=== PATIENT | female | born 1955 | race Caucasian/White ===

== ENCOUNTER 2024-06-28 09:44 | Outpatient (AMB) | payer MEDICARE, SELFPAY ==
--- NOTE | 2024-06-28 10:21 | A.OFFVIS_ITS ---
Vital Signs 06/28/24 10:23 Height 4 ft 11 in BP 152/94 H Blood Pressure Location Lt brachial Position Sitting Respiration 16 Pulse 64 Pulse Source Pulse Oximeter Pulse Oximetry (%) 98 Oxygen Delivery Method Room Air Intake Visit Reasons: Radiculopathy lumbar region Direct Marketing Coordinator Required: No Allergies No Known Allergies Allergy (Verified 06/28/24 10:25) Medication List - Last Reconciled 06/28/24 by Madison Sanchez LPN alprazolam 0.25 mg PO DAILY PRN cholecalciferol (vitamin D3) 25 mcg PO DAILY geriatric [id number]-[id number] 1 tab PO DAILY hydrocodone-acetaminophen 5-325 mg 1 tab PO BID PRN ibuprofen 200 mg PO Q6H PRN magnesium 250 mg PO DAILY vitamin B complex 1 tab PO DAILY HPI HPI Radiculopathy lumbar region: Details: History of Present Illness The patient is a 68-year-old female presenting with chronic low back pain. She has a history of lumbar spinal stenosis, scoliosis with a Cha angle of 65 degrees, and lumbar spondylolisthesis. The patient reports her low back pain primarily in the lower back, radiating towards the right buttock and right anterior thigh, described as an intensity of 8/10 in the morning and decreasing to around 3/10 with medication. This pain has been ongoing and exacerbates in the morning. She has undergone multiple treatments in the past, including two epidural steroid injections: the first in December 2023 providing relief for approximately one month, and the second in April 2024, which continues to be somewhat effective. An MRI previously showed severe spinal canal stenosis at the L4-5 level with significant scoliosis and lateral listhesis of multiple lumbar vertebrae. Her pain management strategy has included the use of Naproxen and Advil for pain relief and PRN Vicodin at night. Previous physical therapy and chiropractic manipulation have been ineffective. Pain Description - Onset: Longstanding - Quality: Radiating pain - Primary Location: Lower back - Radiation: Right buttock and right anterior thigh - Intensity: 8/10 in the morning, 3/10 with medication - Exacerbating Factors: Morning activities; standing and bending backwards - Relieving Factors: Naproxen, Advil, epidural steroids - Interference: Sleep disturbance; daily activities compromised Physical Exam - Musculoskeletal- Standing upright is uncomfortable; lumbar extension limited; right side twisting and bending backwards reproduces discomfort; forward flexion without pain Results - MRI (past result): Severe spinal canal stenosis with significant compression at the L4-5 level; moderate stenosis at L3-4 level; severe lumbar scoliosis with Cha angle of 65 degrees; lateral listhesis of L4 on L5, L3 on L4, as well as L1 on L2 Pain Management - Affect: Pain impacts sleep quality and daily activities - Analgesia: Current pain managed with Naproxen, Advil, and PRN Vicodin; pain level ranges from 3/10 to 8/10 - Adverse Effects: Concern regarding long-term steroid use and osteoporosis - Activities of Daily Living: Limited by pain, especially in the morning - Aberrant Drug Related Behaviors: None reported Physical Exam Vital Signs: Last Vital Signs Pulse 64 06/28/24 10:23 Resp 16 06/28/24 10:23 BP 152/94 H 06/28/24 10:23 Pulse Ox 98 06/28/24 10:23 Oxygen Delivery Method Room Air 06/28/24 10:23 Assessment & Plan Assessment & Plan (1) Postlaminectomy syndrome: Code(s): M96.1 - Postlaminectomy syndrome, not elsewhere classified Category: Medical (2) Scoliosis: Code(s): M41.9 - Scoliosis, unspecified Category: Medical (3) Spondylolisthesis, lumbar region: Code(s): M43.16 - Spondylolisthesis, lumbar region Category: Medical (4) Lumbar spondylosis: Code(s): M47.816 - Spondylosis without myelopathy or radiculopathy, lumbar region Category: Medical (5) Dysfunction of the multifidus muscle of lumbar region: Code(s): M62.85 - Dysfunction of the multifidus muscles, lumbar region Category: Medical Plan Plan - Discussed SCS and temporary PNS as potential strategies for refractory LBP. Patient wants to begin with trial of right L-medial branch nerve stimulator placement - Minimize use of further corticosteroid injections if nerve stimulator proves effective - Obtain insurance authorization for nerve stimulator trial - Consider continuation of epidural steroid injections if pain persists Patient was informed and verbally consented to the use of an ambient scribe for clinic note documentation during this visit. Discussion Notes I discussed with the patient the likelihood of success with a right L-medial branch nerve stimulator placement for chronic intractable back pain. I explained that, while the MRI findings are concerning, the symptoms are not as severe as the imaging suggests. Potential benefits include a 70% response rate and 3 to 6 months of pain relief. Risks of continued epidural steroid injections include osteoporosis and elevated blood sugar and blood pressure. Alternatives and the procedure were explained with the assistance of a brochure. I emphasized that nerve stimulation could reduce the need for further steroid injections. The patient was informed about insurance coverage considerations for the procedure and advised that driving is permissible with the nerve stimulator device turned off. I will follow up with her once authorization is obtained. Patient Instructions - Wait for our call regarding insurance authorization for the nerve stimulator trial - Review brochure provided about the nerve stimulator for additional information - Continue current pain medications as needed - Avoid soaking (e.g., baths, pools) with the nerve stimulator - Monitor for any new symptoms or side effects from pain management approaches Coding Level of Care Code New Pt Level 4 (73920) Diagnoses Postlaminectomy syndrome M96.1 Scoliosis M41.9 Spondylolisthesis, lumbar region M43.16 Lumbar spondylosis M47.816 Dysfunction of the multifidus muscle of lumbar region M62.85
--- OUTSIDE RECORDS SUMMARY | 2024-06-28 10:22 | XMS_ITS | Data Portability ---
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 Plan of Treatment Reminders Order Date Submit Date Provider Last Modified By Organization Details Last Modified Time Details Appointments None recorded. Lab fecal occult blood, immunoassa y, stool 2016 017 [facility] (Lab), [address] [place], [address], 8 10:50:10 CBC 2016 017 [facility] (Lab), [address] [place], [address], 7 16:57:33 CMP, serum or plasma 2016 017 [facility] (Lab), [address] [place], [address], 7 16:31:48 fecal occult blood, immunoassa y, stool 2017 018 [facility] (Lab), [address] [place], [address], 8 15:07:17 CMP, serum or plasma 2017 018 [facility] (Lab), [address] [place], [address], 8 17:18:55 CBC 2017 018 [facility] (Lab), [address], [place], [address], 8 16:33:54 lipid panel, serum 2017 018 [facility] (Lab), [address] [place], [address], 8 17:18:57 colon cancer screening, stool - Certificat Ashlee am a licensed medical profession al authorized to order Cologuard. This test is medically necessary and the patient is eligible to use Cologuard. I will maintain the privacy of test results and related informatio n as required by HIPAA. I authorize [facility] to obtain reimbursem ent for Cologuard and to directly contact and collect a second sample from the patient as appropriat e.ICD-10 Code: Z12.11 2018 019 [facility] (Cologuard Orders Only), [address], [address], [place], [address], 0 07:23:21 CBC 2018 019 [facility] (Lab), [address] [place], [address], 9 15:59:34 CMP, serum or plasma 2018 [facility] (Lab), [address], [place], [address], 9 16:15:08 cholestero l, total, serum 2018 019 [facility] (Lab), [address] [place], [address], 9 16:15:09 HDL cholestero l, serum 2018 019 [facility] (Lab), [address] [place], [address], 9 16:15:10 glycohemog lobin, total, blood 2018 019 [facility] (Lab), [address] [facility] [address], [place], [address], 9 17:36:34 TSH, serum or plasma 2018 019 [facility] (Lab), [address] [facility] [address], [place], [address], 9 16:15:[address] referral - aortic valve regurg noted on echo, abnormal ECG 2015 016 [facility] (Cardiology), [address] [place], [address], 6 13:42:57 orthopedic referral - continued right shoulder pain 2016 017 [email or web address] Not available 7 10:21:50 orthopedic referral - Left middle finger 2016 017 [facility] Not available 7 10:22:39 Procedures None recorded. Surgeries None recorded. Imaging MAMMO, screening, digital, bilateral 2018 019 [facility] (Central Scheduling), [address] [place] [address], [address], 0 11:45:15 bone density 2018 019 [facility] (Central Scheduling), [address] [place] [address], [address], 0 08:18:53 Medication Orders TobraDex 0.3 %-0.1 % eye ointment 2016 017 [facility], [address] [facility] [place], [address], 8 11:03:55 Augmentin 875 mg-125 mg tablet 2017 018 [facility], [address] [facility] [place], [address], 8 09:28:25 codeine 10 mg-guaifen esin 100 mg/5 mL oral liquid 2017 018 [facility], [address] [place], [address], 8 09:28:27 ProAir HFA 90 mcg/actuat ion aerosol inhaler 2017 018 [facility], [address] [place], [address], 8 09:28:29 ProAir HFA 90 mcg/actuat ion aerosol inhaler 2018 019 [facility], [address] [place], [address], 9 10:48:28 Patient TargetsNo targets recorded. Patient Instructions Encounter Date Encounter Id Patient Instructions Last Modified By Organization Details Last Modified Time 07/24/2015 [id number] Will send to cardiology.? ? ? Will f/u as needed. [email or web address] Not available 07/24/2015 14:17:50 11/05/2016 [id number] Declines colonoscopy referral at this time. Will do ifob. Declines any help with insomnia or shoulder pain. Will send back to ortho to have shoulder reassessed and for trigger finger. F/u as needed. [email or web address] Not available 11/05/2016 10:49:31 07/07/2017 [id number] Will return to office if symptoms do not improve with treatment. [email or web address] Not available 07/07/2017 11:45:19 02/14/2018 [id number] Breast US in Apr , will get ifob. she declines flu vacc. Will call patient when lab tests are resulted. [email or web address] Not available 02/21/2018 22:29:09 04/03/2019 [id number] controlling your asthma: care instructions [email or web address] Not available 04/03/2019 10:48:00 learning about asthma [facility] Not available 04/03/2019 10:48:00 aortic valve regurgitation: care instructions [email or web address] Not available 04/03/2019 10:36:46 Reason for Referral [employer] Referral for Ao rtic valve regurgitation aortic valve regurg noted on echo, abnormal ECG Referring Physician: Felicity Ad[facility], Encounter Date: 07/24/2015 Orthopedic Referral for Julio Cesar ps tendinitis continued right shoulder pain Referring Physician: Felicity Adame [facility], Encounter Date: 11/05/2016 Orthopedic Referral for Acqu ired trigger finger Left middle finger Referring Physician: Felicity Adame [facility], Encounter Date: 11/05/2016 Results Created Date Observation Date Name Description Value Unit Range Abnormal Flag Note LastModifiedBy Organization Detail LastModifiedTime 04/02/20 20 04/02/2020 nonin vasiv e color ectal cance r DNA + occul t blood scree lance, stool cologuard result Cancel led - Order d not applic able This order has expir ed becau se it has excee ded 365 days from the initi al order . Pleas e conta ct the labor atory to reord er this test if clini jcarlos indic ated. Test Type: Capac site algor ithmi c bety sis of stool DNA-b odell rosado with hemog lobin immun oassa y. Quant itati ve value s of indiv idual bioma rkers are not repor table and are not assoc iated with indiv idual bioma rker resul t refer ence range s. Preca ution s and Limit ation s: Colog uard is inten ded for color ectal cance r scree lance of adult s of eithe r sex, 45 years or older , who are at [facility] for CRC. Colog uard has been appro rosita for use by the U.[place]. FDA. Colog uard may produ ce a false negat page or false posit page resul t. A negat page Colog uard test resul t does not guara ntee the absen ce of color ectal cance r (CRC) or advan rehana adeno ma (pre- cance r). Patie nts with a negat page Colog uard test resul t shoul d be advis ed to nel nue parti cipat ing in a color ectal cance r scree lance progr am. The scree lance inter edi for Colog uard is curre ntly recom caesar d at an inter edi of every 3 years by the Ameri can Cance r Socie ty and U.S. Multi -Soci ety Task Force . A false posit page resul t occur s when Colog uard produ donal a posit page resul t, even thoug h a colon oscop y may not find color ectal cance r or preca ncero us polyp s. The perfo rmanc e of Colog uard has been estab lishe d in a cross secti onal study (i.e. , singl e point in time) of [facility] adult s aged 50-84 . Colog uard perfo rmanc e in patie nts ages 45 to 49 years was estim ated by elizabeth-jacinta raymond bety sis of near- age group s. Colog uard perfo rmanc e data in a 10,00 0 patie nt pivot al study using colon oscop y as the refer ence metho d can be acces sed at the follo wing locat ion: www.e xactl abs.c om/re yariel . Addit ional descr iptio n of the Colog uard test proce ss, warni ngs and preca ution s can be found at www.c psychiatric m. Rx only. Not Available [facility] (Cologuard Orders Only) [address], [place], [address], 04/02/2020 06:09:37 11/06/19 17 11/05/2016 CMP, serum or plasm a glucose 102 mg/dL 70-109 normal Not Available [address] [place] [address], [address], 11/05/2016 16:31:48 11/06/19 17 11/05/2016 CMP, serum or plasm a BUN 16 mg/dL 6-23 normal Not Available [address] [place] [address], [address], 11/05/2016 16:31:48 11/06/19 17 11/05/2016 CMP, serum or plasm a creatinine 0.87 mg/dL 0.0-1. 3 normal Not Available [address] [place] [address], [address], 11/05/2016 16:31:48 11/06/19 17 11/05/2016 CMP, serum or plasm a glomerular filtration rate > 60 normal Units : mL/mi n/1.7 3 m2 Estim ated GFR (eGFR ) shoul d not be used for patie nts with acute kidne y injur y or ESRD (crea tinin e shoul d be at stead y state and stabl e to use). eGFR is calcu lated using the 2009 CKD-E PI creat inine equat ion, which is now the recom caesar d equat ion to estim ate GFR based on creat inine per lates t KDIGO (Kidn ey Disea se Impro ving Globa l Outco mes) Guide lines . KDIGO recom mends CKD now be class ified based on cause , GFR categ ory, and album inuri a categ ory. GFR categ ories will not be repor jayy by the lab for G1 or G2 (eGFR >60). GFR categ ories shoul d be assig frida as: eGFR 45-59 = G3a (mild ly to moder ately decre ased) , eGFR 30-44 = G3b (mode ratel y to sever radha decre ased) , eGFR 15-29 G4 (cristy rely decre ased) , eGFR< 15 G5 (kidn ey failu re). Not Available [address] [place] [address], [address], 11/05/2016 16:31:48 11/06/19 17 11/05/2016 CMP, serum or plasm a calcium 9.1 mg/dL 8.3-9. 9 normal Effec tive 5: Pleas e note the refer ence range for this test has perla ed. Not Available [address] [place] [address], [address], 11/05/2016 16:31:48 11/06/19 17 11/05/2016 CMP, serum or plasm a total protein 6.8 g/dL 5.9-7. 9 normal Effec tive 5/5/1 5: Pleas e note the refer ence range for this test has perla ed. Exact pedia tric range s are not estab lishe d, but tend to be lower than adult range s. Not Available [address] [place] [address] [address] [place] [address], [address], 11/05/2016 16:31:48 11/06/19 17 11/05/2016 CMP, serum or plasm a albumin 4.1 g/dL 2.9-4. 7 normal Effec tive 015: The Album in metho d perla ed from a BCG to a BCP metho d. Resul ts will be appro ximat radha 0.4 g/dL lower than the old metho d. Laney nair note the perla e in the refer ence range . Not Available [address] [place] [address], [address], 11/05/2016 16:31:48 11/06/19 17 11/05/2016 CMP, serum or plasm a alkaline phosphatase 48 IU/L 18-210 normal Not Available [address] [place] [address], [address], 11/05/2016 16:31:48 11/06/19 17 11/05/2016 CMP, serum or plasm a SGOT (AST) 19 IU/L 15-37 normal Effec tive 5: Laney nair note the refer ence range for this test has perla ed. Not Available [address] [place] [address], [address], 11/05/2016 16:31:48 11/06/19 17 11/05/2016 CMP, serum or plasm a bilirubin total 0.3 mg/dL 0.2-1. 3 normal Not Available [address] [place] [address], [address], 11/05/2016 16:31:48 11/06/19 17 11/05/2016 CMP, serum or plasm a SGPT (ALT) 31 IU/L 13-56 normal Not Available [address] [place] [address] Drawing [address] [place] [address], [address], 11/05/2016 16:31:48 11/06/19 17 11/05/2016 CMP, serum or plasm a sodium 133 mEq/L 135-14 5 low Not Available [address] [place] [address], [address], 11/05/2016 16:31:48 11/06/19 17 11/05/2016 CMP, serum or plasm a potassium 4.3 mEq/L 3.5-5. 1 normal Not Available [address] [place] [address], [address], 11/05/2016 16:31:48 11/06/19 17 11/05/2016 CMP, serum or plasm a chloride 97 mEq/L 98-112 low Not Available [address] [place] [address], [address], 11/05/2016 16:31:48 11/06/19 17 11/05/2016 CMP, serum or plasm a CO2 31 mEq/L 20-32 normal Not Available [address] [place] [address], [address], 11/05/2016 16:31:48 11/06/19 17 11/05/2016 CMP, serum or plasm a anion gap 5 mEq/L 5-15 normal Not Available [address] [place] [address], [address], 11/05/2016 16:31:48 11/06/19 17 11/05/2016 CBC WBC count 4.9 K/mm3 4.0-11 .0 normal Not Available [address] [place] [address], [address], 11/05/2016 16:57:33 11/06/19 17 11/05/2016 CBC red blood cell count 4.17 M/uL 4.00-5 .20 normal Not Available [address] [place] [address], [address], 11/05/2016 16:57:33 11/06/19 17 11/05/2016 CBC hemoglobin 13.2 gm/dL 12.0-1 6.0 normal Not Available [address] [place] [address], [place], [address], 11/05/2016 16:57:33 11/06/19 17 11/05/2016 CBC hematocrit 40.0 % 36.0-4 6.0 normal Not Available [address] [place] [address], [address], 11/05/2016 16:57:33 11/06/19 17 11/05/2016 CBC MCV 95.8 fL 86-99 normal Not Available [address] [place] [address], [address], 11/05/2016 16:57:33 11/06/19 17 11/05/2016 CBC RDW 12.2 % 11.5-1 6.0 normal Not Available [address] [place] [address], [address], 11/05/2016 16:57:33 11/06/19 17 11/05/2016 CBC plt count 251 K/uL 140-44 0 normal Not Available [address] [place] [address], [address], 11/05/2016 16:57:33 11/06/19 17 11/05/2016 CBC ne# 3.2 K/uL 1.5-7. 5 normal Not Available [address] [place] [address], [address], 11/05/2016 16:57:33 11/06/19 17 11/05/2016 CBC ly# 1.2 K/uL 1.0-4. 5 normal Not Available [address] [place] [address], [address], 11/05/2016 16:57:33 11/06/19 17 11/05/2016 CBC MO# 0.2 K/uL 0.0-0. 8 normal Not Available [address] [place] [address], [address], 11/05/2016 16:57:33 11/06/19 17 11/05/2016 CBC eo# 0.3 K/uL 0.0-0. 4 normal Not Available [address] [place] [address], [address], 11/05/2016 16:57:33 11/06/19 17 11/05/2016 CBC ba# 0.0 K/uL 0.0-0. 2 normal Not Available [address] [place] [address], [address], 11/05/2016 16:57:33 11/06/19 17 11/05/2016 CBC ne% 64.5 % normal Not Available [address] [place] [address], [address], 11/05/2016 16:57:33 11/06/19 17 11/05/2016 CBC ly% 25.0 % normal Not Available [address] [place] [address], [address], 11/05/2016 16:57:33 11/06/19 17 11/05/2016 CBC MO% 4.9 % normal Not Available [address] [place] [address], [address], 11/05/2016 16:57:33 11/06/19 17 11/05/2016 CBC eo% 5.2 % normal Not Available [address] [place] [address], [address], 11/05/2016 16:57:33 11/06/19 17 11/05/2016 CBC ba% 0.5 % normal Not Available [address] [place] [address], [address], 11/05/2016 16:57:33 12/08/19 17 12/07/2016 sodiu m, urine sodium, random urine 21 mEq/L normal Not Available [address] [place] [address], [address], 12/07/2016 14:17:24 12/08/19 17 12/07/2016 BMP, serum or plasm a glucose 83 mg/dL 70-109 normal Not Available [address] [place] [address], [address], 12/07/2016 14:33:32 12/08/19 17 12/07/2016 BMP, serum or plasm a BUN 19 mg/dL 6-23 normal Not Available [address] [place] [address], [address], 12/07/2016 14:33:32 12/08/19 17 12/07/2016 BMP, serum or plasm a creatinine 1.17 mg/dL 0.0-1. 3 normal Not Available [address] [place] [address], [address], 12/07/2016 14:33:32 12/08/19 17 12/07/2016 BMP, serum or plasm a glomerular filtration rate 53 normal Units : mL/mi n/1.7 3 m2 Estim ated GFR (eGFR ) shoul d not be used for patie nts with acute kidne y injur y or ESRD (crea tinin e shoul d be at stead y state and stabl e to use). eGFR is calcu lated using the 2009 CKD-E PI creat inine equat ion, which is now the recom caesar d equat ion to estim ate GFR based on creat inine per lates t KDIGO (Kidn ey Disea se Impro ving Globa l Outco mes) Guide lines . KDIGO recom mends CKD now be class ified based on cause , GFR categ ory, and album inuri a categ ory. GFR categ ories will not be repor jayy by the lab for G1 or G2 (eGFR >60). GFR categ ories shoul d be assig frida as: eGFR 45-59 = G3a (mild ly to moder ately decre ased) , eGFR 30-44 = G3b (mode ratel y to sever radha decre ased) , eGFR 15-29 G4 (cristy rely decre ased) , eGFR< 15 G5 (kidn ey failu re). Not Available [address] [place] [address], [address], 12/07/2016 14:33:32 12/08/19 17 12/07/2016 BMP, serum or plasm a calcium 8.9 mg/dL 8.3-9. 9 normal Effec tive 5: Pleas e note the refer ence range for this test has perla ed. Not Available [address] [place] [address] [address] [place] [address], [address], 12/07/2016 14:33:32 12/08/19 17 12/07/2016 BMP, serum or plasm a sodium 135 mEq/L 135-14 5 normal Not Available [address] [place] [address], [address], 12/07/2016 14:33:32 12/08/19 17 12/07/2016 BMP, serum or plasm a potassium 4.4 mEq/L 3.5-5. 1 normal Not Available [address] [place] [address], [address], 12/07/2016 14:33:32 12/08/19 17 12/07/2016 BMP, serum or plasm a chloride 97 mEq/L 98-112 low Not Available [address] [place] [address], [address], 12/07/2016 14:33:32 12/08/1912/07/2016 BMP, serum or plasm a CO2 30 mEq/L 20-32 normal Not Available [address] [place] [address], [address], 12/07/2016 14:33:32 12/08/1912/07/2016 BMP, serum or plasm a anion gap 8 mEq/L 5-15 normal Not Available [address] [place] [address], [address], 12/07/2016 14:33:32 12/08/1912/07/2016 TSH, serum or plasm a thyroid stimulating hormone 2.02 uIU/m L 0.36-3 .74 normal Effec tive 5: Laney nair note the refer ence range for this test has perla ed. Not Available [address] [place] [address], [address], 12/07/2016 14:33:33 02/15/20 18 02/14/2018 CBC WBC count 5.0 K/mm3 4.0-11 .0 normal Not Available [address] [place] [address], [address], 02/14/2018 16:33:54 02/15/20 18 02/14/2018 CBC red blood cell count 4.24 M/uL 4.00-5 .50 normal Not Available [address] [place] [address], [address], 02/14/2018 16:33:54 02/15/20 18 02/14/2018 CBC hemoglobin 13.6 gm/dL 12.0-1 6.0 normal Not Available [address] [place] [address], [address], 02/14/2018 16:33:54 02/15/20 18 02/14/2018 CBC hematocrit 40.0 % 37.0-4 7.0 normal Not Available [address] [place] [address], [address], 02/14/2018 16:33:54 02/15/20 18 02/14/2018 CBC MCV 94.3 fL 80.0-1 00.0 normal Not Available [address] [place] [address], 84[address], 02/14/2018 16:33:54 02/15/20 18 02/14/2018 CBC RDW 12.1 % 11.5-1 6.0 normal Not Available [address] [place] [address], [address], 02/14/2018 16:33:54 02/15/20 18 02/14/2018 CBC plt count 249 K/uL 140-40 0 normal Not Available [address] [place] [address], 12[address], 02/14/2018 16:33:54 02/15/20 18 02/14/2018 CBC NRBC% 0.0 % 0.0-0. 7 normal Not Available [address] [place] [address], [address], 02/14/2018 16:33:54 02/15/20 18 02/14/2018 CBC ne# 2.74 K/uL 1.50-7 .50 normal Not Available [address] [place] [address] [address] [place] [address], [address], 02/14/2018 16:33:54 02/15/20 18 02/14/2018 CBC ly# 1.28 K/uL 1.00-4 .50 normal Not Available [address] [place] [address] [address] [place] [address], [address], 02/14/2018 16:33:54 02/15/20 18 02/14/2018 CBC MO# 0.41 K/uL 0.00-0 .80 normal Not Available [address] [place] [address] [address] [place] [address], [address], 02/14/2018 16:33:54 02/15/20 18 02/14/2018 CBC eo# 0.51 K/uL 0.00-0 .40 high Not Available [address] [place] [address] [address] [place] [address], [address], 02/14/2018 16:33:54 02/15/20 18 02/14/2018 CBC ba# 0.04 K/uL 0.00-0 .20 normal Not Available [address] [place] [address] [address] [place] [address], [address], 02/14/2018 16:33:54 02/15/20 18 02/14/2018 CBC Ig# 0.01 K/uL 0.00-0 .10 normal Not Available [address] [place] [address] [address] [place] [address], 78[address], 02/14/2018 16:33:54 02/15/20 18 02/14/2018 CBC ne% 54.9 % normal Not Available [address] [place] [address] [address] [place] [address], [address], 02/14/2018 16:33:54 02/15/20 18 02/14/2018 CBC ly% 25.7 % normal Not Available [address] [place] [address] [address] [place] [address], [address], 02/14/2018 16:33:54 02/15/20 18 02/14/2018 CBC MO% 8.2 % normal Not Available [address] [place] [address], [address], 02/14/2018 16:33:54 02/15/20 18 02/14/2018 CBC eo% 10.2 % normal Not Available [address] [place] [address], 336[address], 02/14/2018 16:33:54 02/15/20 18 02/14/2018 CBC ba% 0.8 % normal Not Available [address] [place] [address], 89[address], 02/14/2018 16:33:54 02/15/20 18 02/14/2018 CBC Ig% 0.2 % 0.0-1. 4 normal Not Available [address] [place] [address], 72921, 02/14/2018 16:33:54 02/15/20 18 02/14/2018 CMP, serum or plasm a glucose 91 mg/dL 70-100 normal Not Available [address] [place] [address], 74548, 02/14/2018 17:18:55 02/15/20 18 02/14/2018 CMP, serum or plasm a BUN 15 mg/dL 6-23 normal Not Available [address] [place] [address], 98347, 02/14/2018 17:18:55 02/15/20 18 02/14/2018 CMP, serum or plasm a creatinine 0.89 mg/dL 0.0-1. 3 normal Not Available [address] [place] [address], 82256, 02/14/2018 17:18:55 02/15/20 18 02/14/2018 CMP, serum or plasm a glomerular filtration rate > 60 normal Units : mL/mi n/1.7 3 m2 Estim ated GFR (eGFR ) cherise d not be used for patie nts with acute kidne y injur y or ESRD (geraldine kumar be at stead y state and stabl e to use). eGFR is calcu lated using the 2009 CKD-E PI creat inine equat ion, which is now the recom caesar d equat ion to estim ate GFR based on creat inine per lates t KDIGO (Kidn ey Disea se Impro ving Globa l Outco mes) Guide lines . KDIGO recom mends CKD now be class ified based on cause , GFR categ ory, and album inuri a categ ory. GFR categ ories will not be repor jayy by the lab for G1 or G2 (eGFR >60). GFR categ ories shoul d be assig frida as: eGFR 45-59 = G3a (mild ly to moder ately decre ased) , eGFR 30-44 = G3b (mode ratel y to sever radha decre ased) , eGFR 15-29 G4 (cristy rely decre ased) , eGFR< 15 G5 (kidn ey failu re). Not Available [address] [place] [address], [address], 02/14/2018 17:18:55 02/15/20 18 02/14/2018 CMP, serum or plasm a calcium 9.7 mg/dL 8.3-9. 9 normal Not Available [address] [place] [address], 13376, 02/14/2018 17:18:55 02/15/2002/14/2018 CMP, serum or plasm a total protein 7.0 g/dL 5.9-7. 9 normal Exact pedia tric range s are not estab lishe d, but tend to be lower than adult range s. Not Available [address] [place] [address], 758[address], 02/14/2018 17:18:55 02/15/20 18 02/14/2018 CMP, serum or plasm a albumin 4.5 g/dL 2.9-4. 7 normal Not Available [address] [place] [address], 16634, 02/14/2018 17:18:55 02/15/20 18 02/14/2018 CMP, serum or plasm a alkaline phosphatase 50 IU/L 18-210 normal Not Available [address] [place] [address], 87664, 02/14/2018 17:18:55 02/15/20 18 02/14/2018 CMP, serum or plasm a SGOT (AST) 30 IU/L 15-37 normal Not Available [address] [place] [address], [address], 02/14/2018 17:18:55 02/15/20 18 02/14/2018 CMP, serum or plasm a bilirubin total 0.4 mg/dL 0.2-1. 3 normal Not Available [address] [place] [address], 22223, 02/14/2018 17:18:55 02/15/20 18 02/14/2018 CMP, serum or plasm a SGPT (ALT) 33 IU/L 13-56 normal Not Available [address] [place] [address], 14592, 02/14/2018 17:18:55 02/15/20 18 02/14/2018 CMP, serum or plasm a sodium 138 mEq/L 135-14 5 normal Not Available [address] [place] [address], 13163, 02/14/2018 17:18:55 02/15/20 18 02/14/2018 CMP, serum or plasm a potassium 4.9 mEq/L 3.5-5. 1 normal Not Available [address] [place] [address], 98489, 02/14/2018 17:18:55 02/15/20 18 02/14/2018 CMP, serum or plasm a chloride 100 mEq/L 98-112 normal Not Available [address] [place] [address], 84204, 02/14/2018 17:18:55 02/15/20 18 02/14/2018 CMP, serum or plasm a CO2 30 mEq/L 20-32 normal Not Available [address] [place] [address], 77131, 02/14/2018 17:18:55 02/15/20 18 02/14/2018 CMP, serum or plasm a anion gap 8 mEq/L 5-15 normal Not Available [address] [place] [address] Draw[address] [place] [address], 23636, 02/14/2018 17:18:55 02/15/20 18 02/14/2018 lipid panel , serum cholesterol 228 mg/dL normal BORDE RLINE HIGH <200 Rodolfo able 200-2 39 Borde rline High >=240 High Not Available [address] [place] [address], [address], 02/14/2018 17:18:57 02/15/20 18 02/14/2018 lipid panel , serum triglyceride 76 mg/dL normal YOIL L <=150 Yoli l 150-1 99 Borde rline High 200-4 99 High >=500 Very High Not Available [address] [place] [address], 198[address], 02/14/2018 17:18:57 02/15/20 18 02/14/2018 lipid panel , serum HDL 88 mg/dL normal OPTIM AL <40 Low >=60 Optim al Not Available [address] [place] [address], 59181, 02/14/2018 17:18:57 02/15/20 18 02/14/2018 lipid panel , serum calculated LDL 125 mg/dL normal NEAR OPTIM AL <100 Optim al 100-1 29 Near optim al 130-1 59 Borde rline High 160-1 89 High >=190 Very High The above class ifica tions are based on the recom menda tions of the NCEP Exper t Panel , (ATP III, 2001) . Not Available [address] [place] [address], [address], 02/14/2018 17:18:57 02/22/20 18 02/21/2018 fecal occul t blood , immun oassa y, stool immuno fecal occult blood NEGATI VE negati ve normal Not Available [address] [place] [address], [address], 02/21/2018 15:07:17 04/03/2004/03/2019 CBC WBC count 6.1 K/mm3 4.0-11 .0 normal Not Available [address] [place] [address], [address], 04/03/2019 15:59:34 04/03/2004/03/2019 CBC red blood cell count 4.10 M/uL 4.00-5 .50 normal Not Available [address] [place] [address], 33471, 04/03/2019 15:59:34 04/03/2004/03/2019 CBC hemoglobin 13.0 gm/dL 12.0-1 6.0 normal Not Available [address] [place] [address], 64235, 04/03/2019 15:59:34 04/03/2004/03/2019 CBC hematocrit 39.7 % 37.0-4 7.0 normal Not Available [address] [place] [address], 85245, 04/03/2019 15:59:34 04/03/2004/03/2019 CBC MCV 96.8 fL 80.0-1 00.0 normal Not Available [address] [place] [address], 21403, 04/03/2019 15:59:34 04/03/2004/03/2019 CBC RDW 11.9 % 11.5-1 6.0 normal Not Available [address] [place] [address], 865[address], 04/03/2019 15:59:34 04/03/2004/03/2019 CBC plt count 244 K/uL 140-40 0 normal Not Available [address] [place] [address], 34487, 04/03/2019 15:59:34 04/03/2004/03/2019 CBC mean platelet volume 10.5 fL 8.6-12 .5 normal Not Available [address] [place] [address], 56987, 04/03/2019 15:59:34 04/03/20 19 04/03/2019 CBC NRBC% 0.0 % 0.0-0. 7 normal Not Available [address] [place] [address] [address] [place] [address], [address], 04/03/2019 15:59:34 04/03/20 19 04/03/2019 CBC ne# 3.89 K/uL 1.50-7 .50 normal Not Available [address] [place] [address], [address], 04/03/2019 15:59:34 04/03/20 19 04/03/2019 CBC ly# 1.41 K/uL 1.00-4 .50 normal Not Available [address] [place] [address], [address], 04/03/2019 15:59:34 04/03/20 19 04/03/2019 CBC MO# 0.41 K/uL 0.00-0 .80 normal Not Available [address] [place] [address], [address], 04/03/2019 15:59:34 04/03/20 19 04/03/2019 CBC eo# 0.32 K/uL 0.00-0 .40 normal Not Available [address] [place] [address], 88388, 04/03/2019 15:59:34 04/03/20 19 04/03/2019 CBC ba# 0.05 K/uL 0.00-0 .20 normal Not Available [address] [place] [address], [address], 04/03/2019 15:59:34 04/03/20 19 04/03/2019 CBC Ig# 0.01 K/uL 0.00-0 .10 normal Not Available [address] [place] [address], 59[address], 04/03/2019 15:59:34 04/03/20 19 04/03/2019 CBC ne% 63.8 % normal Not Available [address] [place] [address], [address], 04/03/2019 15:59:34 04/03/20 19 04/03/2019 CBC ly% 23.2 % normal Not Available [address] [place] [address], 6[address], 04/03/2019 15:59:34 04/03/20 19 04/03/2019 CBC MO% 6.7 % normal Not Available [address] [place] [address], 864[address], 04/03/2019 15:59:34 04/03/2004/03/2019 CBC eo% 5.3 % normal Not Available [address] [place] [address], 58[address], 04/03/2019 15:59:34 04/03/2004/03/2019 CBC ba% 0.8 % normal Not Available [address] [place] [address], 6[address], 04/03/2019 15:59:34 04/03/2004/03/2019 CBC Ig% 0.2 % 0.0-1. 4 normal Not Available [address] [place] [address], 13362, 04/03/2019 15:59:34 04/03/2004/03/2019 CMP, serum or plasm a glucose 91 mg/dL 70-100 normal Not Available [address] [place] [address], 29764, 04/03/2019 16:15:08 04/03/2004/03/2019 CMP, serum or plasm a BUN 24 mg/dL 6-23 high Not Available [address] [place] [address], 25063, 04/03/2019 16:15:08 04/03/2004/03/2019 CMP, serum or plasm a creatinine 0.82 mg/dL 0.0-1. 3 normal Not Available [address] [place] [address], 13621, 04/03/2019 16:15:08 04/03/20 19 04/03/2019 CMP, serum or plasm a glomerular filtration rate > 60 normal Units : mL/mi n/1.7 3 m2 Estim ated GFR (eGFR ) shoul d not be used for patie nts with acute kidne y injur y or ESRD (crea tinin e shoul d be at stead y state and stabl e to use). eGFR is calcu lated using the 2009 CKD-E PI creat inine equat ion, which is now the recom caesar d equat ion to estim ate GFR based on creat inine per lates t KDIGO (Kidn ey Disea se Impro ving Globa l Outco mes) Guide lines . KDIGO recom mends CKD now be class ified based on cause , GFR categ ory, and album inuri a categ ory. GFR categ ories will not be repor jayy by the lab for G1 or G2 (eGFR >60). GFR categ ories shoul d be assig frida as: eGFR 45-59 = G3a (mild ly to moder ately decre ased) , eGFR 30-44 = G3b (mode ratel y to sever radha decre ased) , eGFR 15-29 G4 (cristy rely decre ased) , eGFR< 15 G5 (kidn ey failu re). Not Available [address] [place] [address], 7[address], 04/03/2019 16:15:08 04/03/20 19 04/03/2019 CMP, serum or plasm a calcium 9.7 mg/dL 8.1-10 .4 normal Not Available [address] [place] [address], 80453, 04/03/2019 16:15:08 04/03/20 19 04/03/2019 CMP, serum or plasm a total protein 6.9 g/dL 5.9-7. 9 normal Not Available [address] [place] [address], 54617, 04/03/2019 16:15:08 04/03/20 19 04/03/2019 CMP, serum or plasm a albumin 4.2 g/dL 2.9-4. 7 normal Not Available [address] [place] [address] [place], [address], 04/03/2019 16:15:08 04/03/20 19 04/03/2019 CMP, serum or plasm a alkaline phosphatase 44 IU/L 18-210 normal Not Available [address] [place] [address], 82268, 04/03/2019 16:15:08 04/03/20 19 04/03/2019 CMP, serum or plasm a SGOT (AST) 25 IU/L 15-37 normal Not Available [address] [place] [address], [address], 04/03/2019 16:15:08 04/03/20 19 04/03/2019 CMP, serum or plasm a bilirubin total 0.5 mg/dL 0.2-1. 3 normal Not Available [address] [place] [address], 40128, 04/03/2019 16:15:08 04/03/20 19 04/03/2019 CMP, serum or plasm a SGPT (ALT) 31 IU/L 13-56 normal Not Available [address] [place] [address], [address], 04/03/2019 16:15:08 04/03/20 19 04/03/2019 CMP, serum or plasm a sodium 133 mEq/L 135-14 5 low Not Available [address] [place] [address], 90257, 04/03/2019 16:15:08 04/03/20 19 04/03/2019 CMP, serum or plasm a potassium 4.5 mEq/L 3.5-5. 1 normal Not Available [address] [place] [address], 30068, 04/03/2019 16:15:08 04/03/20 19 04/03/2019 CMP, serum or plasm a chloride 97 mEq/L 98-112 low Not Available [address] [place] [address], 20906, 04/03/2019 16:15:08 04/03/20 19 04/03/2019 CMP, serum or plasm a CO2 28 mEq/L 20-32 normal Not Available [address] [place] [address] [address] [place] [address], [address], 04/03/2019 16:15:08 04/03/20 19 04/03/2019 CMP, serum or plasm a anion gap 8 mEq/L 5-15 normal Not Available [address] [place] [address] Draw[address] [place] [address], 099[address], 04/03/2019 16:15:08 04/03/20 19 04/03/2019 rafa stero l, total , serum cholesterol 234 mg/dL normal BORDE RLINE HIGH <200 Rodolfo able 200-2 39 Borde rline High >=240 High The above class ifica tions are based on the recom menda tions of the NCEP Exper t Panel , (ATP III, 2001) . Not Available [address] [place] [address], 90114, 04/03/2019 16:15:09 04/03/20 19 04/03/2019 HDL rafa stero l, serum HDL 80 mg/dL normal OPTIM AL <40 Low >=60 Optim al The above class ifica tions are based on the recom menda tions of the NCEP Exper t Panel , (ATP III, 2001) . Not Available [address] [place] [address], 90069, 04/03/2019 16:15:10 04/03/20 19 04/03/2019 TSH, serum or plasm a thyroid stimulating hormone 2.88 uIU/m L 0.36-3 .74 normal Not Available [address] [place] [address] [place] [address], 08274, 04/03/2019 16:15:11 04/03/20 19 04/03/2019 glyco hemog lobin , total , blood glycohemoglo bin (A1C) 5.5 % 4.2-6. 3 normal Recen t trans fusio n will affec t hemog lobin A1c resul ts. Not Available [address] [place] [address], 0[address], 04/03/2019 17:36:33 09/30/19 16 09/27/2015 MAMMO , scree lance, digit al, bilat tommyl [facility] DEPART [address] kaitlin kumar [place].0 1201-4 [phone] Patien t: MP VELEZ Phone: Exam Date:0 6 Exam: Dig Mammo Screen ing [place] Attend [facility] M.D.:ANDREAS MARIE MD :10/02 Age/Se x: 59/F Robert beltran M.D.: CHUY LARSEN MD EEsperanza Attend [facility] M.D.: Francis Lam: BRANDI LARSEN MD X-Ray #: [id number] Locati on: RAD.WC Other Locati on: Clinic al Histor y: ROUTIN E #[id number] 64.001 - DIG MAMMO SCREEN ING [place] BILATE RAL DIGITA L SCREEN ING MAMMOG TYRA WITH CAD: 09/30/19 16 Compar basil is made to exams dated: 015 mammog tyra, 014 mammog tyra, and 06/29/19 13 mammog tyra - [facility] . The tissue of both breast s is hetero geneou sly dense, your patien t has been inform ed of her densit y. Curren t study was also evalua jayy with a Comput er Aided Detect ion (CAD) system . There is a benign densit y in the left breast . No suspic ious masses , calcif icatio ns, or other findin gs are seen in either breast . There has been no signif icant interv al change . IMPRES VLADISLAV: BENIGN There is no mammog raphic eviden ce of malign dora. A 1 year screen ing mammog tyra is recomm ended. The patien t will be notifi ed of the result s by mail. This exam was interp reted at [facility] . Lisa. Seymour haley l/penr ad:09/29 15:17: 56 [facility] Techno logist : Hope cárdenas RT R M, [facility] letter sent: A1 Mammog bindu Normal Mammog tyra BI-RAD S: 2 Benign Access ion Number : [id number] Transc ribed by: MONTEZ Haddadp reting Physic rg: CARINA SANDOVAL MD Rec'd in [place] on : 1531 Electr onical ly Signed by: CARINA SANDOVAL MD on 1517 Techno logist : SK Exam CPT #: G0202, Order #: [id number] Report #: [id number] Med Rec#:[id number] Report Status : Signed [facility] (Radiology) [address] [place] [address], [address], 09/30/2015 17:23:16 10/06/19 17 09/30/2016 MAMMO , scree lance, digit al, bilat eral [facility] DIAGNO STIC IMAGIN G DEPART [facility] IM[facility] G DEPART [address]0 1201-4 [phone] Patien t: MP VELEZ Phone: Exam Date:0 7 Exam: Dig Mammo Screen ing [place] Attend francis M.DShruthi:ANDREAS MARIE MD :10/02 Age/Se x: 61/F Robert beltran M.D.: CHUY LARSEN MD, E.D. Attend francis M.DShruthi: Primes y Tyler MEsperanza: BRANDI LARSEN MD X-Ray #: [id number] Locati on: RAD.WC Other Locati on: Clinic al Histor y: ROUTIN E #01962 08.001 - DIG MAMMO SCREEN ING [place] BILATE RAL DIGITA L SCREEN ING MAMMOG TYRA WITH CAD: 017 Compar basil is made to exams dated: 09/30/19 16 mammog tyra, 015 mammog tyra, 014 mammog tyra, 06/29/2012 mammog tyra, and 012 mammog tyra - [facility] . The tissue of both breast s is hetero geneou sly dense, your patien t has been inform ed of her densit y. Currchad t study was also evalua jayy with a Comput er Aided Detect ion (CAD) system . There is a benign densit y in both breast s. There also are benign calcif icatio ns in the right breast . No suspic ious masses , calcif icatio ns, or other findin gs are seen in either breast . There has been no signif icant interv al change . IMPRES VLADISLAV: BENIGN There is no mammog raphic eviden ce of malign dora. A 1 year screen ing mammog tyra is recomm ended. The patien t will be notifi ed of the result s by mail. This exam was interp reted at [facility] . Gerhard lopez MD ek/pen rad: 7 12:05: 37 [facility] Techno logist : Rogerio De La O , [facility] letter sent: A1 Mammog bindu Normal Mammog tyra BI-RAD S: 2 Benign Access ion Number : [id number] Transc ribed by: [facility] Interp reting Physic rg: GERHARD WYATT MD Rec'd in [place] on : 1407 Electr onical ly Signed by: ROMI WYATT MD on 1205 Techno logist : KL Exam CPT #: G0202, Order #: [id number] Report #: [id number] Med Rec#:[id number] Report Status : Signed [facility] (Radiology) [address] [place], [address], 10/05/2016 14:21:16 10/06/19 17 10/05/2016 MAMMO , grabiele lance, digit al, bilat eral No observ ation record ed. [facility] ([facility]) [address], [place], [address], 10/05/2016 18:08:22 10/30/19 18 10/27/2017 MAMMO , scree lance, digit al, bilat eral [facility] DIAGNO STIC IMAGIN G DEPART [facility]ULT WOMEN' S IMAGIN G [address],[facility] kaitlin kumar [place].0 [phone] Patien t: MP VELEZ Phone: Exam Date:0 8 Exam: Dig Mammo Screen ing [place] Attend [facility] M.D.:ANDREAS MARIE MD :10/02 Age/Se x: 62/F Ordernarendra beltran M.D.: CHUY LARSEN MD EEsperanza Attend [facility] M.D.: Primar y Care M.D.: BRANDI LARSEN MD X-Ray #: [id number] Locati on: RAD.WC Other Locati on: Clinic al Histor y: ROUTIN E #[id number] 98.001 - DIG MAMMO SCREEN ING [place] BILATE RAL DIGITA L SCREEN ING MAMMOG TYRA WITH CAD: 10/28/19 18 Compar basil is made to exams dated: 017 mammog tyra, 09/30/19 16 mammog tyra, 015 mammog tyra, 14 mammog tyra, 06/29/19 13 mammog tyra, and 012 mammog tyra - [facility] . The tissue of both breast s is hetero geneou sly dense, your patien t has been inform ed of her densit y. Curren t study was also evalua jayy with a Comput er Aided Detect ion (CAD) system . No suspic ious masses , calcif icatio ns, or other findin gs are seen in either breast . IMPRES VLADISLAV: BENIGN There is no mammog raphic eviden ce of malign dora. A 1 year screen ing mammog tyra is recomm ended. Increa sed lifeti me risk for develo ping breast cancer based on: -Famil y histor y, 1st degree relati ve; post menopa usal Given the calcul ated risk, recomm end annual screen ing breast MRI in additi on to annual screen ing mammog bindu, altern ating each every 6 months . Breast MRI is recomm ended in 6 months . RISK ASSESS MENT: Based on the NCI/NS ABP BCRA tool, this patien edgardo's calcul ated lifeti me risk for develo ping breast cancer is 21.4%. The patien t will be notifi ed of the result s by mail. This exam was interp reted at [facility] . Gladys Trejo M.D. cl/:10/28/2017 16:42: [facility] : Surekha John do RT , [facility] letter sent: A1 Mammog bindu Normal Mammog tyra BI-RAD S: 2 Benign Access ion Number : [id number] Transc ribed by: [facility] Interp reting Physic rg: GLADYS TREJO MD Rec'd in [place] on : 1642 Electr onical ly Signed by: GLADYS TREJO MD on 164 Techno logist : YAYA Exam CPT #: 47881, Order #: [id number] Report #: [id number] [facility] Rec#:M [id number] Report Status : Signed [facility] (Radiology) [address] [place], [address], 10/30/2017 06:48:19 04/04/20 19 08/01/2018 US, echo ardio gram No observ ation record ed. BARCODE Not Available 2018 12:54:21 11/20/19 20 MAMMkelli Xiong digit al, bilat eral No observ ation record ed. [facility] (Central Scheduling) [address] [facility], [place], [address], 11/20/2019 16:08:59 10/03/19 21 2020 kelli [place] bilat eral [facility]ic [facility] [address] [place] [address] Mammog bindu Report Signed Patien t: Mp Velez 2793 : [address]: Aquilino stewart EMR ID: [id number] Age/Se x: 65/F E.D. Attend ing: Acct: [id number] Loc: RAD.WC PCP: Aquilino stewart MD Admit/ Svc Date: Orderi ng Physic rg: Aquilino stewart MD Date of Servic e: Proced ure(s) : MM screen ing mammo BI Reason for Exam: Routin e Access ion Number (s): [id number] Fax to: cc: Aquilino stewart MD #[id number] - MM SCREEN ING MAMMO BI EXAM: BILATE RAL DIGITA L SCREEN ING MAMMOG TYRA 3D/2D WITH CAD: 021 COMPAR ISONS: Compar basil is made to exams dated: 020 mammog tyra, 10/28/19 18 mammog tyra, and 017 [facility] . TECHNI QUE: Digita l mammog bindu was perfor med with Tomaidan gaytan Curren t study was also evalua jayy with a Comput er Aided Detect ion (CAD) system . BREAST COMPOS ITION: The breast s are hetero geneou sly dense, which may obscur e small masses . Your patien t has been inform ed of her densit y. FINDIN GS: No suspic ious masses , calcif icatio ns, or other findin gs are seen in either breast . There has been no signif icant interv al change . IMPRES VLADISLAV: NEGATI VE There is no mammog raphic eviden ce of malign dora. A 1 year screen ing mammog tyra is recomm ended. RISK ASSESS MENT: Amy Romero calcul ations report this patien t's lifeti me risk for develo ping breast cancer at 12.8%. The patien t will be notifi ed of the result s by mail. This exam [facility] at [facility] . Carina Sandoval MD ll/pen rad: 15:08: 52 [facility] Techno logist (s): Tyrell katz RT(R)( M), [facility] letter sent: A1 Mammog bindu Normal Mammog tyra BI-RAD S: 1 Negati ve Electr onical ly signed on at 1508 by Carina Sandoval MD. PKRUTI AK [facility] (Radiology) [address] [place] [address], [address], 2020 20:59:56 12/07/1906/19/2019 MAMMO , grabiele lance, bilat eral No observ ation record ed. [email or web address] Not Available 2020 16:44:45 Result Notes None recorded. 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 [address], [address], [facility] 6 13:37:41 Asthma 468588505 Active [address], [address], [facility] 6 13:37:41 Mass of body structur e 424960936 Completed 06/17/[address], [address], [facility] 6 13:37:41 Shoulder joint painful on movement 071499226 Completed 04/03/2019 Teresa Holland MD [address] [place] [address], [address], [facility] [employer] 9 10:34:03 Menopaus al symptom 69560035 Completed 06/17/2015 Felicity Dialloaag Anp [address] [place] [address], [address], [facility] [employer] 6 13:37:41 Acute sinusiti s 27189815 Completed 06/17/2015 Felicity Dialloaag Anp [address] [place] [address], [address], [facility] [employer] 6 13:37:41 Primary fibromya lgia syndrome 07152483 Completed 04/03/2019 Teresa Holland MD [address] [place] [address], [address], [facility] [employer] 9 10:33:42 Disorder of rotator cuff 975047292 Completed 04/03/2019 Teresa Holland MD [address] [place] [address], [address], [facility] [employer] 9 10:34:16 Electroc ardiogra m abnormal 250724085 Active Felicityterry Adame [address], [address], [facility] [employer] 6 14:32:49 Aortic valve regurgit ation 53570907 Active Felicityterry Dial[address], [address], [facility] [employer] 6 14:17:50 Atopic dermatit is 22268254 Completed 201604/03/2019 Teresa Holland MD [address] [place] [address], [address], [facility] [employer] 9 10:34:37 Biceps tendinit is 988506339 Active 2016 s/p right shoulder surgery 2015 Teresa Holland MD [address] [place] [address], [address], [facility] [employer] 9 10:36:26 Acquired trigger finger 9794980 Active 2016 Felicity Guzman [address] [place] [address], [address], [facility] [employer] 7 10:57:59 Insomnia 333199275 Completed 201604/03/2019 Teresa Holland MD [address] [place] [address], [address], [facility] [employer] 9 10:34:27 Difficul ty swallowi ng 816220665 Active 2016 Felicity Guzman [address] [place] [address], [address], [facility] [employer] 7 10:58:03 Problem Notes None recorded. Procedures Surgical History Date Name Laterality Status Provider Name and Address Organization Details Recorded Time 06/24/19 16 Orthopedic Surgery completed Missy Zacarias [facility] 07/24/2015 13:51:16 05/24/19 07 Colonoscopy completed Missy Zacarias [facility] 07/24/2015 13:51:32 05/24/19 02 Hysterectomy completed DHIRAJ Rivas [address] [place] [address], [address], [facility] [employer] 02/07/2014 11:37:39 08/22/18 60 Tonsillectomy completed DHIRAJ Rivas [address] [place] [address], [address], [facility] [employer] 12/07/2012 11:33:04 Imaging Results Imaging Date Name Status LastModified by Organization Details LastModified Time 09/27/2015 MAMMO, screening, digital, bilateral completed [facility] (Radiology) [address] [place] [address], [address], 09/30/2015 17:23:16 09/30/2016 MAMMO, screening, digital, bilateral completed [facility] (Radiology) [address] [place] [address], [address], 10/05/2016 14:21:16 10/05/2016 MAMMO, screening, digital, bilateral completed [facility] ([facility]) [address] [place] [address], [place], [address], 10/05/2016 18:08:22 10/27/2017 MAMMO, screening, digital, bilateral completed [facility] (Radiology) [address] [place] [address], [address], 10/30/2017 06:48:19 08/01/2018 US, echocardiogram completed BARCODE Inform ation not available 04/04/2019 12:54:21 11/20/2019 MAMMO, screening, digital, bilateral completed [facility] (Central Scheduling) [address] [place] [address], [address], 11/20/2019 16:08:59 2020 MAMMO, screening, bilateral completed [facility] (Radiology) [address] [place] [address], [address], 2020 20:59:56 06/19/2019 MAMMO, screening, bilateral completed [email or web address] Information not available 12/11/2020 16:44:45 Procedure Notes None recorded. Medical Equipment None Reported. Allergies No known drug allergies Medications Name Sig Start Date Stop Date Status Note LastModified by Organization Details LastModified Time Prescript ion - Prior Authoriza tion Request active PA for shingles vac. Not Available Not Available Not Available Augmentin 875 mg-125 mg tablet Take 1 tablet twice a day by oral route for 10 days. 02/14 completed Not Available Not Available Not Available ampicilli n 500 mg capsule Take 1 capsule every 6 hours by oral route. 11/05 completed no longer taking Not Available Not Available Not Available prednison e 20 mg tablet Take 2 tablets every day by oral route for 5 days. 04/23 completed Not Available Not Available Not Available Flonase 50 mcg/actua tion nasal spray,shira pension Inhale 1 spray every day by intranas al route. 2012 active Not Available Not Available Not Avai lable acetamino phen 300 mg-codein e 30 mg tablet 02/07 completed Not Available Not Available Not Available TobraDex 0.3 %-0.1 % eye ointment APPLY A SMALL AMOUNT INTO THE CONJUNCT IVAL SAC(S) IN AFFECTED EYE(S) BY OPHTHALM IC ROUTE 2 TIMES PER DAY 07/07 completed Not Available Not Available Not Available amoxicill in 500 mg tablet Take 2 tablets every 12 hours by oral route for 10 days. 07/16 completed Not Available Not Available Not Available oxycodone -acetamin ophen 5 mg-325 mg tablet active Not Available Not Available Not Available diazepam 2 mg tablet 11/05 completed no longer taking Not Available Not Available Not Available codeine 10 mg-guaife nesin 100 mg/5 mL oral liquid Take 10 mL every 4 hours by oral route as needed. 02/14 completed Not Available Not Available Not Available estradiol 0.5 mg tablet Take 1 tablet every day by oral route. 02/07 completed Not Available Not Available Not Available albuterol sulfate HFA 90 mcg/actua tion aerosol inhaler Inhale 2 puffs every 4 hours by inhalati on route as needed. active Not Available Not Available No t Available diazepam 5 mg tablet 02/07 completed Not Available Not Available Not Available nitrofura ntoin monohydra te/macroc rystals 100 mg capsule Take 1 capsule twice a day by oral route as directed for 5 days. 04/03 completed Not Available Not Available Not Available Zostavax (PF) 19,400 unit/0.65 mL subcutane ous suspensio n active Not Available Not Available Not Available Vitals Date Recorded Body height Heart rate Systolic blood pressure Diastolic blood pressure Provider Name and Address Organization Details Last Updated DateTime 07/24/2015 147.32 cm 68 /min 114 mm[Hg] 72 mm[Hg] Missy Hernandez in [facility] 07/24/2015 13:50:06 Date Recorded Body height Body mass index (BMI) Body weight Heart rate Respiratory rate Systolic blood pressure Diastolic blood pressure Provider Name and Address Organization Details Last Updated DateTime 7 146.05 cm 24.7 kg/m2 75196.7 1 g 68 /min 16 /min 120 mm[Hg] 80 mm[Hg] Kate Gusman LPN [facility] 7 10:16:41 Date Recorded Body height Body temperature Oxygen saturation Oxygen saturation in Arterial blood by Pulse oximetry Heart rate Systolic blood pressure Diastolic blood pressure Provider Name and Address Organization Details Last Updated DateTime 8 146.05 cm 99.2 [degF] 97 % 97 % 74 /min 118 mm[Hg] 84 mm[Hg] Batsheva Harrell [facility] 8 11:03:35 Date Recorded Body height Body mass index (BMI) Body weight Heart rate Systolic blood pressure Diastolic blood pressure Provider Name and Address Organization Details Last Updated DateTime 8 146.05 cm 24.7 kg/m2 04559.7 1 g 72 /min 116 mm[Hg] 80 mm[Hg] Lety Baron [facility] 8 09:29:36 Date Recorded Body weight Body mass index (BMI) Body height Heart rate Systolic blood pressure Diastolic blood pressure Provider Name and Address Organization Details Last Updated DateTime 9 12771.9 g 25.1 kg/m2 146.05 cm 64 /min 110 mm[Hg] 68 mm[Hg] Lety Baron [facility] 9 10:12:12 Social History Question Answer Notes LastModified by Organizat ion Details LastModified Time Tobacco Smoking Status Former Smoker 1 pdd x 5-8 years Quit 1978 Missy Tiwari, [address], [address], [facility] 02/07/2014 11:38:26 Do You Have An Advance Directive? Yes Form Given 03/06/15-F orm Brought In. Information not available 07/06/2012 What Is Your Level Of Alcohol Consumption? Occasional Rare Information not available 11/07/2014 How Many Years Have You Consumed Alcohol? 30 Information not available 11/07/2014 Animal Exposure? Yes Information not available 12/07/2012 What Is Your Level Of Caffeine Consumption? Moderate Information not available 07/06/2012 How Much Tobacco Do You Chew? None Information not available 07/06/2012 What Type Of Can Maker Do You Use? Relative Information not available 12/07/2012 Which Illicit Or Recreational Drugs Have You Used? 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 No Information not available 07/06/2012 Hard Of Hearing Or Deaf In One Or Both Ears? No Information not available 11/07/2014 What Is Your Home Situation? Mother Information not available 12/07/2012 Do You Use Insect Repellent Routinely? No Information not available 12/07/2012 Legally Blind In One Or Both Eyes? No Information not available 11/07/2014 Foreign Travel No Informatio n not available 12/07/2012 Do You Have A Family History Of Mental Health Or Substance Abuse? No [email or web address] Information not available 01/16/2015 Have You Ever Experienced Any Trauma Such As A Sexual Assault, Domestic Violence, Combat Experience, A Sudden Of A Loved One, Or Anything That Made You Excessively Afraid? No Information not available 12/07/2012 Language Sammarinese Information not available 12/07/2012 Country Of Origin [facility] Information not available 12/07/2012 Dietary Specific Information not available 12/07/2012 Marital Status Informatio n not available 07/06/2012 What Was The Date Of Your Most Recent Tobacco Screening? 02/14/2018 Information not available 12/14/2018 How Many Children Do You Have? 2 Information not available 07/06/2012 Obese No Information not available 11/07/2014 Overweight No Information not available 11/07/2014 What Is Your Parents' Marital Status? Information not available 12/07/2012 Performs Monthly Self-breast Exam? Yes Information not available 12/07/2012 Do You Use Your Seat Belt Or Car Seat Routinely? Yes Information not available 12/07/2012 Seat Belts Used Routinely Yes Information not available 07/06/2012 Number Of Sexual Partners 0 Information not available 12/07/2012 Smoke Alarm In Home Yes Information not available 07/06/2012 Do You Have Smoke And Carbon Monoxide Detectors In Your Home? Yes Information not available 12/07/2012 At What Age Did You Start Smoking Tobacco? 13 Information not available 03/06/2015 Are You Passively Exposed To Smoke? No Information not available 11/07/2014 How Much Tobacco Do You Smoke? No Information not available 11/05/2014 General Stress Level Medium Information not available 12/07/2012 Do You Use Sunscreen Routinely? Yes Information not available 07/06/2012 How Many Years Have You Smoked Tobacco? 10 Information not available 11/07/2014 Sex: Unknown Functional Status Question Answer Note LastModified by Organization D etails LastModified Time What is your exercise level? Moderate Information not available 12/07/2012 Mental Status None recorded. Family History Relationship Description Onset Age of this Age Resolved Age Notes LastModified by Organization Details LastModified Time Sister Problem 59 breast cancer at 47 [email or web address] Not available 07/24/2015 13:51:16 Brother Problem 52 well [email or web address] Not availabl e 07/24/2015 13:51:16 Brother Problem 60 pancre atic cancer [email or web address] Not available 07/24/2015 13:51:16 Sister Problem 64 well [email or web address] Not available 07/24/2015 13:51:16 Father Problem 84 CVA Not available 07/24/2015 13:51:16 Mother Problem 89 well [email or web address] Not available 07/24/2015 13:51:16 Medical History Condition Response Gout N Gynecologic problems N Muscle, Joint, or Bone Problems Y Arthritis N Infertility N Cancer (of any kind) N Defects or Inherited Diseases N Stroke N Headache N Asthma, COPD, Breathing or Lung Disorder Y Cardiac History, Heart Murmur, [place] N Skin Problems N Food or Environmental Allergies N Bleeding Disorder N Neuropathy N Anxiety/Depression N Hernia N Developmental or Behavioral Disorders N Blood Pressure High or Low N Breast Problem N Dizziness or Fainting N Anemia, Blood Clot, or Bleeding Disorder N Seizures or Convulsions N Eye or Vision Problems N Thyroid Problems N GI Problems N Diabetes N Bladder,Kidney Problems or Recurrent UTI 's N Prostate issues, ED or Sexual Problem N Insomnia N Cholesterol High or Low N Chronic Pain N Ear Nose & Throat (ENT) Problems N Osteoporosis N Liver Disease or Hepatitis N Gynecological History Statement/Question Response If Post Menopausal, Age at Menopause [age] Obstetrics History GPAL:G 2 P 0 0 0 2 Type Value Living 2 Total 2 Immunizations Vaccine Type Date Status Note Provider Nam e and Address Organization Details Recorded Time Td (adult), 2 Lf tetanus toxoid, preservative free, adsorbed 7 completed Not Available [facility] 06/24/2019 02:16:57 Td (adult), 2 Lf tetanus toxoid, preservative free, adsorbed 3 completed Not Available [facility] 06/24/2019 02:16:57 Tdap 2 completed Not Available [facility] 06/24/2019 02:16:57 Past Encounters Encounter ID Performer Location Encounter Start Date Encounter Closed Date Diagnosis/Indication Diagnosis SNOMED-CT Code Diagnosis ICD10 Code Diagnosis Note [id number] Carina Benitez CMA [address] [address] 07/06/2012 09:47:42 07/06/2012 10:34:14 [id number] DHIRAJ Rivas [address] [address] 12/07/2012 10:39:33 12/07/2012 12:13:16 [id number] Kate Gusman LPN [address] [address] 02/07/2014 10:39:26 02/07/2014 10:53:[id number] [address] 02/07/2014 11:05:26 02/07/2014 11:58:00 Adult health examination [id number] [address] [address] 04/13/2014 11:17:25 04/13/2014 12:18:25 Multiple joint pain 80846795 [id number] Kate Gusman LPN [address] [address] 04/18/2014 08:51:25 04/18/2014 09:42:28 Cervical radiculopathy 05040388 [id number] [address] [address] 11/07/2014 08:57:07 11/07/2014 10:20:16 Cervical radiculopathy 29746401 Scoliosis deformity of spine 290751185 Asthma 590400137 Adult heal th examination 792665763 [id number] Missy Zacarias CMA [address] [address] 01/16/2015 09:24:09 01/16/2015 10:11:54 Mass of body structure 987771116 Right lateral superior knee [id number] [address] [address] 03/06/2015 12:19:16 03/06/2015 12:56:20 Shoulder joint painful on movement 442410793 M25.519 [id number] Felicity Adame Anp [address] [address] 06/17/2015 12:50:30 06/17/2015 13:58:38 Disorder of rotator cuff 806939829 M75.81 Electrocar diogram abnormal 876379638 R94.31 [id number] Juju Dang [address] [address] 07/24/2015 13:40:32 07/24/2015 14:22:46 Aortic valve regurgitation 30159684 I35.1 [id number] Felicity Adame Anp [address] [address] 11/05/2016 09:50:55 11/05/2016 11:06:32 Adult health examination 354122833 Z00.00 Atopic dermatitis 166260 01 L20.9 of eyelids Neck pain 38738793 M54.2 right. S/P rotator cuff surgery Biceps tendinitis 231414 007 M75.21 Right. S/p surgery with Dr Ilana neal finger 3568231 M65.30 Insomnia 003133994 G47.0 0 Difficulty swallowing 28 2825053 R13.10 Screening for malignant neoplasm of colon 215089956 Z12.11 Scoliosis deformity of spine 243943437 M41.9 Has been worked up Aortic edi ve regurgitation 59686389 I35.[address] Yuval lemon [id number] Felicity Guzman [address] [address] 07/07/2017 10:48:38 07/07/2017 11:46:44 Pneumonia 030156959 J18.9 [id number] Felicity Guzman [address] [address] 02/14/2018 09:20:09 02/14/2018 10:21:42 Adult health examination 031421738 Z00.00 Aortic edi ve regurgitation 55755908 I35.[address] Yuval lemon 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 M65.30 Difficulty swallowing 28 0747193 R13.10 declines referral Screening for malignant neoplasm of colon 377130528 Z12.11 [id number] Teresa Holland MD [address] [address] 04/03/2019 09:50:51 04/03/2019 10:55:10 Adult health examination 404796468 Z00.00 does yoga and weights , will get cologuard / mammo utd, repeat bone density Screening for malignant neoplasm of colon 499201009 Z12.11 Z12.12 Menopause present 712432 006 N95.1 Aortic edi ve regurgitation 92453639 I35.1 gets echo every few years Asthma 922892514 J45.90 9 very rarely use inhaler Health Concerns Section Related Observation LastModified by Organization Detai ls LastModified Time None Recorded Concern Status LastModified by Organization Details LastModified Time None Recorded Advance Directives Directive Y: form given 03/06/15-Form brought in. Payers Encounter Date Sequence Insurance Name Policy Number Policy Parmar Covered Member ID Parmar Member ID Guarantor Name 07/24/2015 2 [employer] Ese Oviedo [id number] Ese [place]o 07/24/2015 1 [facility] (MEDICAID HMO) Ese Oviedo [id number] Ese [place]o 11/05/2016 1 [facility] (MEDICAID HMO) Ese [place]o [id number] Ese [place]o 07/07/2017 1 [facility] TYPE I (HMO) Ese Leo Preet [id number] Ese Felipa Preet 04/03/2019 1 [facility] [id number] Ese [place]o [id number] Ese [place] Notes Date Note Type Note Provider Name and Address Organization Details Recorded Time 07/24/2015 text/html HPI Patient is here today for a follow up. She had an irregular ECG for her preop exam and she was sent for an echo. The echocardiogram showed mild to moderate aortic regurgitation. She has had rotator cuff surgery on her right shoulder and is working in PT. She says her ROM has been good and she has no pain.? Felicity Guzman [address] [place] [address], [phone], [employer] 07/24/2015 14:18:22 11/05/2016 text/html Patient is here for her physical.She has had a ALINA.She had a colonoscopy in 2006 and is due.She had a Td in 2011.Negative mammo last month.She sees Dr Thomas Green and saw her in August. She says she had labs done at that time, but we do not yet have them.She had rotator cuff surgery on the right with Dr Preciado in 2015. She says she is still having pain in her neck. She uses Arnica on this.Also c/o left middle finger contraction. Felicity Guzman [address] [place] [address], [phone], [employer] 11/05/2016 10:59:49 07/07/2017 text/html Patient is here for a 8 day history of sinus pressure, chest pressure, cough and low-grade fever and SOB. She denies myalgias.She has been drinking soup and tea. Felicity Guzman [address] [place] [address], [phone], [facility] [employer] 07/07/2017 11:45:45 02/14/2018 text/html Patient is here for her physical. She has been seeing Dr Hoyt for left middle finger contracture and has been getting injections.Colonosc opy in 2006, but she declines a new one. I ordered an Ifob last year, but she did not return it.She sees Dr Green for aortic valve reguritation.Neg mammo in October. She is due for an US in Apr.She has had a total hysterectomy.Tdap in 2011.Declines flu vaccine. Felicity Guzman [address] [place], [phone], [employer] 02/21/2018 22:29:33 04/03/2019 text/html here for pe, wor ks at [employer] , has back problems and needs to wear sneakers, lost to pancreatic cancer, has grandchildren and helps with elderly mom in care home, asthma under control Teresa Holland MD [address] [place], [address], [employer] 04/03/2019 10:53:03 OBGyn Episode No OBEpisode recorded.
[2024-06-28 10:23] VITALS: BP 152/94; PULSE 64; RESP 16; O2SAT 98
== END 2024-06-28 11:04 | disposition home or self-care (01) ==
PROVIDERS: Visit Provider Internal Medicine
DX: M96.1 Postlaminectomy syndrome, not elsewhere classified (principal); M41.9 Scoliosis, unspecified; M43.16 Spondylolisthesis, lumbar region; M47.816 Spondylosis without myelopathy or radiculopathy, lumbar region; M62.85 Dysfunction of the multifidus muscles, lumbar region
CPT/HCPCS: 99204

== ENCOUNTER → 2024-06-28 09:44 | Outpatient (BNVA) | payer MEDICARE, SELFPAY | PROVIDERS: Visit Provider Internal Medicine | DX: M96.1 Postlaminectomy syndrome, not elsewhere classified (principal); M47.816 Spondylosis without myelopathy or radiculopathy, lumbar region; M41.9 Scoliosis, unspecified; M62.85 Dysfunction of the multifidus muscles, lumbar region | CPT/HCPCS: 99202 ==

== ENCOUNTER 2024-07-27 06:08 | Outpatient (REF) | payer MEDICARE, SELFPAY ==
--- NOTE | ~2024-07-27 | FL_ITS ---
EXAMINATION: FL GUIDANCE ONLY HISTORY: M47.816 - Spondylosis without myelopathy or radiculopathy, lumbar region COMPARISON: None available. TECHNIQUE: Fluoroscopy time: 0.3 minutes. Cumulative Dose: 7.30 mGy. DAP: 0.0549 mGym2 Images: 3. FINDINGS: Images demonstrate multiple leads in the lumbar region. FL/FL guidance in treatment room IMPRESSION: Fluoroscopy during procedure. Please see procedure report for additional information. Electronically signed by: Linwood Caal MD 07/28/2024 03:35 PM RUTHANN
--- OUTSIDE RECORDS SUMMARY | 2024-07-27 06:13 | XMS_ITS | Data Portability ---
Author Organization [place] - [facility], [facility] Securities Underwriter Address [address] [place] [address] Care Team Providers Care Airworthiness Safety Inspector Name Role Phone TERESA HOLLAND Primary Care Provider Unavailab le Assessment No assessment recorded. Plan of Treatment Reminders Order Date Submit Date Provider Last Modified By Organization Details Last Modified Time Details Appointments None recorded. Lab colon cancer screening, stool - Certificat Ashlee am a licensed medical profession al authorized to order Cologuard. This test is medically necessary and the patient is eligible to use Cologuard. I will maintain the privacy of test results and related informatio n as required by HIPAA. I authorize [facility] to obtain reimbursem ent for Cologuard and to directly contact and collect a second sample from the patient as appropriat e.ICD-10 Code: Z12.11 2018 [facility] (Cologuard Orders Only), [address], [address], [place], [address], 0 07:23:21 CBC 2018 [facility] (Lab), [address], [place], [address], 9 15:59:34 CMP, serum or plasma 2018 [facility] (Lab), [address], [place], [address], 9 16:15:08 cholestero l, total, serum 2018 [facility] (Lab), [address], [place], [address], 9 16:15:09 HDL cholestero l, serum 2018 019 [facility] (Lab), [address], [place], [address], 9 16:15:10 glycohemog lobin, total, blood 2018 019 [facility] (Lab), [address] [facility] [address], [place], [address], 9 17:36:34 TSH, serum or plasma 2018 019 [facility] (Lab), [address], [place], [address], 9 16:15:11 fecal occult blood, immunoassa y, stool 2017 018 [facility] (Lab), [address] [facility] [address], [place], [address], 8 15:07:17 CMP, serum or plasma 2017 018 [facility] (Lab), [address], [place], [address], 8 17:18:55 CBC 2017 018 [facility] (Lab), [address], [place], [address], 8 16:33:54 lipid panel, serum 2017 018 [facility] (Lab), [address], [place], [address], 8 17:18:57 fecal occult blood, immunoassa y, stool 2016 017 [facility] (Lab), [address], [place], [address], 8 10:50:10 CBC 2016 017 [facility] (Lab), [address], [place], [address], 7 16:57:33 CMP, serum or plasma 2016 017 [facility] (Lab), 11 [facility] [address], [place], [address], 7 16:31:48 Referral orthopedic referral - continued right shoulder pain 2016 017 [email or web address] Not available 7 10:21:50 orthopedic referral - Left middle finger 2016 017 [email or web address] Not available 7 10:22:[address] referral - aortic valve regurg noted on echo, abnormal ECG 2015 016 [facility] (Cardiology), [address] [place], [address], 6 13:42:57 Procedures None recorded. Surgeries None recorded. Imaging MAMMO, screening, digital, bilateral 2018 019 [facility] (Central Scheduling), [address] [place] [address], [address], 0 11:45:15 bone density 2018 019 [facility] (Central Scheduling), [address] [place] [address], [address], 0 08:18:53 Medication Orders ProAir HFA 90 mcg/actuat ion aerosol inhaler 2018 019 [facility], [address] [facility] [place], [address], 9 10:48:28 Augmentin 875 mg-125 mg tablet 2017 018 [facility], [address] [facility], [place], [address], 8 09:28:25 codeine 10 mg-guaifen esin 100 mg/5 mL oral liquid 2017 018 [facility], [address] [place], [address], 8 09:28:27 ProAir HFA 90 mcg/actuat ion aerosol inhaler 2017 018 [facility], [address] [place], [address], 8 09:28:29 TobraDex 0.3 %-0.1 % eye ointment 2016 017 [facility], [address] [place], [address], 8 11:03:55 Patient TargetsNo targets recorded. Patient Instructions Encounter Date Encounter Id Patient Instructions Last Modified By Organization Details Last Modified Time 07/24/2015 [id number] Will send to cardiology.? ? ? Will f/u as needed. [email or web address] Not available 07/24/2015 14:17:50 11/05/2016 [id number] Declines colonoscopy referral at this time. Will do ifob. Declines any help with insomnia or shoulder pain. Will send back to ortho to have shoulder reassessed and for trigger finger. F/u as needed. [email or web address] Not available 11/05/2016 10:49:31 07/07/2017 [id number] Will return to office if symptoms do not improve with treatment. [email or web address] Not available 07/07/2017 11:45:19 02/14/2018 [id number] Breast US in Apr , will get ifob. she declines flu vacc. Will call patient when lab tests are resulted. [email or web address] Not available 02/21/2018 22:29:09 04/03/2019 [id number] controlling your asthma: care instructions [email or web address] Not available 04/03/2019 10:48:00 learning about asthma [email or web address] Not available 04/03/2019 10:48:00 aortic valve regurgitation: care instructions [email or web address] Not available 04/03/2019 10:36:46 Reason for Referral Order Taker Referral for Ao rtic valve regurgitation aortic valve regurg noted on echo, abnormal ECG Referring Physician: Felicity Adame [facility], Encounter Date: 07/24/2015 Orthopedic Referral for Julio Cesar ps tendinitis continued right shoulder pain Referring Physician: Felicity Adame [facility], Encounter Date: 11/05/2016 Orthopedic Referral for Acqu ired trigger finger Left middle finger Referring Physician: Felicity Adame [facility], Encounter Date: 11/05/2016 Results Created Date [...] if clini jcarlos indic ated. Test Type: Cutler site algor ithmi c bety sis of [...] years or older , who are at [facility] for CRC. Colog uard has been [...] t shoul d be advis ed to nle nue parti cipat ing in a color [...] , singl e point in time) of [facility] sk adult s aged 50-84 . [...] ution s can be found at [email or web address] m. Rx only. Not Available [facility] (Cologuard Orders Only) [address], [place], [address], 04/02/2020 06:09:37 11/06/19 17 11/05/2016 CMP, serum or plasm a glucose 102 mg/dL 70-109 normal Not Available [address] [place] [address], [address], 11/05/2016 16:31:48 11/06/19 17 11/05/2016 CMP, serum or plasm a BUN 16 mg/dL 6-23 normal Not Available [address] [place] [address], [address], 11/05/2016 16:31:48 11/06/19 17 11/05/2016 CMP, serum or plasm a creatinine 0.87 mg/dL 0.0-1. 3 normal Not Available [address] [place] [address], [address], 11/05/2016 16:31:48 11/06/19 17 11/05/2016 CMP, serum [...] G5 (kidn ey failu re). Not Available [address] [place] [address], [address], 11/05/2016 16:31:48 11/06/19 17 11/05/2016 CMP, serum or plasm a calcium 9.1 mg/dL 8.3-9. 9 normal Effec tive 5: Pleas e note the refer ence range for this test has perla ed. Not Available [address] [place] [address], [address], 11/05/2016 16:31:48 11/06/19 17 11/05/2016 CMP, serum or plasm a total protein 6.8 g/dL 5.9-7. 9 normal Effec tive 5/5/1 5: Pleas e note the refer ence range for this test has perla ed. Exact pedia tric range s are not estab lishe d, but tend to be lower than adult range s. Not Available [address] [place] [address] Draw[address] [place] [address], [address], 11/05/2016 16:31:48 11/06/19 17 11/05/2016 CMP, serum or plasm a albumin 4.1 g/dL 2.9-4. 7 normal Effec tive 015: The Album in metho d perla ed from a BCG to a BCP metho d. Resul ts will be appro ximat radha 0.4 g/dL lower than the old metho d. Laney nair note the perla e in the refer ence range . Not Available [address] [place] [address], [address], 11/05/2016 16:31:48 11/06/19 17 11/05/2016 CMP, serum or plasm a alkaline phosphatase 48 IU/L 18-210 normal Not Available [address] [place] [address], [address], 11/05/2016 16:31:48 11/06/19 17 11/05/2016 CMP, serum or plasm a SGOT (AST) 19 IU/L 15-37 normal Effec tive 5: Laney nair note the refer ence range for this test has perla ed. Not Available [address] [place] [address], [address], 11/05/2016 16:31:48 11/06/19 17 11/05/2016 CMP, serum or plasm a bilirubin total 0.3 mg/dL 0.2-1. 3 normal Not Available [address] [place] [address], [address], 11/05/2016 16:31:48 11/06/19 17 11/05/2016 CMP, serum or plasm a SGPT (ALT) 31 IU/L 13-56 normal Not Available [address] [place] [address] Draw[address] [place] [address], [address], 11/05/2016 16:31:48 11/06/19 17 11/05/2016 CMP, serum or plasm a sodium 133 mEq/L 135-14 5 low Not Available [address] [place] [address], [address], 11/05/2016 16:31:48 11/06/19 17 11/05/2016 CMP, serum or plasm a potassium 4.3 mEq/L 3.5-5. 1 normal Not Available [address] [place] [address], [address], 11/05/2016 16:31:48 11/06/19 17 11/05/2016 CMP, serum or plasm a chloride 97 mEq/L 98-112 low Not Available [address] [place] [address], [address], 11/05/2016 16:31:48 11/06/19 17 11/05/2016 CMP, serum or plasm a CO2 31 mEq/L 20-32 normal Not Available [address] [place] [address], [address], 11/05/2016 16:31:48 11/06/19 17 11/05/2016 CMP, serum or plasm a anion gap 5 mEq/L 5-15 normal Not Available [address] [place] [address], [address], 11/05/2016 16:31:48 11/06/19 17 11/05/2016 CBC WBC count 4.9 K/mm3 4.0-11 .0 normal Not Available [address] [place] [address], [address], 11/05/2016 16:57:33 11/06/19 17 11/05/2016 CBC red blood cell count 4.17 M/uL 4.00-5 .20 normal Not Available [address] [place] [address], [address], 11/05/2016 16:57:33 11/06/19 17 11/05/2016 CBC hemoglobin 13.2 gm/dL 12.0-1 6.0 normal Not Available [address] [place] [address], [place], [address], 11/05/2016 16:57:33 11/06/19 17 11/05/2016 CBC hematocrit 40.0 % 36.0-4 6.0 normal Not Available [address] [place] [address], [address], 11/05/2016 16:57:33 11/06/19 17 11/05/2016 CBC MCV 95.8 fL 86-99 normal Not Available [address] [place] [address], [address], 11/05/2016 16:57:33 11/06/19 17 11/05/2016 CBC RDW 12.2 % 11.5-1 6.0 normal Not Available [address] [place] [address], [address], 11/05/2016 16:57:33 11/06/19 17 11/05/2016 CBC plt count 251 K/uL 140-44 0 normal Not Available [address] [place] [address], [address], 11/05/2016 16:57:33 11/06/19 17 11/05/2016 CBC ne# 3.2 K/uL 1.5-7. 5 normal Not Available [address] [place] [address], [address], 11/05/2016 16:57:33 11/06/19 17 11/05/2016 CBC ly# 1.2 K/uL 1.0-4. 5 normal Not Available [address] [place] [address], [address], 11/05/2016 16:57:33 11/06/19 17 11/05/2016 CBC MO# 0.2 K/uL 0.0-0. 8 normal Not Available [address] [place] [address], [address], 11/05/2016 16:57:33 11/06/19 17 11/05/2016 CBC eo# 0.3 K/uL 0.0-0. 4 normal Not Available [address] [place] [address], [address], 11/05/2016 16:57:33 11/06/19 17 11/05/2016 CBC ba# 0.0 K/uL 0.0-0. 2 normal Not Available [address] [place] [address], [address], 11/05/2016 16:57:33 11/06/19 17 11/05/2016 CBC ne% 64.5 % normal Not Available [address] [place] [address], [address], 11/05/2016 16:57:33 11/06/19 17 11/05/2016 CBC ly% 25.0 % normal Not Available [address] [place] [address], [address], 11/05/2016 16:57:33 11/06/19 17 11/05/2016 CBC MO% 4.9 % normal Not Available [address] [place] [address], [address], 11/05/2016 16:57:33 11/06/19 17 11/05/2016 CBC eo% 5.2 % normal Not Available [address] [place] [address], [address], 11/05/2016 16:57:33 11/06/19 17 11/05/2016 CBC ba% 0.5 % normal Not Available [address] [place] [address], [address], 11/05/2016 16:57:33 12/08/19 17 12/07/2016 sodiu m, urine sodium, random urine 21 mEq/L normal Not Available [address] [place] [address], [address], 12/07/2016 14:17:24 12/08/19 17 12/07/2016 BMP, serum or plasm a glucose 83 mg/dL 70-109 normal Not Available [address] [place] [address], [address], 12/07/2016 14:33:32 12/08/19 17 12/07/2016 BMP, serum or plasm a BUN 19 mg/dL 6-23 normal Not Available [address] [place] [address], [address], 12/07/2016 14:33:32 12/08/19 17 12/07/2016 BMP, serum or plasm a creatinine 1.17 mg/dL 0.0-1. 3 normal Not Available [address] [place] [address], [address], 12/07/2016 14:33:32 12/08/19 17 12/07/2016 BMP, serum [...] G5 (kidn ey failu re). Not Available [address] [place] [address], [address], 12/07/2016 14:33:32 12/08/19 17 12/07/2016 BMP, serum or plasm a calcium 8.9 mg/dL 8.3-9. 9 normal Effec tive 5: Pleas e note the refer ence range for this test has perla ed. Not Available [address] [place] [address] [address] [place] [address], [address], 12/07/2016 14:33:32 12/08/19 17 12/07/2016 BMP, serum or plasm a sodium 135 mEq/L 135-14 5 normal Not Available [address] [place] [address], [address], 12/07/2016 14:33:32 12/08/19 17 12/07/2016 BMP, serum or plasm a potassium 4.4 mEq/L 3.5-5. 1 normal Not Available [address] [place] [address], [address]23, 12/07/2016 14:33:32 12/08/19 17 12/07/2016 BMP, serum or plasm a chloride 97 mEq/L 98-112 low Not Available [address] [place] [address], [address], 12/07/2016 14:33:32 12/08/1912/07/2016 BMP, serum or plasm a CO2 30 mEq/L 20-32 normal Not Available [address] [place] [address], 24[address], 12/07/2016 14:33:32 12/08/1912/07/2016 BMP, serum or plasm a anion gap 8 mEq/L 5-15 normal Not Available [address] [place] [address], [address], 12/07/2016 14:33:32 12/08/1912/07/2016 TSH, serum or plasm a thyroid stimulating hormone 2.02 uIU/m L 0.36-3 .74 normal Effec tive 5: Laney nair note the refer ence range for this test has perla ed. Not Available [address] [place] [address], [address], 12/07/2016 14:33:33 02/15/20 18 02/14/2018 CBC WBC count 5.0 K/mm3 4.0-11 .0 normal Not Available [address] [place] [address], [address], 02/14/2018 16:33:54 02/15/20 18 02/14/2018 CBC red blood cell count 4.24 M/uL 4.00-5 .50 normal Not Available [address] [place] [address], [address], 02/14/2018 16:33:54 02/15/20 18 02/14/2018 CBC hemoglobin 13.6 gm/dL 12.0-1 6.0 normal Not Available [address] [place] [address], [address], 02/14/2018 16:33:54 02/15/20 18 02/14/2018 CBC hematocrit 40.0 % 37.0-4 7.0 normal Not Available [address] [place] [address], [address], 02/14/2018 16:33:54 02/15/20 18 02/14/2018 CBC MCV 94.3 fL 80.0-1 00.0 normal Not Available [address] [place] [address], [address]99, 02/14/2018 16:33:54 02/15/20 18 02/14/2018 CBC RDW 12.1 % 11.5-1 6.0 normal Not Available [address] [place] [address], 85[address], 02/14/2018 16:33:54 02/15/20 18 02/14/2018 CBC plt count 249 K/uL 140-40 0 normal Not Available [address] [place] [address], [address], 02/14/2018 16:33:54 02/15/20 18 02/14/2018 CBC NRBC% 0.0 % 0.0-0. 7 normal Not Available [address] [place] [address], [address], 02/14/2018 16:33:54 02/15/20 18 02/14/2018 CBC ne# 2.74 K/uL 1.50-7 .50 normal Not Available [address] [place] [address] [address] [place] [address], [address], 02/14/2018 16:33:54 02/15/20 18 02/14/2018 CBC ly# 1.28 K/uL 1.00-4 .50 normal Not Available [address] [place] [address] [address] [place] [address], [address], 02/14/2018 16:33:54 02/15/20 18 02/14/2018 CBC MO# 0.41 K/uL 0.00-0 .80 normal Not Available [address] [place] [address] [address] [place] [address], [address], 02/14/2018 16:33:54 02/15/20 18 02/14/2018 CBC eo# 0.51 K/uL 0.00-0 .40 high Not Available [address] [place] [address] [address] [place] [address], 284[address], 02/14/2018 16:33:54 02/15/20 18 02/14/2018 CBC ba# 0.04 K/uL 0.00-0 .20 normal Not Available [address] [place] [address] [address] [place] [address], 140[address], 02/14/2018 16:33:54 02/15/20 18 02/14/2018 CBC Ig# 0.01 K/uL 0.00-0 .10 normal Not Available [address] [place] [address] [address] [place] [address], 84607, 02/14/2018 16:33:54 02/15/20 18 02/14/2018 CBC ne% 54.9 % normal Not Available [address] [place] [address] [address] [place] [address], 06676, 02/14/2018 16:33:54 02/15/20 18 02/14/2018 CBC ly% 25.7 % normal Not Available [address] [place] [address] Draw[address] [place] [address], 7[address], 02/14/2018 16:33:54 02/15/20 18 02/14/2018 CBC MO% 8.2 % normal Not Available [address] [place] [address], [address], 02/14/2018 16:33:54 02/15/20 18 02/14/2018 CBC eo% 10.2 % normal Not Available [address] [place] [address], 58[address], 02/14/2018 16:33:54 02/15/20 18 02/14/2018 CBC ba% 0.8 % normal Not Available [address] [place] [address], 34870, 02/14/2018 16:33:54 02/15/20 18 02/14/2018 CBC Ig% 0.2 % 0.0-1. 4 normal Not Available [address] [place] [address], 22757, 02/14/2018 16:33:54 02/15/20 18 02/14/2018 CMP, serum or plasm a glucose 91 mg/dL 70-100 normal Not Available [address] [place] [address], 77760, 02/14/2018 17:18:55 02/15/20 18 02/14/2018 CMP, serum or plasm a BUN 15 mg/dL 6-23 normal Not Available [address] [place] [address], 746[address], 02/14/2018 17:18:55 02/15/20 18 02/14/2018 CMP, serum or plasm a creatinine 0.89 mg/dL 0.0-1. 3 normal Not Available [address] [place] [address], 33599, 02/14/2018 17:18:55 02/15/20 18 02/14/2018 CMP, serum [...] G5 (kidn ey failu re). Not Available [address] [place] [address], [address], 02/14/2018 17:18:55 02/15/20 18 02/14/2018 CMP, serum or plasm a calcium 9.7 mg/dL 8.3-9. 9 normal Not Available [address] [place] [address], [address], 02/14/2018 17:18:55 02/15/2002/14/2018 CMP, serum or plasm a total protein 7.0 g/dL 5.9-7. 9 normal Exact pedia tric range s are not estab lishe d, but tend to be lower than adult range s. Not Available [address] [place] [address], 29226, 02/14/2018 17:18:55 02/15/20 18 02/14/2018 CMP, serum or plasm a albumin 4.5 g/dL 2.9-4. 7 normal Not Available [address] [place] [address], 74685, 02/14/2018 17:18:55 02/15/20 18 02/14/2018 CMP, serum or plasm a alkaline phosphatase 50 IU/L 18-210 normal Not Available [address] [place] [address], 26525, 02/14/2018 17:18:55 02/15/20 18 02/14/2018 CMP, serum or plasm a SGOT (AST) 30 IU/L 15-37 normal Not Available [address] [place] [address], [address]148, 02/14/2018 17:18:55 02/15/20 18 02/14/2018 CMP, serum or plasm a bilirubin total 0.4 mg/dL 0.2-1. 3 normal Not Available [address] [place] [address], 41961, 02/14/2018 17:18:55 02/15/20 18 02/14/2018 CMP, serum or plasm a SGPT (ALT) 33 IU/L 13-56 normal Not Available [address] [place] [address], 33876, 02/14/2018 17:18:55 02/15/20 18 02/14/2018 CMP, serum or plasm a sodium 138 mEq/L 135-14 5 normal Not Available [address] [place] [address], 97070, 02/14/2018 17:18:55 02/15/20 18 02/14/2018 CMP, serum or plasm a potassium 4.9 mEq/L 3.5-5. 1 normal Not Available [address] [place] [address], 83454, 02/14/2018 17:18:55 02/15/20 18 02/14/2018 CMP, serum or plasm a chloride 100 mEq/L 98-112 normal Not Available [address] [place] [address], 24668, 02/14/2018 17:18:55 02/15/20 18 02/14/2018 CMP, serum or plasm a CO2 30 mEq/L 20-32 normal Not Available [address] [place] [address], 21512, 02/14/2018 17:18:55 02/15/20 18 02/14/2018 CMP, serum or plasm a anion gap 8 mEq/L 5-15 normal Not Available [address] [place] [address] Draw[address] [place] [address], 90648, 02/14/2018 17:18:55 02/15/20 18 02/14/2018 lipid panel , serum cholesterol 228 mg/dL normal BORDE RLINE HIGH <200 Rodolfo able 200-2 39 Borde rline High >=240 High Not Available [address] [place] [address], 12046, 02/14/2018 17:18:57 02/15/20 18 02/14/2018 lipid panel , serum triglyceride 76 mg/dL normal YOLI L <=150 Yoli l 150-1 99 Borde rline High 200-4 99 High >=500 Very High Not Available [address] [place] [address], 28877, 02/14/2018 17:18:57 02/15/20 18 02/14/2018 lipid panel , serum HDL 88 mg/dL normal OPTIM AL <40 Low >=60 Optim al Not Available [address] [place] [address], 21386, 02/14/2018 17:18:57 02/15/20 18 02/14/2018 lipid panel , serum calculated LDL 125 mg/dL normal NEAR OPTIM AL <100 Optim al 100-1 29 Near optim al 130-1 59 Borde rline High 160-1 89 High >=190 Very High The above class ifica tions are based on the recom menda tions of the NCEP Exper t Panel , (ATP III, 2001) . Not Available [address] [place] [address], [address], 02/14/2018 17:18:57 02/22/20 18 02/21/2018 fecal occul t blood , immun oassa y, stool immuno fecal occult blood NEGATI VE negati ve normal Not Available [address] [place] [address], 35360, 02/21/2018 15:07:17 04/03/2004/03/2019 CBC WBC count 6.1 K/mm3 4.0-11 .0 normal Not Available [address] [place] [address], 123[address], 04/03/2019 15:59:34 04/03/2004/03/2019 CBC red blood cell count 4.10 M/uL 4.00-5 .50 normal Not Available [address] [place] [address], 87432, 04/03/2019 15:59:34 04/03/2004/03/2019 CBC hemoglobin 13.0 gm/dL 12.0-1 6.0 normal Not Available [address] [place] [address], 39005, 04/03/2019 15:59:34 04/03/2004/03/2019 CBC hematocrit 39.7 % 37.0-4 7.0 normal Not Available [address] [place] [address], 10514, 04/03/2019 15:59:34 04/03/2004/03/2019 CBC MCV 96.8 fL 80.0-1 00.0 normal Not Available [address] [place] [address], 81499, 04/03/2019 15:59:34 04/03/2004/03/2019 CBC RDW 11.9 % 11.5-1 6.0 normal Not Available [address] [place] [address], 74740, 04/03/2019 15:59:34 04/03/2004/03/2019 CBC plt count 244 K/uL 140-40 0 normal Not Available [address] [place] [address], 69132, 04/03/2019 15:59:34 04/03/2004/03/2019 CBC mean platelet volume 10.5 fL 8.6-12 .5 normal Not Available [address] [place] [address], 40418, 04/03/2019 15:59:34 04/03/20 19 04/03/2019 CBC NRBC% 0.0 % 0.0-0. 7 normal Not Available [address] [place] [address] Draw[address] [place] [address], 05719, 04/03/2019 15:59:34 04/03/20 19 04/03/2019 CBC ne# 3.89 K/uL 1.50-7 .50 normal Not Available [address] [place] [address], 55014, 04/03/2019 15:59:34 04/03/20 19 04/03/2019 CBC ly# 1.41 K/uL 1.00-4 .50 normal Not Available [address] [place] [address], 65428, 04/03/2019 15:59:34 04/03/20 19 04/03/2019 CBC MO# 0.41 K/uL 0.00-0 .80 normal Not Available [address] [place] [address], 58154, 04/03/2019 15:59:34 04/03/20 19 04/03/2019 CBC eo# 0.32 K/uL 0.00-0 .40 normal Not Available [address] [place] [address], 48893, 04/03/2019 15:59:34 04/03/20 19 04/03/2019 CBC ba# 0.05 K/uL 0.00-0 .20 normal Not Available [address] [place] [address], 48766, 04/03/2019 15:59:34 04/03/20 19 04/03/2019 CBC Ig# 0.01 K/uL 0.00-0 .10 normal Not Available [address] [place] [address], 60318, 04/03/2019 15:59:34 04/03/20 19 04/03/2019 CBC ne% 63.8 % normal Not Available [address] [place] [address], 80788, 04/03/2019 15:59:34 04/03/20 19 04/03/2019 CBC ly% 23.2 % normal Not Available [address] [place] [address], 47129, 04/03/2019 15:59:34 04/03/20 19 04/03/2019 CBC MO% 6.7 % normal Not Available [address] [place] [address], 66023, 04/03/2019 15:59:34 04/03/2004/03/2019 CBC eo% 5.3 % normal Not Available [address] [place] [address], 60108, 04/03/2019 15:59:34 04/03/2004/03/2019 CBC ba% 0.8 % normal Not Available [address] [place] [address], 09239, 04/03/2019 15:59:34 04/03/2004/03/2019 CBC Ig% 0.2 % 0.0-1. 4 normal Not Available [address] [place] [address], 53644, 04/03/2019 15:59:34 04/03/2004/03/2019 CMP, serum or plasm a glucose 91 mg/dL 70-100 normal Not Available [address] [place] [address], 29767, 04/03/2019 16:15:08 04/03/2004/03/2019 CMP, serum or plasm a BUN 24 mg/dL 6-23 high Not Available [address] [place] [address], 52831, 04/03/2019 16:15:08 04/03/2004/03/2019 CMP, serum or plasm a creatinine 0.82 mg/dL 0.0-1. 3 normal Not Available [address] [place] [address], [address], 04/03/2019 16:15:08 04/03/20 19 04/03/2019 CMP, serum [...] G5 (kidn ey failu re). Not Available [address] [place] [address], [address], 04/03/2019 16:15:08 04/03/20 19 04/03/2019 CMP, serum or plasm a calcium 9.7 mg/dL 8.1-10 .4 normal Not Available [address] [place] [address], [address], 04/03/2019 16:15:08 04/03/20 19 04/03/2019 CMP, serum or plasm a total protein 6.9 g/dL 5.9-7. 9 normal Not Available [address] [place] [address], [address], 04/03/2019 16:15:08 04/03/20 19 04/03/2019 CMP, serum or plasm a albumin 4.2 g/dL 2.9-4. 7 normal Not Available [address] [place] [address] [place], [address], 04/03/2019 16:15:08 04/03/20 19 04/03/2019 CMP, serum or plasm a alkaline phosphatase 44 IU/L 18-210 normal Not Available [address] [place] [address], [address], 04/03/2019 16:15:08 04/03/20 19 04/03/2019 CMP, serum or plasm a SGOT (AST) 25 IU/L 15-37 normal Not Available [address] [place] [address], [address], 04/03/2019 16:15:08 04/03/20 19 04/03/2019 CMP, serum or plasm a bilirubin total 0.5 mg/dL 0.2-1. 3 normal Not Available [address] [place] [address], [address], 04/03/2019 16:15:08 04/03/20 19 04/03/2019 CMP, serum or plasm a SGPT (ALT) 31 IU/L 13-56 normal Not Available [address] [place] [address], [address], 04/03/2019 16:15:08 04/03/20 19 04/03/2019 CMP, serum or plasm a sodium 133 mEq/L 135-14 5 low Not Available [address] [place] [address], [address], 04/03/2019 16:15:08 04/03/20 19 04/03/2019 CMP, serum or plasm a potassium 4.5 mEq/L 3.5-5. 1 normal Not Available [address] [place] [address], [address], 04/03/2019 16:15:08 04/03/20 19 04/03/2019 CMP, serum or plasm a chloride 97 mEq/L 98-112 low Not Available [address] [place] [address], [address], 04/03/2019 16:15:08 04/03/20 19 04/03/2019 CMP, serum or plasm a CO2 28 mEq/L 20-32 normal Not Available [address] [place] [address] Drawing [address] [place] [address], [address], 04/03/2019 16:15:08 04/03/20 19 04/03/2019 CMP, serum or plasm a anion gap 8 mEq/L 5-15 normal Not Available [address] [place] [address] [facility] [address] [place] [address], [address], 04/03/2019 16:15:08 04/03/20 19 04/03/2019 rafa stero l, total , serum cholesterol 234 mg/dL normal BORDE RLINE HIGH <200 Rodolfo able 200-2 39 Borde rline High >=240 High The above class ifica tions are based on the recom menda tions of the NCEP Exper t Panel , (ATP III, 2001) . Not Available [address] [place] [address], [address], 04/03/2019 16:15:09 04/03/20 19 04/03/2019 HDL rafa stero l, serum HDL 80 mg/dL normal OPTIM AL <40 Low >=60 Optim al The above class ifica tions are based on the recom menda tions of the NCEP Exper t Panel , (ATP III, 2001) . Not Available [address] [place] [address], [address], 04/03/2019 16:15:10 04/03/20 19 04/03/2019 TSH, serum or plasm a thyroid stimulating hormone 2.88 uIU/m L 0.36-3 .74 normal Not Available [address] [place] [address] [place] [address], [address], 04/03/2019 16:15:11 04/03/20 19 04/03/2019 glyco hemog lobin , total , blood glycohemoglo bin (A1C) 5.5 % 4.2-6. 3 normal Recen t trans fusio n will affec t hemog lobin A1c resul ts. Not Available [address] [place] [address], [address], 04/03/2019 17:36:33 09/30/19 16 09/27/2015 MAMMO , scree lance, digit al, bilat tommyl [facility] DEPART [address] kaitlin kumar [place].0 1201-4 [phone] Patien t: MP VELEZ Phone: Exam Date:0 6 Exam: Dig Mammo Screen ing [place] Attend [facility] M.D.:ANDREAS MARIE MD :10/02 Age/Se x: 59/F Robert beltran M.D.: CHUY LARSEN MD EEsperanza Attend [facility] M.D.: Francis Lam: BRANDI LARSEN MD X-Ray #: [id number] Locati on: RAD.WC Other Locati on: Clinic al Histor y: ROUTIN E #30912 64.001 - DIG MAMMO SCREEN ING [place] BILATE RAL DIGITA L SCREEN ING MAMMOG TYRA WITH CAD: 09/30/19 16 Compar basil is made to exams dated: 015 mammog tyra, 014 mammog tyra, and 06/29/19 13 mammog tyra - [facility] . The tissue of both breast [...] mail. This exam was interp reted at [facility] . Lisa. Seymour haley l/penr ad:09/29 15:17: 56 Imagin g Techno logist : Hope cárdenas RT R M, [facility] letter sent: A1 Mammog bindu Normal Mammog tyra BI-RAD S: 2 Benign Access ion Number : [id number] Transc ribed by: MONTEZ Haddadp reting Physic rg: CARINA SANDOVAL MD Rec'd in [facility] on : 1531 Electr onical ly Signed by: CARINA SANDOVAL MD on 1517 Techno logist : SK Exam CPT #: G0202, Order #: [id number] Report #: [id number] Med Rec#:[id number] Report Status : Signed [facility] (Radiology) [address] [place] [address], [address], 09/30/2015 17:23:16 10/06/19 17 09/30/2016 MAMMO , scree lance, digit al, bilat eral [facility]ica [facility] Center DIAGNO STIC IMAGIN G DEPART [facility]OMEN[facility] G DEPART [address]0 1201-4 [phone] Patien t: MP VELEZ Phone: Exam Date:0 7 Exam: Dig Mammo Screen ing [place] Attend francis M.DShruthi:ANDREAS MARIE MD :10/02 Age/Se x: 61/F Robert beltran M.D.: CHUY LARSEN MD, E.D. Attend francis M.DShruthi: Primes y Tyler MEsperanza: BRANDI LARSEN MD X-Ray #: [id number] Locati on: RAD.WC Other Locati on: Clinic al Histor y: ROUTIN E #50728 08.001 - DIG MAMMO SCREEN ING [place] BILATE RAL DIGITA L SCREEN ING MAMMOG TYRA WITH CAD: 017 Compar basil is made to exams dated: 09/30/19 16 mammog tyra, 015 mammog tyra, 014 mammog tyra, 06/29/2012 mammog tyra, and 012 mammog tyra - [facility] . The tissue of both breast [...] mail. This exam was interp reted at [facility] . Gerhard lopez MD ek/pen rad: 7 12:05: 37 [facility] Techno logist : Rogerio De La O , [facility] letter sent: A1 Mammog bindu Normal Mammog tyra BI-RAD S: 2 Benign Access ion Number : [id number] Transc ribed by: MD Interp reting Physic rg: GERHARD WYATT MD Rec'd in [facility] on : 1407 Electr onical ly Signed by: ROMI WYATT MD on 1205 Techno logist : KL Exam CPT #: G0202, Order #: [id number] Report #: [id number] Med Rec#:[id number] Report Status : Signed [facility] (Radiology) [address] [place], [address], 10/05/2016 14:21:16 10/06/19 17 10/05/2016 MAMMO , grabiele lance, digit al, bilat eral No observ ation record ed. [facility] ([facility]) [address], [place], [address], 10/05/2016 18:08:22 10/30/19 18 10/27/2017 MAMMO , scree lance, digit al, bilat eral [facility] DIAGNO STIC IMAGIN G DEPART [facility] WOMEN' S IMAGIN G [address],[facility] kaitlin kumar [place].0 1201-4 [phone] Patien t: MP VELEZ Phone: Exam Date:0 8 Exam: Dig Mammo Screen ing [place] Attend [facility] M.D.:ANDREAS MARIE MD :10/02 Age/Se x: 62/F Ordernarendra beltran M.D.: CHUY LARSEN MD EEsperanza Attend [facility] M.D.: Primar y Care M.D.: BRANDI LARSEN MD X-Ray #: [id number] Locati on: RAD.WC Other Locati on: Clinic al Histor y: ROUTIN E #58575 98.001 - DIG MAMMO SCREEN ING KAVON [...] mail. This exam was interp reted at [facility] . Gladys Trejo M.D. cl/:10/28/2017 16:42: 19 [facility] Techno logist : Surekha John do RT , [facility] letter sent: A1 Mammog bindu Normal Mammog tyra BI-RAD S: 2 Benign Access ion Number : [id number] [id number] Transc ribed by: MD Interp reting Physic rg: GLADYS TREJO MD Rec'd in [facility] on : 1642 Electr onical ly Signed by: GLADYS TREJO MD on 164 Techno logist : YAYA Exam CPT #: 69903, Order #: [id number] Report #: [id number] [facility] Rec#:M [id number] Report Status : Signed [facility] (Radiology) [address] [place], [address], 10/30/2017 06:48:19 04/04/20 19 08/01/2018 US, echo ardio gram No observ ation record ed. BARCODE Not Available 2018 12:54:21 11/20/19 20 MAMMkelli Xiong digit al, bilat eral No observ ation record ed. [facility] (Central Scheduling) [address] [facility], [place], [address], 11/20/2019 16:08:59 10/03/19 21 2020 kelli [place] bilat eral [facility] Diagno stic Imagin g [facility] [address] [place] [address] Mammog bindu Report Signed Patien t: Mp Velez 2793 : [phone]: Aquilino stewart EMR ID: [id number] Age/Se x: 65/F E.D. Attend ing: Acct: [id number] Loc: RAD.WC PCP: Aquilino stewart MD Admit/ Svc Date: Orderi ng Physic rg: Aquilino stewart MD Date of Servic e: Proced ure(s) : MM screen ing mammo BI Reason for Exam: Routin e Access ion Number (s): [id number] Fax to: cc: Aquilino stewart MD #[id number] - MM SCREEN ING MAMMO BI EXAM: BILATE RAL DIGITA L SCREEN ING MAMMOG TYRA 3D/2D WITH CAD: 021 COMPAR ISONS: Compar basil is made to exams dated: 020 mammog tyra, 10/28/19 18 mammog tyra, and 017 mammog tyra - [facility]agin [facility] . TECHNI QUE: Digita l mammog bindu [...] signif icant interv al change . IMPRES VLADILSAV: NEGATI VE There is no mammog raphic [...] Carina Sandoval MD ll/pen rad: 15:08: 52 [facility] Techno logist (s): Tyrell katz RT(R)( M), [facility] letter sent: A1 Mammog bindu Normal Mammog tyra BI-RAD S: 1 Negati ve Electr onical ly signed on at 1508 by Carina Sandoval MD. PKRUTI AK [facility] (Radiology) [address] [place] [address], [address], 2020 20:59:56 12/07/1906/19/2019 MAMMO , grabiele lance, bilat eral No observ ation record ed. [email or web address] Not Available 2020 16:44:45 Result Notes None recorded. Problems Name Problem SNOMED Code Status Onset Date Resolution Date Notes Provider Name and Address Organization Details Recorded Time Multiple joint pain 90903542 Completed 06/17/[address], [address], [facility] 20/20 [employer] [facility] 6 13:37:41 Cervical radiculo kelly 49144208 Active [address], [address], [facility] 20/20 [employer] [facility] 6 13:37:41 Scoliosi s deformit y of spine 831417376 Active [address], [address], [facility] 20/20 [employer] [facility] 6 13:37:41 Asthma 996205208 Active [address], [address], [facility] 20/20 [employer] [facility] 6 13:37:41 Mass of body structur e 576107889 Completed 06/17/[address], [address], [facility] 20/20 [employer] [facility] 6 13:37:41 Shoulder joint painful on movement 520003187 Completed 04/03/2019 Teresa Holland MD [address] [place] [address], [address], [facility] [employer] 9 10:34:03 Menopaus al symptom 08814007 Completed 06/17/2015 Felicity Dialloaag Anp [address] [place] [address], [address], [facility] [employer] 6 13:37:41 Acute sinusiti s 21065089 Completed 06/17/2015 Felicity Dialloaag Anp [address] [place] [address], [address], [facility] [employer] 6 13:37:41 Primary fibromya lgia syndrome 35872314 Completed 04/03/2019 Teresa Holland MD [address] [place] [address], [address], [facility] [employer] 9 10:33:42 Disorder of rotator cuff 976283744 Completed 04/03/2019 Teresa Holland MD [address] [place] [address], [address], [facility] [employer] 9 10:34:16 Electroc ardiogra m abnormal 300235505 Active Felicityterry Adame [address], [address], [facility] [employer] 6 14:32:49 Aortic valve regurgit ation 98432588 Active Felicityterry Dial[address], [address], [facility] [employer] 6 14:17:50 Atopic dermatit is 62690548 Completed 201604/03/2019 Teresa Holland MD [address] [place] [address], [address], [facility] [employer] 9 10:34:37 Biceps tendinit is 310701756 Active 2016 s/p right shoulder surgery 2015 Teresa Holland MD [address] [place] [address], [address], [facility] [employer] 9 10:36:26 Acquired trigger finger 4402257 Active 2016 Felicity Guzman [address] [place] [address], [address], [facility] [employer] 7 10:57:59 Insomnia 268235734 Completed 201604/03/2019 Teresa Holland MD [address] [place] [address], [address], [facility] [employer] 9 10:34:27 Difficul ty swallowi ng 700456167 Active 2016 Felicity Guzman [address] [place] [address], [address], [facility] [employer] 7 10:58:03 Problem Notes None recorded. Procedures Surgical History Date Name Laterality Status Provider Name and Address Organization Details Recorded Time 06/24/19 16 Orthopedic Surgery completed Missy Zacarias [facility] [employer] [facility] 07/24/2015 13:51:16 05/24/19 07 Colonoscopy completed Missy Zacarias [facility] [employer] [facility] 07/24/2015 13:51:32 05/24/19 02 Hysterectomy completed DHIRAJ Rivas [address] [place] [address], [address], [facility] [employer] 02/07/2014 11:37:39 08/22/18 60 Tonsillectomy completed DHIRAJ Rivas [address] [place] [address], [address], [facility] [employer] 12/07/2012 11:33:04 Imaging Results Imaging Date Name Status LastModified by Organization Details LastModified Time 09/27/2015 MAMMO, screening, digital, bilateral completed [facility] (Radiology) [address] [place] [address], [address], 09/30/2015 17:23:16 09/30/2016 MAMMO, screening, digital, bilateral completed [facility] (Radiology) [address] [place] [address], [address], 10/05/2016 14:21:16 10/05/2016 MAMMO, screening, digital, bilateral completed [email or web address] [facility] ([facility]) [address] [place] [address], [place], [address], 10/05/2016 18:08:22 10/27/2017 MAMMO, screening, digital, bilateral completed [facility] (Radiology) [address] [place] [address], [address], 10/30/2017 06:48:19 08/01/2018 US, echocardiogram completed [facility] Inform ation not available 04/04/2019 12:54:21 11/20/2019 MAMMO, screening, digital, bilateral completed [facility] (Central Scheduling) [address] [place] [address], [address], 11/20/2019 16:08:59 2020 MAMMO, screening, bilateral completed [facility] (Radiology) [address] [place] [address], [address], 2020 20:59:56 06/19/2019 MAMMO, screening, bilateral completed [...] 114 mm[Hg] 72 mm[Hg] Missy Hernandez in [facility] 07/24/2015 13:50:06 Date Recorded Body height Body mass index (BMI) Body weight Heart rate Respiratory rate Systolic blood pressure Diastolic blood pressure Provider Name and Address Organization Details Last Updated DateTime 7 146.05 cm 24.7 kg/m2 38320.7 1 g 68 /min 16 /min 120 mm[Hg] 80 mm[Hg] Kate Gusman LPN [facility] [employer] [facility] 7 10:16:41 Date Recorded Body height Body temperature Oxygen saturation Oxygen saturation in Arterial blood by Pulse oximetry Heart rate Systolic blood pressure Diastolic blood pressure Provider Name and Address Organization Details Last Updated DateTime 8 146.05 cm 99.2 [degF] 97 % 97 % 74 /min 118 mm[Hg] 84 mm[Hg] Batsheva Harrell [facility] 8 11:03:35 Date Recorded Body height Body mass index (BMI) Body weight Heart rate Systolic blood pressure Diastolic blood pressure Provider Name and Address Organization Details Last Updated DateTime 8 146.05 cm 24.7 kg/m2 44738.7 1 g 72 /min 116 mm[Hg] 80 mm[Hg] Lety Baron [facility] 8 09:29:36 Date Recorded Body weight Body mass index (BMI) Body height Heart rate Systolic blood pressure Diastolic blood pressure Provider Name and Address Organization Details Last Updated DateTime 9 40002.9 g 25.1 kg/m2 146.05 cm 64 /min 110 mm[Hg] 68 mm[Hg] Lety Baron [facility] 9 10:12:12 Social History Question Answer Notes LastModified by Organizat ion Details LastModified Time Tobacco Smoking Status Former Smoker 1 pdd x 5-8 years Quit 1978 Missy Tiwari, [address], [address], [facility] [employer] [facility] 02/07/2014 11:38:26 Do You Have An [...] Information not available 07/06/2012 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 No [email or web address] Information not available 01/16/2015 Have You Ever Experienced Any Trauma Such As A Sexual Assault, Domestic Violence, Combat Experience, A Sudden Of A Loved One, Or Anything That Made You Excessively Afraid? No Information not available 12/07/2012 Language Bulgarian Information not available 12/07/2012 Country Of Origin [facility] Information not available 12/07/2012 Dietary Specific Information [...] Sister Problem 59 breast cancer at 47 [email or web address] Not available 07/24/2015 13:51:16 Brother Problem 52 well [email or web address] Not availabl e 07/24/2015 13:51:16 Brother Problem 60 pancre atic cancer [email or web address] Not available 07/24/2015 13:51:16 Sister Problem 64 well [email or web address] Not available 07/24/2015 13:51:16 Father Problem 84 CVA [email or web address] Not available 07/24/2015 13:51:16 Mother Problem 89 well [email or web address] Not available 07/24/2015 13:51:16 Medical History Condition Response Asthma, COPD, Breathing or Lung Disorder Y Anxiety/Depression N Gout N Cardiac History, Heart Murmur, [place] N Eye or Vision Problems N Gynecologic problems N Hernia N Thyroid Problems N GI Problems N Blood Pressure High or Low N Developmental or Behavioral Disorders N Skin Problems N Breast Problem N Food or Environmental Allergies N Diabetes N Muscle, Joint, or Bone Problems Y Bladder,Kidney Problems or Recurrent UTI 's N Bleeding Disorder N Arthritis N Infertility N Cancer (of any kind) N Prostate issues, ED or Sexual Problem N Insomnia N Defects or Inherited Diseases N Cholesterol High or Low N Chronic Pain N Stroke N Headache N Dizziness or Fainting N Anemia, Blood Clot, or Bleeding Disorder N Seizures or Convulsions N Ear Nose & Throat (ENT) Problems N Neuropathy N Osteoporosis N Liver Disease or Hepatitis N Gynecological History Statement/Question Response If Post Menopausal, Age at Menopause [age] Obstetrics History GPAL:G 2 P 0 0 0 2 Type Value Living 2 Total 2 Immunizations Vaccine Type Date Status Note Provider Nam e and Address Organization Details Recorded Time Td (adult), 2 Lf tetanus toxoid, preservative free, adsorbed 7 completed Not Available [facility] 06/24/2019 02:16:57 Td (adult), 2 Lf tetanus toxoid, preservative free, adsorbed 3 completed Not Available [facility] 06/24/2019 02:16:57 Tdap 2 completed Not Available [facility] 06/24/2019 02:16:57 Past Encounters Encounter ID Performer Location Encounter Start Date Encounter Closed Date Diagnosis/Indication Diagnosis SNOMED-CT Code Diagnosis ICD10 Code Diagnosis Note [id number] Carina Benitez CMA [address] [address] 07/06/2012 09:47:42 07/06/2012 10:34:14 [id number] DHIRAJ Rivas [address] [address] 12/07/2012 10:39:33 12/07/2012 12:13:16 [id number] Kate Gusman LPN [address] [address] 02/07/2014 10:39:26 02/07/2014 10:53:[id number] [address] 02/07/2014 11:05:26 02/07/2014 11:58:00 Adult health examination 403615680 [id number] [address] [address] 04/13/2014 11:17:25 04/13/2014 12:18:25 Multiple joint pain 02630429 [id number] Kate Gusman LPN [address] [address] 04/18/2014 08:51:25 04/18/2014 09:42:28 Cervical radiculopathy 78684236 [id number] [address] [address] 11/07/2014 08:57:07 11/07/2014 10:20:16 Cervical radiculopathy 09922123 Scoliosis deformity of spine 461901686 Asthma 861728984 Adult heal th examination 875170032 [id number] Missy Zacarias CMA [address] [address] 01/16/2015 09:24:09 01/16/2015 10:11:54 Mass of body structure 331791023 Right lateral superior knee [id number] [address] [address] 03/06/2015 12:19:16 03/06/2015 12:56:20 Shoulder joint painful on movement 819869872 M25.519 [id number] Felicity Adame Anp [address] [address] 06/17/2015 12:50:30 06/17/2015 13:58:38 Disorder of rotator cuff 601400081 M75.81 Electrocar diogram abnormal 157428105 R94.31 [id number] Juju Dang [address] [address] 07/24/2015 13:40:32 07/24/2015 14:22:46 Aortic valve regurgitation 74777702 I35.1 [id number] Felicity Adame Anp [address] [address] 11/05/2016 09:50:55 11/05/2016 11:06:32 Adult health examination 447220682 Z00.00 Atopic dermatitis 413861 01 L20.9 of eyelids Neck pain 26791195 M54.2 right. S/P rotator cuff surgery Biceps tendinitis 679512 007 M75.21 Right. S/p surgery with Dr Ilana neal finger 5713009 M65.30 Insomnia 047760256 G47.0 0 Difficulty swallowing 28 5733594 R13.10 Screening for malignant neoplasm of colon 161561961 Z12.11 Scoliosis deformity of spine 001020594 M41.9 Has been worked up Aortic edi ve regurgitation 69651870 I35.[address] Yuval lemon [id number] Felicity Guzman [address] [address] 07/07/2017 10:48:38 07/07/2017 11:46:44 Pneumonia 415311279 J18.9 [id number] Felicity Guzman [address] [address] 02/14/2018 09:20:09 02/14/2018 10:21:42 Adult health examination 518548617 Z00.00 Aortic edi ve regurgitation 45837565 I35.[address] Yuval lemon Acquired t transportation security officer finger 9096337 M65.30 Difficulty swallowing 28 7612021 R13.10 declines referral Screening for malignant neoplasm of colon 927331469 Z12.11 [id number] Teresa Holland MD [address] [address] 04/03/2019 09:50:51 04/03/2019 10:55:10 Adult health examination 316296372 Z00.00 does yoga and weights , will get cologuard / mammo utd, repeat bone density Screening for malignant neoplasm of colon 526363898 Z12.11 Z12.12 Menopause present 081706 006 N95.1 Aortic edi ve regurgitation 01970704 I35.1 gets echo every few years Asthma 262084388 J45.90 9 very rarely use inhaler Health [...] 07/24/2015 2 [employer] [place] [id number] [place] 07/24/2015 1 [facility] [place] [id number] [place] 11/05/2016 1 [facility] [place] [id number] [place] 07/07/2017 1 [facility] TYPE I (HMO) [place] [id number] Ese [place] Preet 04/03/2019 1 [facility] [id number] [place] [id number] [place] Notes Date Note Type Note [...] and she has no pain.? Felicity Guzman [address] [place] [address], [address], [employer] 07/24/2015 14:18:22 11/05/2016 text/html Patient is here [...] c/o left middle finger contraction. Felicity Guzman [address] [place] [address], [place], [address], [employer] 11/05/2016 10:59:49 07/07/2017 text/html Patient is here for a 8 day history of sinus pressure, chest pressure, cough and low-grade fever and SOB. She denies myalgias.She has been drinking soup and tea. Felicity Guzman [address] [place] [address], [address], [facility] [employer] 07/07/2017 11:45:45 02/14/2018 text/html Patient is here [...] in 2011.Declines flu vaccine. Felicity Guzman [address] [place], [address], [employer] 02/21/2018 22:29:33 04/03/2019 text/html here for pe, wor ks at [employer] , has back problems and needs to wear sneakers, lost to pancreatic cancer, has grandchildren and helps with elderly mom in retirement, asthma under control Teresa Holland MD [address] [place] [address], [id number], [employer] 04/03/2019 10:53:03 OBGyn Episode No OBEpisode recorded.
== END 2024-07-27 06:09 | disposition home or self-care (01) ==
LOC: CF 06:08
PROVIDERS: Visit Provider Internal Medicine
DX: M47.816 Spondylosis without myelopathy or radiculopathy, lumbar region (principal); M96.1 Postlaminectomy syndrome, not elsewhere classified; M43.16 Spondylolisthesis, lumbar region; M54.16 Radiculopathy, lumbar region
CPT/HCPCS: 64555; C1778; J2003

== ENCOUNTER 2024-07-27 09:35 | Outpatient (AMB) | payer MEDICARE, SELFPAY ==
[2024-07-27 09:41] VITALS: BP 156/92; PULSE 76; O2SAT 99
--- NOTE | 2024-07-27 09:41 | A.OFFVIS_ITS ---
Vital Signs 07/27/24 09:41 07/27/24 11:12 BP 156/92 H 176/89 H Blood Pressure Location Lt brachial Rt brachial Position Sitting Sitting Pulse 76 72 Pulse Source Pulse Oximeter Pulse Oximeter Pulse Oximetry (%) 99 98 Oxygen Delivery Method Room Air Room Air Comment Pre-Op Post-Op Intake Visit Reasons: Right L3 Sprint Allergies No Known Allergies Allergy (Verified 06/28/24 10:25) HPI HPI Right L3 Sprint: Details: Patient presents for scheduled procedure. Denies any recent cough, cold, infection, fever or other significant changes in medical history since last office visit. Physical Exam Vital Signs: Last Vital Signs Pulse 72 07/27/24 11:12 BP 176/89 H 07/27/24 11:12 Pulse Ox 98 07/27/24 11:12 Oxygen Delivery Method Room Air 07/27/24 11:12 Office Procedures Details: Lumbar Nerve Root Stimulation Lead Placement, SPR (Sprint) System, Right L5 ? After the risks, benefits and alternatives were discussed with the patient and informed consent was obtained, patient was placed in the prone position and padded to foster comfort. The skin overlying the lumbosacral spine was prepped and draped in sterile fashion. Fluoroscopy was used to identify the spinous process and lamina in the center of the patient?s region of pain. After identifying and marking the intended target along the course of the medial branch nerve, the skin around the planned entry point and the subcutaneous tissues were injected with lidocaine 1%. An introducer needle and stimulating probe were assembled, inserted and advanced along the intended course of the medial branch nerve as it traverses the lamina medial and inferior to the zygapophyseal joint, taking care to maintain the proper depth of insertion as the introducer is advanced under fluoroscopic guidance. The introducer needle was delivered to a location in proximity to the nerve. Paresthesia testing was 1st conducted at the right L3 medial branch and then at the right L4 medial branch. However the patient did not report adequate paresthesia mapping for her usual pain. The incision was then made to target the right L5 nerve root and this was stimulated at 100 hertz frequency and appropriate paresthesia mapping was obtained for patient's typical pain in her right buttock region. Multiple stimulation parameters were used to deliver stimulation to the target nerve root in concert with stimulating at multiple positions around the nerve. The stimulating probe was removed from the introducer and a percutaneous lead was guided through the needle and delivered to a location in similar proximity to the nerve. Final location was verified with electrical stimulation and documented with fluoroscopy. The introducer needle was removed, and the exposed end of the percutaneous lead was attached to an external stimulator unit. Various electrical parameter combinations were again tested until the patient indicated paresthesia or muscle tension overlapping the distribution of the patient?s typical region of pain. After confirming that lead impedance was in the normal range, the external unit was detached, the needle was removed, and the lead was anchored at the skin. The lead was threaded into the connector block and electrical continuity and desired patient response was confirmed. The connector block was attached to the external stimulator unit. The site was covered with a sterile occlusive dressing. The patient was observed for stability of vital signs and comfort. Sprint PNS Device: Sprint PNS Device [id number] Percutaneous Peripheral Neuroelectrode Procedure: 53045 - Percutaneous Peripheral Neuroelectrode Procedure code (CPT) selection complete Office Meds lidocaine HCl 10 mg/mL (1 %) injection solution Performing Provider: DHIRAJ Hernandez [place] [facility] [place] [facility] Administered by: Madison Sanchez LPN on 07/27/24 10:19 Dose Route Admin Location Dispensed Lot Number Expiration Date ND Master Technician 5 mL subcut 5 mL Assessment & Plan Assessment & Plan (1) Postlaminectomy syndrome: Code(s): M96.1 - Postlaminectomy syndrome, not elsewhere classified Category: Medical (2) Spondylolisthesis, lumbar region: Code(s): M43.16 - Spondylolisthesis, lumbar region Category: Medical (3) Right lumbar radiculitis: Code(s): M54.16 - Radiculopathy, lumbar region Category: Medical Plan Patient is status post temporary right L5 nerve root stimulator lead placement. Patient tolerated procedure well and was discharged home in stable condition with discharge instructions. All questions were answered. We will follow-up via telephone or in clinic to assess response to therapy. A follow-up appointment was made during today's visit. Orders: Orders AMB Sprint PNS Today M47.816 - Spondylosis without myelopathy or radiculopathy, lumbar region FL guidance in treatment room Today M47.816 - Spondylosis without myelopathy or radiculopathy, lumbar region Coding Level of Care Code Procedure Only Diagnoses Postlaminectomy syndrome M96.1 Spondylolisthesis, lumbar region M43.16 Right lumbar radiculitis M54.16 CPT Codes Sprint PNS - Sprint PNS Device: Sprint PNS Device ([id number]) Sprint PNS - SPRINT: 04077 - Percutaneous Peripheral Neuroelectrode ([id number]) Implantable Device Implantable Device Implantable Devices Qty Master Technician Implant Date Expiration Date Analgesic PENS system [employer] 07/27/24 01/05/26
[2024-07-27 11:12] VITALS: BP 176/89; PULSE 72; O2SAT 98
== END 2024-07-27 11:39 | disposition home or self-care (01) ==
LOC: HO.PMCPRC 09:35
PROVIDERS: Visit Provider Internal Medicine
DX: M96.1 Postlaminectomy syndrome, not elsewhere classified (principal); M43.16 Spondylolisthesis, lumbar region; M54.16 Radiculopathy, lumbar region; M47.816 Spondylosis without myelopathy or radiculopathy, lumbar region
CPT/HCPCS: 64555

== ENCOUNTER 2024-07-31 09:35 | Outpatient (AMB) | payer MEDICARE, SELFPAY ==
--- NOTE | 2024-07-31 09:40 | A.OFFVIS_ITS ---
Vital Signs 07/31/24 09:41 Height 4 ft 11 in Weight 121 lb BMI 24.4 BP 166/89 H Blood Pressure Location Lt brachial Position Sitting Respiration 16 Pulse 71 Pulse Source Pulse Oximeter Pulse Oximetry (%) 99 Oxygen Delivery Method Room Air Intake Visit Reasons: s/p right L3 Sprint Research Associate Molecular Biology Required: No Allergies No Known Allergies Allergy (Verified 07/31/24 09:42) Medication List - Last Reconciled 07/31/24 by Madison Sanchez LPN alprazolam 0.25 mg PO DAILY PRN cholecalciferol (vitamin D3) 25 mcg PO DAILY geriatric fedveqhe-bomu-eocy 1 tab PO DAILY hydrocodone-acetaminophen 5-325 mg 1 tab PO BID PRN ibuprofen 200 mg PO Q6H PRN magnesium 250 mg PO DAILY vitamin B complex 1 tab PO DAILY HPI HPI s/p right L3 Sprint: Details: History of Present Illness The patient is a 68-year-old female presenting with a follow-up visit after the right L5 nerve stimulator placement for addressing low back and buttock pain. Her pain is associated with scoliosis and nerve root irritation. As noted, the patient has been adjusting the stimulator settings to manage pain without causing significant tingling. She was informed of potential signs of stimulation excess, such as tingling, and has been implementing changes based on her experience. Her stimulator was programmed specifically to target her leg and buttock pain. Additionally, she engaged in daily activities like getting in and out of a car which may influence her comfort. There was no difficulty managing the device at home with aid from a family member. Clarification around potential device dislodgment, travel guidance, and activity modifications were provided during the visit. Plans for the stimulator's trial duration and subsequent follow-up have been settled. Pain Description - Pain onset: No specific date provided, associated with chronic scoliosis. - Pain quality: Tingling sensation noted in the leg, initially targeting the buttocks and back. - Location: Predominantly in right low back and buttocks, extending to the leg. - Radiation: No specific radiation described beyond leg tingling. - Exacerbating factors: Mechanical activities such as sliding in and out of vehicles. - Alleviating factors: Adjustments in the neurostimulator's intensity. - Activities: Limited back movement suggested; no twisting or bending of the back advised. Physical Exam - Appears afebrile. - Alert and oriented. - Mood and affect appropriate. - Follows and participates in conversation appropriately. - Respiratory effort is unlabored. - Able to transition from sit to stand unassisted. - Ambulates with bilaterally normal heel strike and toe off. - Able to stand and walk on toes and heels. - Lead insertion c/d/i Pain Management - Affect: Discussion on the adaptation of the stimulator influenced patient's comfort and psychological response. - Analgesia: No specific medications discussed; guidelines on stimulator adjustment to manage pain relief were provided. - Adverse Effects: Tingling sensation as a possible sign of overstimulation. - Activities of Daily Living: Limited back movement advised to avoid exacerbating pain. Leg movements remain unrestricted. - Aberrant Drug Related Behaviors: NONE reported or discussed. Physical Exam Vital Signs: Last Vital Signs Pulse 71 07/31/24 09:41 Resp 16 07/31/24 09:41 BP 166/89 H 07/31/24 09:41 Pulse Ox 99 07/31/24 09:41 Oxygen Delivery Method Room Air 07/31/24 09:41 BMI result Body Mass Index 24.4 Assessment & Plan Assessment & Plan (1) Right lumbar radiculitis: Code(s): M54.16 - Radiculopathy, lumbar region Category: Medical (2) Dysfunction of the multifidus muscle of lumbar region: Code(s): M62.85 - Dysfunction of the multifidus muscles, lumbar region Category: Medical (3) Lumbar spondylosis: Code(s): M47.816 - Spondylosis without myelopathy or radiculopathy, lumbar region Category: Medical (4) Scoliosis: Code(s): M41.9 - Scoliosis, unspecified Category: Medical Plan Plan The management plan involves careful regulation of the right L5 nerve stimulator to address chronic low back and buttock pain owing to nerve root issues and scoliosis. Instructions were provided to adjust the stimulator gradually to reduce excessive leg tingling and focus on minimizing back movements, recommending leg exercises to maintain function. The stimulator will be assessed for its efficacy after the current two-month trial, with further options to extend its use based on its effectiveness. Travel advice noted that the stimulator does not pose issues with metal detectors. Her condition will be reviewed post removal, evaluating the stimulator's impact on symptom relief and future management possibilities. Patient was informed and verbally consented to the use of an ambient scribe for clinic note documentation during this visit. Discussion Notes We reviewed likely outcomes concerning stimulator placement for pain relief, emphasizing incremental adjustments to manage tingling side effects. Precau tionary advice covered signs of potential displacement or inefficacy, with reinforcement on safety during travel. The patient was informed about restricted back movements while maintaining leg exercises. Follow-up was scheduled after the stimulator's two-month period to assess continuation for potential further interventions. Long-term management strategies included possible replacement based on demonstrated benefit. Patient Instructions - Adjust the nerve stimulator setting to comfort, preventing excessive tingling. - Avoid twisting or bending your back; engage in leg exercises. - Conduct dressing changes as taught, monitoring for signs of dislodgment. - Carry a note for airport security if needed, though the device should typically cause no travel issues. - Follow up after stimulator's scheduled removal to assess efficacy and plan further management. - Contact the clinic if the stimulator causes significant discomfort or other concerns arise. Coding Level of Care Code Est Pt Level 3 (51564) Diagnoses Right lumbar radiculitis M54.16 Dysfunction of the multifidus muscle of lumbar region M62.85 Lumbar spondylosis M47.816 Scoliosis M41.9
[2024-07-31 09:41] VITALS: BP 166/89; PULSE 71; RESP 16; O2SAT 99; BMI 24.4
--- OUTSIDE RECORDS SUMMARY | 2024-07-31 10:25 | XMS_ITS | Data Portability ---
Author Organization [place] - [facility], [facility] [employer] Address [address] [place] [address] Care Team Providers Care Edger Machine Setter Name Role Phone TERESA HOLLAND Primary Care [...] n as required by HIPAA. I authorize [employer] [employer] to obtain reimbursem ent for Cologuard and to directly contact and collect a second sample from the patient as appropriat e.ICD-10 Code: Z12.11 2018 [facility] (Cologuard Orders Only), [address], [address], [place], [address], 0 07:23:21 CBC 2018 [facility] (Lab), [address], [place], [address], 9 15:59:34 CMP, serum or plasma 2018 [facility] (Lab), [address], [place], [address], 9 16:15:08 cholestero l, total, serum 2018 [facility] (Lab), [address], [place], [address], 9 16:15:09 HDL cholestero l, serum 2018 019 [facility] (Lab), [address], [place], [address], 9 16:15:10 glycohemog lobin, total, blood 2018 019 [facility] (Lab), [address] [facility] [address], [place], [address], 9 17:36:34 TSH, serum or plasma 2018 019 [facility] (Lab), [address], [place], [address], 9 16:15:11 fecal occult blood, immunoassa y, stool 2017 018 [facility] (Lab), [address] [facility] [address], [place], [address], 8 15:07:17 CMP, serum or plasma 2017 018 [facility] (Lab), [address], [place], [address], 8 17:18:55 CBC 2017 018 [facility] (Lab), [address], [place], [address], 8 16:33:54 lipid panel, serum 2017 018 [facility] (Lab), [address], [place], [address], 8 17:18:57 fecal occult blood, immunoassa y, stool 2016 017 [facility] (Lab), [address], [place], [address], 8 10:50:10 CBC 2016 017 [facility] (Lab), [address], [place], [address], 7 16:57:33 CMP, serum or plasma 2016 017 [facility] (Lab), [address] [facility] [address], [place], [address], 7 16:31:48 Referral orthopedic referral - continued right shoulder pain 2016 017 [email or web address] Not available 7 10:21:50 orthopedic referral - Left middle finger 2016 017 [email or web address] Not available 7 10:22:[address] referral - aortic valve regurg noted on echo, abnormal ECG 2015 016 [facility] (Cardiology), [address] [place], [address], 6 13:42:57 Procedures None recorded. Surgeries None recorded. Imaging MAMMO, screening, digital, bilateral 2018 019 [facility] (Central Scheduling), [address] [place] [address], [address], 0 11:45:15 bone density 2018 019 [facility] (Central Scheduling), [address] [place] [address], [address], 0 08:18:53 Medication Orders ProAir HFA 90 mcg/actuat ion aerosol inhaler 2018 019 [facility], [address] [facility] [place], [address], 9 10:48:28 Augmentin 875 mg-125 mg tablet 2017 018 [facility], [address] [facility], [place], [address], 8 09:28:25 codeine 10 mg-guaifen esin 100 mg/5 mL oral liquid 2017 018 [facility], [address] [place], [address], 8 09:28:27 ProAir HFA 90 mcg/actuat ion aerosol inhaler 2017 018 [facility], [address] [place], [address], 8 09:28:29 TobraDex 0.3 %-0.1 % eye ointment 2016 017 [facility], [address] [place], [address], 8 11:03:55 Patient TargetsNo targets recorded. Patient Instructions Encounter Date Encounter Id Patient Instructions Last Modified By Organization Details Last Modified Time 07/24/2015 [id number] Will send to cardiology.? ? ? Will f/u as needed. [email or web address] Not available 07/24/2015 14:17:50 11/05/2016 [id number] Declines colonoscopy referral at this time. Will do ifob. Declines any help with insomnia or shoulder pain. Will send back to ortho to have shoulder reassessed and for trigger finger. F/u as needed. [email or web address] Not available 11/05/2016 10:49:31 07/07/2017 [id number] Will return to office if symptoms do not improve with treatment. [email or web address] Not available 07/07/2017 11:45:19 02/14/2018 [id number] Breast US in Apr , will get ifob. she declines flu vacc. Will call patient when lab tests are resulted. [email or web address] Not available 02/21/2018 22:29:09 04/03/2019 [id number] controlling your asthma: care instructions [email or web address] Not available 04/03/2019 10:48:00 learning about asthma [email or web address] Not available 04/03/2019 10:48:00 aortic valve regurgitation: care instructions [email or web address] Not available 04/03/2019 10:36:46 Reason for Referral Manager Document Control Referral for Ao rtic valve regurgitation aortic valve regurg noted on echo, abnormal ECG Referring Physician: [facility], Encounter Date: 07/24/2015 Orthopedic Referral for Julio Cesar ps tendinitis continued right shoulder pain Referring Physician: [facility], Encounter Date: 11/05/2016 Orthopedic Referral for Acqu ired trigger finger Left middle finger Referring Physician: [facility], Encounter Date: 11/05/2016 Results Created [...] if clini jcarlos indic ated. Test Type: [place] site algor ithmi c bety sis of [...] years or older , who are at [facility] for [facility]. Colog uard has been [...] , singl e point in time) of [facility] adult s aged 50-84 . Colog [...] ution s can be found at [email or web address]. Rx only. Not Available [facility] (Cologuard Orders Only) [address], [place], [address], 04/02/2020 06:09:37 11/06/19 17 11/05/2016 CMP, serum or plasm a glucose 102 mg/dL 70-109 normal Not Available [address] [place] [address], [address], 11/05/2016 16:31:48 11/06/19 17 11/05/2016 CMP, serum or plasm a BUN 16 mg/dL 6-23 normal Not Available [address] [place] [address], [address], 11/05/2016 16:31:48 11/06/19 17 11/05/2016 CMP, serum or plasm a creatinine 0.87 mg/dL 0.0-1. 3 normal Not Available [address] [place] [address], [address], 11/05/2016 16:31:48 11/06/19 17 11/05/2016 CMP, serum [...] G5 (kidn ey failu re). Not Available [address] [place] [address], [address], 11/05/2016 16:31:48 11/06/19 17 11/05/2016 CMP, serum or plasm a calcium 9.1 mg/dL 8.3-9. 9 normal Effec tive 5: Pleas e note the refer ence range for this test has perla ed. Not Available [address] [place] [address], [address], 11/05/2016 16:31:48 11/06/19 17 11/05/2016 CMP, serum or plasm a total protein 6.8 g/dL 5.9-7. 9 normal Effec tive 5/5/1 5: Pleas e note the refer ence range for this test has perla ed. Exact pedia tric range s are not estab lishe d, but tend to be lower than adult range s. Not Available [address] [place] [address] [address] [place] [address], [address], 11/05/2016 16:31:48 11/06/19 17 11/05/2016 CMP, serum or plasm a albumin 4.1 g/dL 2.9-4. 7 normal Effec tive 015: The Album in metho d perla ed from a BCG to a BCP metho d. Resul ts will be appro ximat radha 0.4 g/dL lower than the old metho d. Laney nair note the perla e in the refer ence range . Not Available [address] [place] [address], [address], 11/05/2016 16:31:48 11/06/19 17 11/05/2016 CMP, serum or plasm a alkaline phosphatase 48 IU/L 18-210 normal Not Available [address] [place] [address], [address], 11/05/2016 16:31:48 11/06/19 17 11/05/2016 CMP, serum or plasm a SGOT (AST) 19 IU/L 15-37 normal Effec tive 5: Laney nair note the refer ence range for this test has perla ed. Not Available [address] [place] [address], [address], 11/05/2016 16:31:48 11/06/19 17 11/05/2016 CMP, serum or plasm a bilirubin total 0.3 mg/dL 0.2-1. 3 normal Not Available [address] [place] [address], [address], 11/05/2016 16:31:48 11/06/19 17 11/05/2016 CMP, serum or plasm a SGPT (ALT) 31 IU/L 13-56 normal Not Available [address] [place] [address] Drawing Station [address] [place] [address], [address], 11/05/2016 16:31:48 11/06/19 17 11/05/2016 CMP, serum or plasm a sodium 133 mEq/L 135-14 5 low Not Available [address] [place] [address], [address], 11/05/2016 16:31:48 11/06/19 17 11/05/2016 CMP, serum or plasm a potassium 4.3 mEq/L 3.5-5. 1 normal Not Available [address] [place] [address], 15[address], 11/05/2016 16:31:48 11/06/19 17 11/05/2016 CMP, serum or plasm a chloride 97 mEq/L 98-112 low Not Available [address] [place] [address], [address], 11/05/2016 16:31:48 11/06/19 17 11/05/2016 CMP, serum or plasm a CO2 31 mEq/L 20-32 normal Not Available [address] [place] [address], [address], 11/05/2016 16:31:48 11/06/19 17 11/05/2016 CMP, serum or plasm a anion gap 5 mEq/L 5-15 normal Not Available [address] [place] [address], [address], 11/05/2016 16:31:48 11/06/19 17 11/05/2016 CBC WBC count 4.9 K/mm3 4.0-11 .0 normal Not Available [address] [place] [address], [address], 11/05/2016 16:57:33 11/06/19 17 11/05/2016 CBC red blood cell count 4.17 M/uL 4.00-5 .20 normal Not Available [address] [place] [address], [address], 11/05/2016 16:57:33 11/06/19 17 11/05/2016 CBC hemoglobin 13.2 gm/dL 12.0-1 6.0 normal Not Available [address] [place] [address], [place], [address], 11/05/2016 16:57:33 11/06/19 17 11/05/2016 CBC hematocrit 40.0 % 36.0-4 6.0 normal Not Available [address] [place] [address], [address], 11/05/2016 16:57:33 11/06/19 17 11/05/2016 CBC MCV 95.8 fL 86-99 normal Not Available [address] [place] [address], [address], 11/05/2016 16:57:33 11/06/19 17 11/05/2016 CBC RDW 12.2 % 11.5-1 6.0 normal Not Available [address] [place] [address], [address], 11/05/2016 16:57:33 11/06/19 17 11/05/2016 CBC plt count 251 K/uL 140-44 0 normal Not Available [address] [place] [address], [address], 11/05/2016 16:57:33 11/06/19 17 11/05/2016 CBC ne# 3.2 K/uL 1.5-7. 5 normal Not Available [address] [place] [address], [address], 11/05/2016 16:57:33 11/06/19 17 11/05/2016 CBC ly# 1.2 K/uL 1.0-4. 5 normal Not Available [address] [place] [address], [address], 11/05/2016 16:57:33 11/06/19 17 11/05/2016 CBC MO# 0.2 K/uL 0.0-0. 8 normal Not Available [address] [place] [address], [address], 11/05/2016 16:57:33 11/06/19 17 11/05/2016 CBC eo# 0.3 K/uL 0.0-0. 4 normal Not Available [address] [place] [address], [address], 11/05/2016 16:57:33 11/06/19 17 11/05/2016 CBC ba# 0.0 K/uL 0.0-0. 2 normal Not Available [address] [place] [address], [address], 11/05/2016 16:57:33 11/06/19 17 11/05/2016 CBC ne% 64.5 % normal Not Available [address] [place] [address], [address], 11/05/2016 16:57:33 11/06/19 17 11/05/2016 CBC ly% 25.0 % normal Not Available [address] [place] [address], [address], 11/05/2016 16:57:33 11/06/19 17 11/05/2016 CBC MO% 4.9 % normal Not Available [address] [place] [address], [address], 11/05/2016 16:57:33 11/06/19 17 11/05/2016 CBC eo% 5.2 % normal Not Available [address] [place] [address], 06[address], 11/05/2016 16:57:33 11/06/19 17 11/05/2016 CBC ba% 0.5 % normal Not Available [address] [place] [address], [address], 11/05/2016 16:57:33 12/08/19 17 12/07/2016 sodiu m, urine sodium, random urine 21 mEq/L normal Not Available [address] [place] [address], [address], 12/07/2016 14:17:24 12/08/19 17 12/07/2016 BMP, serum or plasm a glucose 83 mg/dL 70-109 normal Not Available [address] [place] [address], [address], 12/07/2016 14:33:32 12/08/19 17 12/07/2016 BMP, serum or plasm a BUN 19 mg/dL 6-23 normal Not Available [address] [place] [address], [address], 12/07/2016 14:33:32 12/08/19 17 12/07/2016 BMP, serum or plasm a creatinine 1.17 mg/dL 0.0-1. 3 normal Not Available [address] [place] [address], [address], 12/07/2016 14:33:32 12/08/19 17 12/07/2016 BMP, serum [...] G5 (kidn ey failu re). Not Available [address] [place] [address], [address], 12/07/2016 14:33:32 12/08/19 17 12/07/2016 BMP, serum or plasm a calcium 8.9 mg/dL 8.3-9. 9 normal Effec tive 5: Pleas e note the refer ence range for this test has perla ed. Not Available [address] [place] [address] [address] [place] [address], [address], 12/07/2016 14:33:32 12/08/19 17 12/07/2016 BMP, serum or plasm a sodium 135 mEq/L 135-14 5 normal Not Available [address] [place] [address], 33[address], 12/07/2016 14:33:32 12/08/19 17 12/07/2016 BMP, serum or plasm a potassium 4.4 mEq/L 3.5-5. 1 normal Not Available [address] [place] [address], 6[address], 12/07/2016 14:33:32 12/08/19 17 12/07/2016 BMP, serum or plasm a chloride 97 mEq/L 98-112 low Not Available [address] [place] [address], [address], 12/07/2016 14:33:32 12/08/1912/07/2016 BMP, serum or plasm a CO2 30 mEq/L 20-32 normal Not Available [address] [place] [address], 7[address], 12/07/2016 14:33:32 12/08/1912/07/2016 BMP, serum or plasm a anion gap 8 mEq/L 5-15 normal Not Available [address] [place] [address], [address], 12/07/2016 14:33:32 12/08/1912/07/2016 TSH, serum or plasm a thyroid stimulating hormone 2.02 uIU/m L 0.36-3 .74 normal Effec tive 5: Laney nair note the refer ence range for this test has perla ed. Not Available [address] [place] [address], [address], 12/07/2016 14:33:33 02/15/20 18 02/14/2018 CBC WBC count 5.0 K/mm3 4.0-11 .0 normal Not Available [address] [place] [address], [address], 02/14/2018 16:33:54 02/15/20 18 02/14/2018 CBC red blood cell count 4.24 M/uL 4.00-5 .50 normal Not Available [address] [place] [address], [address], 02/14/2018 16:33:54 02/15/20 18 02/14/2018 CBC hemoglobin 13.6 gm/dL 12.0-1 6.0 normal Not Available [address] [place] [address], [address], 02/14/2018 16:33:54 02/15/20 18 02/14/2018 CBC hematocrit 40.0 % 37.0-4 7.0 normal Not Available [address] [place] [address], [address], 02/14/2018 16:33:54 02/15/20 18 02/14/2018 CBC MCV 94.3 fL 80.0-1 00.0 normal Not Available [address] [place] [address], 932[address], 02/14/2018 16:33:54 02/15/20 18 02/14/2018 CBC RDW 12.1 % 11.5-1 6.0 normal Not Available [address] [place] [address], 16878, 02/14/2018 16:33:54 02/15/20 18 02/14/2018 CBC plt count 249 K/uL 140-40 0 normal Not Available [address] [place] [address], 61090, 02/14/2018 16:33:54 02/15/20 18 02/14/2018 CBC NRBC% 0.0 % 0.0-0. 7 normal Not Available [address] [place] [address], [address], 02/14/2018 16:33:54 02/15/20 18 02/14/2018 CBC ne# 2.74 K/uL 1.50-7 .50 normal Not Available [address] [place] [address] [address] [place] [address], [address], 02/14/2018 16:33:54 02/15/20 18 02/14/2018 CBC ly# 1.28 K/uL 1.00-4 .50 normal Not Available [address] [place] [address] [address] [place] [address], [address], 02/14/2018 16:33:54 02/15/20 18 02/14/2018 CBC MO# 0.41 K/uL 0.00-0 .80 normal Not Available [address] [place] [address] [address] [place] [address], 306[address], 02/14/2018 16:33:54 02/15/20 18 02/14/2018 CBC eo# 0.51 K/uL 0.00-0 .40 high Not Available [address] [place] [address] [address] [place] [address], [address], 02/14/2018 16:33:54 02/15/20 18 02/14/2018 CBC ba# 0.04 K/uL 0.00-0 .20 normal Not Available [address] [place] [address] [address] [place] [address], 718[address], 02/14/2018 16:33:54 02/15/20 18 02/14/2018 CBC Ig# 0.01 K/uL 0.00-0 .10 normal Not Available [address] [place] [address] [address] [place] [address], 928[address], 02/14/2018 16:33:54 02/15/20 18 02/14/2018 CBC ne% 54.9 % normal Not Available [address] [place] [address] [address] [place] [address], 88747, 02/14/2018 16:33:54 02/15/20 18 02/14/2018 CBC ly% 25.7 % normal Not Available [address] [place] [address] [address] [place] [address], 357[address], 02/14/2018 16:33:54 02/15/20 18 02/14/2018 CBC MO% 8.2 % normal Not Available [address] [place] [address], 28[address], 02/14/2018 16:33:54 02/15/20 18 02/14/2018 CBC eo% 10.2 % normal Not Available [address] [place] [address], 84266, 02/14/2018 16:33:54 02/15/20 18 02/14/2018 CBC ba% 0.8 % normal Not Available [address] [place] [address], 01174, 02/14/2018 16:33:54 02/15/20 18 02/14/2018 CBC Ig% 0.2 % 0.0-1. 4 normal Not Available [address] [place] [address], 10938, 02/14/2018 16:33:54 02/15/20 18 02/14/2018 CMP, serum or plasm a glucose 91 mg/dL 70-100 normal Not Available [address] [place] [address], 03814, 02/14/2018 17:18:55 02/15/20 18 02/14/2018 CMP, serum or plasm a BUN 15 mg/dL 6-23 normal Not Available [address] [place] [address], 78551, 02/14/2018 17:18:55 02/15/20 18 02/14/2018 CMP, serum or plasm a creatinine 0.89 mg/dL 0.0-1. 3 normal Not Available [address] [place] [address], 52443, 02/14/2018 17:18:55 02/15/20 18 02/14/2018 CMP, serum [...] G5 (kidn ey failu re). Not Available [address] [place] [address], [address], 02/14/2018 17:18:55 02/15/20 18 02/14/2018 CMP, serum or plasm a calcium 9.7 mg/dL 8.3-9. 9 normal Not Available [address] [place] [address], 21562, 02/14/2018 17:18:55 02/15/2002/14/2018 CMP, serum or plasm a total protein 7.0 g/dL 5.9-7. 9 normal Exact pedia tric range s are not estab lishe d, but tend to be lower than adult range s. Not Available [address] [place] [address], 92144, 02/14/2018 17:18:55 02/15/20 18 02/14/2018 CMP, serum or plasm a albumin 4.5 g/dL 2.9-4. 7 normal Not Available [address] [place] [address], 66990, 02/14/2018 17:18:55 02/15/20 18 02/14/2018 CMP, serum or plasm a alkaline phosphatase 50 IU/L 18-210 normal Not Available [address] [place] [address], 67365, 02/14/2018 17:18:55 02/15/20 18 02/14/2018 CMP, serum or plasm a SGOT (AST) 30 IU/L 15-37 normal Not Available [address] [place] [address], 33[address], 02/14/2018 17:18:55 02/15/20 18 02/14/2018 CMP, serum or plasm a bilirubin total 0.4 mg/dL 0.2-1. 3 normal Not Available [address] [place] [address], 95187, 02/14/2018 17:18:55 02/15/20 18 02/14/2018 CMP, serum or plasm a SGPT (ALT) 33 IU/L 13-56 normal Not Available [address] [place] [address], 86461, 02/14/2018 17:18:55 02/15/20 18 02/14/2018 CMP, serum or plasm a sodium 138 mEq/L 135-14 5 normal Not Available [address] [place] [address], 35101, 02/14/2018 17:18:55 02/15/20 18 02/14/2018 CMP, serum or plasm a potassium 4.9 mEq/L 3.5-5. 1 normal Not Available [address] [place] [address], 95416, 02/14/2018 17:18:55 02/15/20 18 02/14/2018 CMP, serum or plasm a chloride 100 mEq/L 98-112 normal Not Available [address] [place] [address], 69207, 02/14/2018 17:18:55 02/15/20 18 02/14/2018 CMP, serum or plasm a CO2 30 mEq/L 20-32 normal Not Available [address] [place] [address], 01886, 02/14/2018 17:18:55 02/15/20 18 02/14/2018 CMP, serum or plasm a anion gap 8 mEq/L 5-15 normal Not Available [address] [place] [address] Draw[address] [place] [address], 40145, 02/14/2018 17:18:55 02/15/20 18 02/14/2018 lipid panel , serum cholesterol 228 mg/dL normal BORDE RLINE HIGH <200 Rodolfo able 200-2 39 Borde rline High >=240 High Not Available [address] [place] [address], 28383, 02/14/2018 17:18:57 02/15/20 18 02/14/2018 lipid panel , serum triglyceride 76 mg/dL normal YOLI L <=150 Yoli l 150-1 99 Borde rline High 200-4 99 High >=500 Very High Not Available [address] [place] [address], 66546, 02/14/2018 17:18:57 02/15/20 18 02/14/2018 lipid panel , serum HDL 88 mg/dL normal OPTIM AL <40 Low >=60 Optim al Not Available [address] [place] [address], 95383, 02/14/2018 17:18:57 02/15/20 18 02/14/2018 lipid panel , serum calculated LDL 125 mg/dL normal NEAR OPTIM AL <100 Optim al 100-1 29 Near optim al 130-1 59 Borde rline High 160-1 89 High >=190 Very High The above class ifica tions are based on the recom menda tions of the NCEP Exper t Panel , (ATP III, 2001) . Not Available [address] [place] [address], 51926, 02/14/2018 17:18:57 02/22/20 18 02/21/2018 fecal occul t blood , immun oassa y, stool immuno fecal occult blood NEGATI VE negati ve normal Not Available [address] [place] [address], 40215, 02/21/2018 15:07:17 04/03/2004/03/2019 CBC WBC count 6.1 K/mm3 4.0-11 .0 normal Not Available [address] [place] [address], 41610, 04/03/2019 15:59:34 04/03/2004/03/2019 CBC red blood cell count 4.10 M/uL 4.00-5 .50 normal Not Available [address] [place] [address], 42248, 04/03/2019 15:59:34 04/03/2004/03/2019 CBC hemoglobin 13.0 gm/dL 12.0-1 6.0 normal Not Available [address] [place] [address], 30989, 04/03/2019 15:59:34 04/03/2004/03/2019 CBC hematocrit 39.7 % 37.0-4 7.0 normal Not Available [address] [place] [address], 90861, 04/03/2019 15:59:34 04/03/2004/03/2019 CBC MCV 96.8 fL 80.0-1 00.0 normal Not Available [address] [place] [address], 88235, 04/03/2019 15:59:34 04/03/2004/03/2019 CBC RDW 11.9 % 11.5-1 6.0 normal Not Available [address] [place] [address], 98957, 04/03/2019 15:59:34 04/03/2004/03/2019 CBC plt count 244 K/uL 140-40 0 normal Not Available [address] [place] [address], 22784, 04/03/2019 15:59:34 04/03/2004/03/2019 CBC mean platelet volume 10.5 fL 8.6-12 .5 normal Not Available [address] [place] [address], 44181, 04/03/2019 15:59:34 04/03/20 19 04/03/2019 CBC NRBC% 0.0 % 0.0-0. 7 normal Not Available [address] [place] [address] [address] [place] [address], 52942, 04/03/2019 15:59:34 04/03/20 19 04/03/2019 CBC ne# 3.89 K/uL 1.50-7 .50 normal Not Available [address] [place] [address], 72977, 04/03/2019 15:59:34 04/03/20 19 04/03/2019 CBC ly# 1.41 K/uL 1.00-4 .50 normal Not Available [address] [place] [address], 82297, 04/03/2019 15:59:34 04/03/20 19 04/03/2019 CBC MO# 0.41 K/uL 0.00-0 .80 normal Not Available [address] [place] [address], 74869, 04/03/2019 15:59:34 04/03/20 19 04/03/2019 CBC eo# 0.32 K/uL 0.00-0 .40 normal Not Available [address] [place] [address], 57486, 04/03/2019 15:59:34 04/03/20 19 04/03/2019 CBC ba# 0.05 K/uL 0.00-0 .20 normal Not Available [address] [place] [address], 98680, 04/03/2019 15:59:34 04/03/20 19 04/03/2019 CBC Ig# 0.01 K/uL 0.00-0 .10 normal Not Available [address] [place] [address], 32886, 04/03/2019 15:59:34 04/03/20 19 04/03/2019 CBC ne% 63.8 % normal Not Available [address] [place] [address], 46301, 04/03/2019 15:59:34 04/03/20 19 04/03/2019 CBC ly% 23.2 % normal Not Available [address] [place] [address], 43670, 04/03/2019 15:59:34 04/03/20 19 04/03/2019 CBC MO% 6.7 % normal Not Available [address] [place] [address], 48622, 04/03/2019 15:59:34 04/03/2004/03/2019 CBC eo% 5.3 % normal Not Available [address] [place] [address], 28502, 04/03/2019 15:59:34 04/03/2004/03/2019 CBC ba% 0.8 % normal Not Available [address] [place] [address], 61414, 04/03/2019 15:59:34 04/03/2004/03/2019 CBC Ig% 0.2 % 0.0-1. 4 normal Not Available [address] [place] [address], [id number], 04/03/2019 15:59:34 04/03/2004/03/2019 CMP, serum or plasm a glucose 91 mg/dL 70-100 normal Not Available [address] [place] [address], [id number], 04/03/2019 16:15:08 04/03/2004/03/2019 CMP, serum or plasm a BUN 24 mg/dL 6-23 high Not Available [address] [place] [address], [id number], 04/03/2019 16:15:08 04/03/2004/03/2019 CMP, serum or plasm a creatinine 0.82 mg/dL 0.0-1. 3 normal Not Available [address] [place] [address], [id number], 04/03/2019 16:15:08 04/03/20 19 04/03/2019 CMP, serum [...] G5 (kidn ey failu re). Not Available [address] [place] [address], [address], 04/03/2019 16:15:08 04/03/20 19 04/03/2019 CMP, serum or plasm a calcium 9.7 mg/dL 8.1-10 .4 normal Not Available [address] [place] [address], [address], 04/03/2019 16:15:08 04/03/20 19 04/03/2019 CMP, serum or plasm a total protein 6.9 g/dL 5.9-7. 9 normal Not Available [address] [place] [address], 10[address], 04/03/2019 16:15:08 04/03/20 19 04/03/2019 CMP, serum or plasm a albumin 4.2 g/dL 2.9-4. 7 normal Not Available [address] [place] [address] [place], [address], 04/03/2019 16:15:08 04/03/20 19 04/03/2019 CMP, serum or plasm a alkaline phosphatase 44 IU/L 18-210 normal Not Available [address] [place] [address], [address], 04/03/2019 16:15:08 04/03/20 19 04/03/2019 CMP, serum or plasm a SGOT (AST) 25 IU/L 15-37 normal Not Available [address] [place] [address], [address], 04/03/2019 16:15:08 04/03/20 19 04/03/2019 CMP, serum or plasm a bilirubin total 0.5 mg/dL 0.2-1. 3 normal Not Available [address] [place] [address], [address], 04/03/2019 16:15:08 04/03/20 19 04/03/2019 CMP, serum or plasm a SGPT (ALT) 31 IU/L 13-56 normal Not Available [address] [place] [address], [address], 04/03/2019 16:15:08 04/03/20 19 04/03/2019 CMP, serum or plasm a sodium 133 mEq/L 135-14 5 low Not Available [address] [place] [address], 90[address], 04/03/2019 16:15:08 04/03/20 19 04/03/2019 CMP, serum or plasm a potassium 4.5 mEq/L 3.5-5. 1 normal Not Available [address] [place] [address], [address], 04/03/2019 16:15:08 04/03/20 19 04/03/2019 CMP, serum or plasm a chloride 97 mEq/L 98-112 low Not Available [address] [place] [address], [address], 04/03/2019 16:15:08 04/03/20 19 04/03/2019 CMP, serum or plasm a CO2 28 mEq/L 20-32 normal Not Available [address] [place] [address] Drawing [address] [place] [address], [address], 04/03/2019 16:15:08 04/03/20 19 04/03/2019 CMP, serum or plasm a anion gap 8 mEq/L 5-15 normal Not Available [address] [place] [address] Draw[address] [place] [address], [address], 04/03/2019 16:15:08 04/03/20 19 04/03/2019 rafa stero l, total , serum cholesterol 234 mg/dL normal BORDE RLINE HIGH <200 Rodolfo able 200-2 39 Borde rline High >=240 High The above class ifica tions are based on the recom menda tions of the NCEP Exper t Panel , (ATP III, 2001) . Not Available [address] [place] [address], [address], 04/03/2019 16:15:09 04/03/20 19 04/03/2019 HDL rafa stero l, serum HDL 80 mg/dL normal OPTIM AL <40 Low >=60 Optim al The above class ifica tions are based on the recom menda tions of the NCEP Exper t Panel , (ATP III, 2001) . Not Available [address] [place] [address], [address], 04/03/2019 16:15:10 04/03/20 19 04/03/2019 TSH, serum or plasm a thyroid stimulating hormone 2.88 uIU/m L 0.36-3 .74 normal Not Available [address] [place] [address] [place] [address], [address], 04/03/2019 16:15:11 04/03/20 19 04/03/2019 glyco hemog lobin , total , blood glycohemoglo bin (A1C) 5.5 % 4.2-6. 3 normal Recen t trans fusio n will affec t hemog lobin A1c resul ts. Not Available [address] [place] [address], [address], 04/03/2019 17:36:33 09/30/19 16 09/27/2015 MAMMO , scree lance, digit al, bilat tommyl [facility] DEPART [address] kaitlin kumar [place].0 1201-4 [phone] Patien t: MP VELEZ Phone: Exam Date:0 6 Exam: Dig Mammo Screen ing [place] Attend [facility] M.D.:ANDREAS MARIE MD :10/02 Age/Se x: 59/F Robert beltran M.D.: CHUY LARSEN MD EEsperanza Attend [facility] M.D.: Francis Lam: BRANDI LARSEN MD X-Ray #: [id number] Locati on: RAD.WC Other Locati on: Clinic al Histor y: ROUTIN E #44530 64.001 - DIG MAMMO SCREEN ING [place] BILATE RAL DIGITA L SCREEN ING MAMMOG TYRA WITH CAD: 09/30/19 16 Compar basil is made to exams dated: 015 mammog tyra, 014 mammog tyra, and 06/29/19 13 mammog tyra - [facility] . The tissue of both breast [...] mail. This exam was interp reted at [facility] . Lisa. Seymour haley l/penr ad:09/29 15:17: 56 Imagin g Techno logist : Hope cárdenas RT R M, [facility] letter sent: A1 Mammog bindu Normal Mammog tyra BI-RAD S: 2 Benign Access ion Number : [id number] Transc ribed by: MONTEZ Haddadp reting Physic rg: CARINA SANDOVAL MD Rec'd in [employer] on : 1531 Electr onical ly Signed by: CARINA SANDOVAL MD on 1517 Techno logist : SK Exam CPT #: G0202, Order #: [id number] Report #: [id number] Med Rec#:[id number] Report Status : Signed [facility] (Radiology) [address] [place] [address], [address], 09/30/2015 17:23:16 10/06/19 17 09/30/2016 MAMMO , scree lance, digit al, bilat eral [facility] shen Medica [facility] Center DIAGNO STIC IMAGIN G DEPART [facility] DEPART [address]0 1201-4 [phone] Patien t: MP VELEZ Phone: Exam Date:0 7 Exam: Dig Mammo Screen ing [place] Attend francis M.DShruthi:ANDREAS MARIE MD :10/02 Age/Se x: 61/F Robert beltran M.D.: CHUY LARSEN MD, E.D. Attend francis M.DShruthi: Primes y Tyler MEsperanza: BRANDI LARSEN MD X-Ray #: [id number] Locati on: RAD.WC Other Locati on: Clinic al Histor y: ROUTIN E #24271 08.001 - DIG MAMMO SCREEN ING [place] BILATE RAL DIGITA L SCREEN ING MAMMOG TYRA WITH CAD: 017 Compar basil is made to exams dated: 09/30/19 16 mammog tyra, 015 mammog tyra, 014 mammog tyra, 06/29/2012 mammog tyra, and 012 mammog tyra - [facility] . The tissue of both breast [...] mail. This exam was interp reted at [facility] . Gerhard lopez MD ek/pen rad: 7 12:05: 37 [facility] Techno logist : Rogerio De La O , [facility] letter sent: A1 Mammog bindu Normal Mammog tyra BI-RAD S: 2 Benign Access ion Number : [id number] Transc ribed by: OR Interp reting Physic rg: GERHARD WYATT MD Rec'd in [employer] on : 1407 Electr onical ly Signed by: ROMI WYATT MD on 1205 Techno logist : KL Exam CPT #: G0202, Order #: [id number] Report #: [id number] Med Rec#:M [id number] Report Status : Signed [facility] (Radiology) [address] [place], [address], 10/05/2016 14:21:16 10/06/19 17 10/05/2016 MAMMO , grabiele lance, digit al, bilat eral No observ ation record ed. [facility] ([facility]) [address], [place], [address], 10/05/2016 18:08:22 10/30/19 18 10/27/2017 MAMMO , scree lance, digit al, bilat eral [facility] DIAGNO STIC IMAGIN G DEPART [facility] G [address],[facility] kaitlin kumar [place].0 1201-4 [phone] Patien t: MP VELEZ Phone: Exam Date:0 8 Exam: Dig Mammo Screen ing [place] Attend [facility] M.D.:ANDREAS MARIE MD :10/02 Age/Se x: 62/F Ordernarendra beltran M.D.: CHUY LARSEN MD EEsperanza Attend [facility] M.D.: Primar y Care M.D.: BRANDI LARSEN MD X-Ray #: [id number] Locati on: RAD.WC Other Locati on: Clinic al Histor y: ROUTIN E #[id number] 98.001 - DIG MAMMO SCREEN ING KAVON [...] no mammog raphic eviden ce of malign odra. A 1 year screen ing mammog tyra [...] mail. This exam was interp reted at [facility] . Gladys Trejo M.D. cl/:10/28/2017 16:42: 19 [facility] Techno logist : Surekha John do RT , [facility] letter sent: A1 Mammog bindu Normal Mammog tyra BI-RAD S: 2 Benign Access ion Number : [id number] Transc ribed by: OR Interp reting Physic rg: GLADYS TREJO MD Rec'd in [employer] on : 1642 Electr onical ly Signed by: GLADYS TREJO MD on 164 Techno logist : YAYA Exam CPT #: 91400, Order #: [id number] Report #: [id number] [facility] Rec#:M [id number] Report Status : Signed [facility] (Radiology) [address] [place], [address], 10/30/2017 06:48:19 04/04/20 19 08/01/2018 US, echo ardio gram No observ ation record ed. BARCODE Not Available 2018 12:54:21 11/20/19 20 MAMMkelli Xiong digit al, bilat eral No observ ation record ed. [facility] (Central Scheduling) [address] [facility], [place], [address], 11/20/2019 16:08:59 10/03/19 21 2020 kelli [place] bilat eral [facility] Diagno stic Imagin g [facility] [address] [place] [address] Mammog bindu Report Signed Patien t: Mp Velez 2793 : [address]: Aquilino stewart EMR ID: [id number] Age/Se x: 65/F E.D. Attend ing: Acct: [id number] Loc: RAD.WC PCP: Aquilino stewart MD Admit/ Svc Date: Orderi ng Physic rg: Aquilino stewart MD Date of Servic e: Proced ure(s) : MM screen ing mammo BI Reason for Exam: Routin e Access ion Number (s): [id number] Fax to: cc: Aquilino stewart MD #[id number] - MM SCREEN ING MAMMO BI EXAM: BILATE RAL DIGITA L SCREEN ING MAMMOG TYRA 3D/2D WITH CAD: 021 COMPAR ISONS: Compar basil is made to exams dated: 020 mammog tyra, 10/28/19 18 mammog tyra, and 017 mammog tyra - [facility]' [facility] Imagin [facility] . TECHNI QUE: Digita l mammog bindu [...] Carina Sandoval MD ll/pen rad: 15:08: 52 [facility] Techno logist (s): Tyrell katz RT(R)( M), [facility] letter sent: A1 Mammog bindu Normal Mammog tyra BI-RAD S: 1 Negati ve Electr onical ly signed on at 1508 by Carina Sandoval MD. PKRUTI AK [facility] (Radiology) [address] [place] [address], [address], 2020 20:59:56 12/07/1906/19/2019 MAMMO , grabiele lance, bilat eral No observ ation record ed. [email or web address] Not Available 2020 16:44:45 Result Notes None recorded. Problems Name Problem SNOMED Code Status Onset Date Resolution Date Notes Provider Name and Address Organization Details Recorded Time Multiple joint pain 47615476 Completed 06/17/[address], [address], [facility] [employer] [facility] 6 13:37:41 Cervical radiculo kelly 90550872 Active [address], [address], [facility] [employer] [facility] 6 13:37:41 Scoliosi s deformit y of spine 068080808 Active [address], [address], [facility] [employer] [facility] 6 13:37:41 Asthma 616005465 Active [address], [address], [facility] [employer] [facility] 6 13:37:41 Mass of body structur e 828655547 Completed 06/17/[address], [address], [facility] [employer] [facility] 6 13:37:41 Shoulder joint painful on movement 838849001 Completed 04/03/2019 Teresa Holland MD [address] [place] [address], [address], [facility] [employer] 9 10:34:03 Menopaus al symptom 82240453 Completed 06/17/2015 Felicity Dialloaag Anp [address] [place] [address], [address], [facility] [employer] 6 13:37:41 Acute sinusiti s 52657817 Completed 06/17/2015 Felicity Dialloaag Anp [address] [place] [address], [address], [facility] [employer] 6 13:37:41 Primary fibromya lgia syndrome 73791894 Completed 04/03/2019 Teresa Holland MD [address] [place] [address], [address], [facility] [employer] 9 10:33:42 Disorder of rotator cuff 557153221 Completed 04/03/2019 Teresa Holland MD [address] [place] [address], [address], [facility] [employer] 9 10:34:16 Electroc ardiogra m abnormal 385797714 Active Felicityterry Adame [address], [address], [facility] [employer] 6 14:32:49 Aortic valve regurgit ation 73265447 Active Felicityterry Dial[address], [address], [facility] [employer] 6 14:17:50 Atopic dermatit is 84371147 Completed 201604/03/2019 Teresa Holland MD [address] [place] [address], [address], [facility] [employer] 9 10:34:37 Biceps tendinit is 326567740 Active 2016 s/p right shoulder surgery 2015 Teresa Holland MD [address] [place] [address], [address], [facility] [employer] 9 10:36:26 Acquired trigger finger 9024373 Active 2016 Felicity Guzman [address] [place] [address], [address], [facility] [employer] 7 10:57:59 Insomnia 441058899 Completed 201604/03/2019 Teresa Holland MD [address] [place] [address], [address], [facility] [employer] 9 10:34:27 Difficul ty swallowi ng 964803780 Active 2016 Felicity Guzman [address] [place] [address], [address], [facility] [employer] 7 10:58:03 Problem Notes None recorded. Procedures Surgical History Date Name Laterality Status Provider Name and Address Organization Details Recorded Time 06/24/19 16 Orthopedic Surgery completed Missy Zacarias [facility] [employer] [facility] 07/24/2015 13:51:16 05/24/19 07 Colonoscopy completed Missy Zacarias [facility] [employer] [facility] 07/24/2015 13:51:32 05/24/19 02 Hysterectomy completed DHIRAJ Rivas [address] [place] [address], [address], [facility] [employer] 02/07/2014 11:37:39 08/22/18 60 Tonsillectomy completed DHIRAJ Rivas [address] [place] [address], [address], [facility] [employer] 12/07/2012 11:33:04 Imaging Results Imaging Date Name Status LastModified by Organization Details LastModified Time 09/27/2015 MAMMO, screening, digital, bilateral completed [facility] (Radiology) [address] [place] [address], [address], 09/30/2015 17:23:16 09/30/2016 MAMMO, screening, digital, bilateral completed [facility] (Radiology) [address] [place] [address], [address], 10/05/2016 14:21:16 10/05/2016 MAMMO, screening, digital, bilateral completed [email or web address] [facility] ([facility]) [address] [place] [address], [place], [address], 10/05/2016 18:08:22 10/27/2017 MAMMO, screening, digital, bilateral completed [facility] (Radiology) [address] [place] [address], [address], 10/30/2017 06:48:19 08/01/2018 US, echocardiogram completed [facility] Inform ation not available 04/04/2019 12:54:21 11/20/2019 MAMMO, screening, digital, bilateral completed [facility] (Central Scheduling) [address] [place] [address], [address], 11/20/2019 16:08:59 2020 MAMMO, screening, bilateral completed [facility] (Radiology) [address] [place] [address], [address], 2020 20:59:56 06/19/2019 MAMMO, screening, bilateral completed [...] 114 mm[Hg] 72 mm[Hg] Missy Hernandez in [facility] 07/24/2015 13:50:06 Date Recorded Body height Body mass index (BMI) Body weight Heart rate Respiratory rate Systolic blood pressure Diastolic blood pressure Provider Name and Address Organization Details Last Updated DateTime 7 146.05 cm 24.7 kg/m2 36929.7 1 g 68 /min 16 /min 120 mm[Hg] 80 mm[Hg] Kate Gusman LPN [facility] [employer] [facility] 7 10:16:41 Date Recorded Body height Body temperature Oxygen saturation Oxygen saturation in Arterial blood by Pulse oximetry Heart rate Systolic blood pressure Diastolic blood pressure Provider Name and Address Organization Details Last Updated DateTime 8 146.05 cm 99.2 [degF] 97 % 97 % 74 /min 118 mm[Hg] 84 mm[Hg] Batsheva Harrell [facility] 8 11:03:35 Date Recorded Body height Body mass index (BMI) Body weight Heart rate Systolic blood pressure Diastolic blood pressure Provider Name and Address Organization Details Last Updated DateTime 8 146.05 cm 24.7 kg/m2 53274.7 1 g 72 /min 116 mm[Hg] 80 mm[Hg] Lety Baron [facility] 8 09:29:36 Date Recorded Body weight Body mass index (BMI) Body height Heart rate Systolic blood pressure Diastolic blood pressure Provider Name and Address Organization Details Last Updated DateTime 9 05479.9 g 25.1 kg/m2 146.05 cm 64 /min 110 mm[Hg] 68 mm[Hg] Lety Baron [facility] 9 10:12:12 Social History Question Answer Notes LastModified by Organizat ion Details LastModified Time Tobacco Smoking Status Former Smoker 1 pdd x 5-8 years Quit 1978 Missy Tiwari, [address], [address], [facility] [employer] [facility] 02/07/2014 11:38:26 Do You Have An Advance [...] Information not available 07/06/2012 What Type Of Fitness Teacher Do You Use? Relative Information not available [...] Of Mental Health Or Substance Abuse? No [email or web address] Information not available 01/16/2015 Have You Ever Experienced Any Trauma Such As A Sexual Assault, Domestic Violence, Combat Experience, A Sudden Of A Loved One, Or Anything That Made You Excessively Afraid? No Information not available 12/07/2012 Language Yi Information not available 12/07/2012 Country Of Origin [facility] Information not available 12/07/2012 Dietary Specific [...] Sister Problem 59 breast cancer at 47 [email or web address] Not available 07/24/2015 13:51:16 Brother Problem 52 well [email or web address] Not availabl e 07/24/2015 13:51:16 Brother Problem 60 pancre atic cancer Not available 07/24/2015 13:51:16 Sister Problem 64 well [email or web address] Not available 07/24/2015 13:51:16 Father Problem 84 CVA [email or web address] Not available 07/24/2015 13:51:16 Mother Problem 89 well [email or web address] Not available 07/24/2015 13:51:16 Medical History Condition Response Asthma, COPD, Breathing or Lung Disorder Y Anxiety/Depression N Gout N Cardiac History, Heart Murmur, NV N Eye or Vision Problems N Gynecologic problems N Hernia N Thyroid Problems N GI Problems N Developmental or Behavioral Disorders N Blood Pressure High or Low N Breast Problem N Skin Problems N Food or Environmental Allergies N Diabetes N Bladder,Kidney Problems or Recurrent UTI 's N Muscle, Joint, or Bone Problems Y Bleeding Disorder N Arthritis N Infertility N Cancer (of any kind) N Defects or Inherited Diseases N Prostate issues, ED or Sexual Problem [...] preservative free, adsorbed 7 completed Not Available [facility] 06/24/2019 02:16:57 Td (adult), 2 Lf tetanus toxoid, preservative free, adsorbed 3 completed Not Available [facility] 06/24/2019 02:16:57 Tdap 2 completed Not Available [facility] 06/24/2019 02:16:57 Past Encounters Encounter ID Performer Location Encounter Start Date Encounter Closed Date Diagnosis/Indication Diagnosis SNOMED-CT Code Diagnosis ICD10 Code Diagnosis Note [id number] Carina Benitez CMA [address] [address] 07/06/2012 09:47:42 07/06/2012 10:34:14 [id number] DHIRAJ Rivas [address] [address] 12/07/2012 10:39:33 12/07/2012 12:13:16 [id number] Kate Gusman LPN [address] [address] 02/07/2014 10:39:26 02/07/2014 10:53:[id number] [address] 02/07/2014 11:05:26 02/07/2014 11:58:00 Adult health examination 350361800 [id number] [address] [address] 04/13/2014 11:17:25 04/13/2014 12:18:25 Multiple joint pain 14117475 [id number] Kate Gusman LPN [address] [address] 04/18/2014 08:51:25 04/18/2014 09:42:28 Cervical radiculopathy 77573556 [id number] [address] [address] 11/07/2014 08:57:07 11/07/2014 10:20:16 Cervical radiculopathy 88050759 Scoliosis deformity of spine 322816342 Asthma 956128203 Adult heal th examination 900531038 [id number] Missy Zacarias CMA [address] [address] 01/16/2015 09:24:09 01/16/2015 10:11:54 Mass of body structure 891401307 Right lateral superior knee [id number] [address] [address] 03/06/2015 12:19:16 03/06/2015 12:56:20 Shoulder joint painful on movement 159092670 M25.519 [id number] Felicity Adame Anp [address] [address] 06/17/2015 12:50:30 06/17/2015 13:58:38 Disorder of rotator cuff 365943429 M75.81 Electrocar diogram abnormal 211175559 R94.31 [id number] Juju Dang [address] [address] 07/24/2015 13:40:32 07/24/2015 14:22:46 Aortic valve regurgitation 30938409 I35.1 [id number] Felicity Adame Anp [address] [address] 11/05/2016 09:50:55 11/05/2016 11:06:32 Adult health examination 619532599 Z00.00 Atopic dermatitis 608902 01 L20.9 of eyelids Neck pain 80113921 M54.2 right. S/P rotator cuff surgery Biceps tendinitis 911634 007 M75.21 Right. S/p surgery with Dr Ilana neal finger 6761416 M65.30 Insomnia 041141808 G47.0 0 Difficulty swallowing 28 2842624 R13.10 Screening for malignant neoplasm of colon 384598408 Z12.11 Scoliosis deformity of spine 377055199 M41.9 Has been worked up Aortic edi ve regurgitation 21011082 I35.[address] Yuval lemon [id number] Felicity Guzman [address] [address] 07/07/2017 10:48:38 07/07/2017 11:46:44 Pneumonia 739001741 J18.9 [id number] Felicity Guzman [address] [address] 02/14/2018 09:20:09 02/14/2018 10:21:42 Adult health examination 772267825 Z00.00 Aortic edi ve regurgitation 70235018 I35.[address] Yuval lemon Acquired t crane rigger finger 1799287 M65.30 Difficulty swallowing 28 0059909 R13.10 declines referral Screening for malignant neoplasm of colon 045378036 Z12.11 [id number] Teresa Holland MD [address] [address] 04/03/2019 09:50:51 04/03/2019 10:55:10 Adult health examination 366333354 Z00.00 does yoga and weights , will get cologuard / mammo utd, repeat bone density Screening for malignant neoplasm of colon 838241778 Z12.11 Z12.12 Menopause present 195402 006 N95.1 Aortic edi ve regurgitation 39586112 I35.1 gets echo every few years Asthma 938810308 J45.90 9 very rarely use inhaler Health [...] 07/24/2015 2 [employer] [place]se [place] [id number] [place] 07/24/2015 1 [facility]MEDICAID O) [place]se [place] [id number] [place] 11/05/2016 1 [facility] (MEDICAID O) [place] [id number] [place] 07/07/2017 1 [facility] TYPE I (HMO) [place] [id number] Ese Leo Preet 04/03/2019 1 [facility] [id number] [place]se [place] [id number] [place]se [place] Notes Date Note Type Note [...] and she has no pain.? Felicity Guzman [address] [place] [address], [address], [employer] 07/24/2015 14:18:22 11/05/2016 text/html Patient is here [...] on this.Also c/o left middle finger contraction. Fleicity Guzman [address] [place] [address], [place], [address], [employer] 11/05/2016 10:59:49 07/07/2017 text/html Patient is here for a 8 day history of sinus pressure, chest pressure, cough and low-grade fever and SOB. She denies myalgias.She has been drinking soup and tea. Felicity Guzman [address] [place] [address], [address], [facility] [employer] 07/07/2017 11:45:45 02/14/2018 text/html Patient is here [...] in 2011.Declines flu vaccine. Felicity Guzman [address] [place], [address], [employer] 02/21/2018 22:29:33 04/03/2019 text/html here for pe, wor ks at [employer] , has back problems and needs to wear sneakers, lost to pancreatic cancer, has grandchildren and helps with elderly mom in custodial, asthma under control Teresa Holland MD [address] [place] [address], [address], [employer] 04/03/2019 10:53:03 OBGyn Episode No OBEpisode recorded.
== END 2024-07-31 09:56 | disposition home or self-care (01) ==
PROVIDERS: Visit Provider Internal Medicine
DX: M54.16 Radiculopathy, lumbar region (principal); M62.85 Dysfunction of the multifidus muscles, lumbar region; M47.816 Spondylosis without myelopathy or radiculopathy, lumbar region; M41.9 Scoliosis, unspecified
CPT/HCPCS: 99024

== ENCOUNTER → 2024-07-31 09:35 | Outpatient (BNVA) | payer MEDICARE, SELFPAY | PROVIDERS: Visit Provider Internal Medicine | DX: M54.16 Radiculopathy, lumbar region (principal); M62.85 Dysfunction of the multifidus muscles, lumbar region; M47.816 Spondylosis without myelopathy or radiculopathy, lumbar region; M41.9 Scoliosis, unspecified | CPT/HCPCS: 99212 ==

== ENCOUNTER → 2024-09-05 08:26 | Outpatient (BNVA) | payer MEDICARE, SELFPAY | PROVIDERS: Visit Provider Internal Medicine ==

== ENCOUNTER 2024-09-20 09:03 | Outpatient (AMB) | payer MEDICARE, SELFPAY ==
--- NOTE | 2024-09-20 09:12 | A.OFFVIS_ITS ---
Vital Signs 09/20/24 09:13 Height 4 ft 11 in Weight 116 lb BMI 23.4 BP 127/78 Blood Pressure Location Lt brachial Position Sitting Respiration 16 Pulse 72 Pulse Source Pulse Oximeter Pulse Oximetry (%) 93 Oxygen Delivery Method Room Air Intake Visit Reasons: Sprint removal Intake Note: Sprint lead pulled, lead intact including the tip Core Composer Machine Tender Required: No Allergies No Known Allergies Allergy (Verified 09/20/24 09:17) Medication List - Last Reconciled 09/20/24 by Madison Sanchez LPN alprazolam 0.25 mg PO DAILY PRN cholecalciferol (vitamin D3) 25 mcg PO DAILY geriatric [id number] 1 tab PO DAILY hydrocodone-acetaminophen 5-325 mg 1 tab PO BID PRN ibuprofen 200 mg PO Q6H PRN magnesium 250 mg PO DAILY vitamin B complex 1 tab PO DAILY HPI HPI Sprint removal: Details: History of Present Illness The patient is a 68-year-old female presenting for a follow-up after undergoing temporary L5 nerve stimulation. She has a history of chronic lumbar pain with noted scoliosis. Previous interventions have included two epidural steroid injections, which provided temporary relief. The first injection result was notable for pain relief lasting one month, while a second injection yielded two months of decreased pain. Temporary nerve stimulation was applied but removed due to exacerbation without significant long-term relief. Motor nerve stimulation was reported to provide better relief compared to sensory stimulation. The patient expresses apprehension regarding further invasive procedures, such as the consideration of a spinal cord stimulator, due to her anatomical challenges and prior experiences. Pain Description - Onset: Chronic - Timing: Inconsistent, with better and worse days. - Quality and Character: Persistent discomfort, intermittent. - Location: Lumbar spine. - Relief Factors: Motor nerve stimulation provided some relief; swimming (weightlessness) may help. - Exacerbating Factors: Sensory nerve stimulation, perhaps involvement in elevated temperatures. - Impact on Activities: Some activities, like walking in extreme temperatures, exacerbate discomfort. Physical Exam - Spine- Visualization of a notable curvature without visible abnormalities or infections. Results Pain Management - Affect: Patient reports inconsistent pain levels with varying daily relief and continues to evaluate emotional well-being. - Analgesia: Previous epidural steroid injections provided short-term relief; no current medication effectiveness specifically discussed. - Adverse Effects: Not specifically discussed, concerns about invasive procedures noted. - Activities of Daily Living: Variability in daily pain impacting daily activities; advised to utilize a pool for potential relief. - Aberrant Drug-Related Behaviors: No evidence of medication misuse noted. Physical Exam Vital Signs: Last Vital Signs Pulse 72 09/20/24 09:13 Resp 16 09/20/24 09:13 BP 127/78 09/20/24 09:13 Pulse Ox 93 09/20/24 09:13 Oxygen Delivery Method Room Air 09/20/24 09:13 BMI result Body Mass Index 23.4 Assessment & Plan Assessment & Plan (1) Right lumbar radiculitis: Code(s): M54.16 - Radiculopathy, lumbar region Category: Medical (2) Spondylolisthesis, lumbar region: Code(s): M43.16 - Spondylolisthesis, lumbar region Category: Medical (3) Postlaminectomy syndrome: Code(s): M96.1 - Postlaminectomy syndrome, not elsewhere classified Category: Medical Plan Plan - Re-evaluation of epidural steroid injection efficacy for temporary relief in the future if/when symptoms worsen. - Consider future PNS with motor stimulation for better control. - Explore alternatives due to patient concerns about invasive solutions. SCS as last resort. - Utilize non-invasive solutions like hydrotherapy for temporary relief and comfort. Patient was informed and verbally consented to the use of an ambient scribe for clinic note documentation during this visit. Discussion Notes I discussed with the patient the current findings, emphasizing that while temporary nerve stimulation was used, it could not be as helpful due to anatomy complexity and patient discomfort. Concerns regarding spinal cord stimulator were validated with a detailed discussion that focused on complications related to her spinal curvature. As a next step, we discussed alternatives like epidural injections, advocating a cautious approach with minimally invasive options, ensuring the patient remains comfortable with therapeutic choices. Follow-up plans should the pain escalate were also discussed. Patient Instructions - Consider using the pool consistently over summer for weightless decompression. - Engage in physical activities as tolerated, recognizing limitations on pain levels. - Contact us if experiencing increased pain or complications. - Continue monitoring pain levels and note effectiveness of different activities at alleviating discomfort. Coding Level of Care Code Est Pt Level 3 (41469) Diagnoses Right lumbar radiculitis M54.16 Spondylolisthesis, lumbar region M43.16 Postlaminectomy syndrome M96.1
[2024-09-20 09:13] VITALS: BP 127/78; PULSE 72; RESP 16; O2SAT 93; BMI 23.4
--- OUTSIDE RECORDS SUMMARY | 2024-09-20 09:31 | XMS_ITS | Data Portability ---
Author Organization [place] - [facility], [facility] Clinical Specialist Vascular Address [address] [place] [address] Care Team Providers Care Flour Broker Name Role Phone TREESA HOLLAND Primary Care Provider Unavailab le Assessment [...] n as required by HIPAA. I authorize [employer] to obtain reimbursem ent for Cologuard and to directly contact and collect a second sample from the patient as appropriat e.ICD-10 Code: Z12.11 2018 [email or web address] (Cologuard Orders Only), [address], [address], [place], [address], 0 07:23:21 CBC 2018 [facility] (Lab), [address], [place], [address], 9 15:59:34 CMP, serum or plasma 2018 [facility] (Lab), [address], [place], [address], 9 16:15:08 cholestero l, total, serum 2018 [facility] (Lab), [address], [place], [address], 9 16:15:09 HDL cholestero l, serum 2018 019 [facility] (Lab), [address], [place], [address], 9 16:15:10 glycohemog lobin, total, blood 2018 019 [facility] (Lab), [address] [facility] [address], [place], [address], 9 17:36:34 TSH, serum or plasma 2018 019 [facility] (Lab), [address], [place], [address], 9 16:15:11 fecal occult blood, immunoassa y, stool 2017 018 [facility] (Lab), [address] [facility] [address], [place], [address], 8 15:07:17 CMP, serum or plasma 2017 018 [facility] (Lab), [address], [place], [address], 8 17:18:55 CBC 2017 018 [facility] (Lab), [address], [place], [address], 8 16:33:54 lipid panel, serum 2017 018 [facility] (Lab), [address], [place], [address], 8 17:18:57 fecal occult blood, immunoassa y, stool 2016 017 [facility] (Lab), [address], [place], [address], 8 10:50:10 CBC 2016 017 [facility] (Lab), [address], [place], [address], 7 16:57:33 CMP, serum or plasma 2016 017 [facility] (Lab), 11 [facility] [address], [place], [address], 7 16:31:48 Referral orthopedic referral - continued right shoulder pain 2016 017 [email or web address] Not available 7 10:21:50 orthopedic referral - Left middle finger 2016 017 [facility] Not available 7 10:22:[address] referral - aortic valve regurg noted on echo, abnormal ECG 2015 016 [facility] (Cardiology), [address] [place], [address], 6 13:42:57 Procedures None recorded. Surgeries None recorded. Imaging MAMMO, screening, digital, bilateral 2018 019 [facility] (Central Scheduling), [address] [place] [address], [address], 0 11:45:15 bone density 2018 019 [facility] (Central Scheduling), [address] [place] [address], [address], 0 08:18:53 Medication Orders ProAir HFA 90 mcg/actuat ion aerosol inhaler 2018 019 [facility], [address] [facility] [place], [address], 9 10:48:28 Augmentin 875 mg-125 mg tablet 2017 018 [facility], [address] [facility], [place], [address], 8 09:28:25 codeine 10 mg-guaifen esin 100 mg/5 mL oral liquid 2017 018 [facility], [address] [place], [address], 8 09:28:27 ProAir HFA 90 mcg/actuat ion aerosol inhaler 2017 018 [facility], [address] [place], [address], 8 09:28:29 TobraDex 0.3 %-0.1 % eye ointment 2016 017 [facility], [address] [place], [address], 8 11:03:55 Patient TargetsNo targets recorded. Patient Instructions Encounter Date Encounter Id Patient Instructions Last Modified By Organization Details Last Modified Time 07/24/2015 [id number] Will send to cardiology.? ? ? Will f/u as needed. [email or web address] Not available 07/24/2015 14:17:50 11/05/2016 [id number] Declines colonoscopy referral at this time. Will do ifob. Declines any help with insomnia or shoulder pain. Will send back to ortho to have shoulder reassessed and for trigger finger. F/u as needed. [email or web address] Not available 11/05/2016 10:49:31 07/07/2017 [id number] Will return to office if symptoms do not improve with treatment. kfarevaag Not available 07/07/2017 11:45:19 02/14/2018 [id number] Breast US in Apr , will get ifob. she declines flu vacc. Will call patient when lab tests are resulted. 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 Test Type: [place] site algor ithmi c bety sis of [...] years or older , who are at [facility] for CRC. Colog uard has been appro [...] , singl e point in time) of [facility] adult s aged 50-84 . Colog [...] ution s can be found at [email or web address].c [facility] m. Rx only. Not Available [facility] (Cologuard Orders Only) [address], [place], [address], 04/02/2020 06:09:37 11/06/19 17 11/05/2016 CMP, serum or plasm a glucose 102 mg/dL 70-109 normal Not Available [address] [place] [address], [address], 11/05/2016 16:31:48 11/06/19 17 11/05/2016 CMP, serum or plasm a BUN 16 mg/dL 6-23 normal Not Available [address] [place] [address], [address], 11/05/2016 16:31:48 11/06/19 17 11/05/2016 CMP, serum or plasm a creatinine 0.87 mg/dL 0.0-1. 3 normal Not Available [address] [place] [address], [address], 11/05/2016 16:31:48 11/06/19 17 11/05/2016 CMP, serum [...] G5 (kidn ey failu re). Not Available [address] [place] [address], [address], 11/05/2016 16:31:48 11/06/19 17 11/05/2016 CMP, serum or plasm a calcium 9.1 mg/dL 8.3-9. 9 normal Effec tive 5: Pleas e note the refer ence range for this test has perla ed. Not Available [address] [place] [address], [address], 11/05/2016 16:31:48 11/06/19 17 11/05/2016 CMP, serum or plasm a total protein 6.8 g/dL 5.9-7. 9 normal Effec tive 5/5/1 5: Pleas e note the refer ence range for this test has perla ed. Exact pedia tric range s are not estab lishe d, but tend to be lower than adult range s. Not Available [address] [place] [address] [address] [place] [address], [address], 11/05/2016 16:31:48 11/06/19 17 11/05/2016 CMP, serum or plasm a albumin 4.1 g/dL 2.9-4. 7 normal Effec tive 015: The Album in metho d perla ed from a BCG to a BCP metho d. Resul ts will be appro ximat radha 0.4 g/dL lower than the old metho d. Laney nair note the perla e in the refer ence range . Not Available [address] [place] [address], [address], 11/05/2016 16:31:48 11/06/19 17 11/05/2016 CMP, serum or plasm a alkaline phosphatase 48 IU/L 18-210 normal Not Available [address] [place] [address], 299[address], 11/05/2016 16:31:48 11/06/19 17 11/05/2016 CMP, serum or plasm a SGOT (AST) 19 IU/L 15-37 normal Effec tive 5: Laney nair note the refer ence range for this test has perla ed. Not Available [address] [place] [address], [address], 11/05/2016 16:31:48 11/06/19 17 11/05/2016 CMP, serum or plasm a bilirubin total 0.3 mg/dL 0.2-1. 3 normal Not Available [address] [place] [address], [address], 11/05/2016 16:31:48 11/06/19 17 11/05/2016 CMP, serum or plasm a SGPT (ALT) 31 IU/L 13-56 normal Not Available [address] [place] [address] Draw[address] [place] [address], [address], 11/05/2016 16:31:48 11/06/19 17 11/05/2016 CMP, serum or plasm a sodium 133 mEq/L 135-14 5 low Not Available [address] [place] [address], [address], 11/05/2016 16:31:48 11/06/19 17 11/05/2016 CMP, serum or plasm a potassium 4.3 mEq/L 3.5-5. 1 normal Not Available [address] [place] [address], [address], 11/05/2016 16:31:48 11/06/19 17 11/05/2016 CMP, serum or plasm a chloride 97 mEq/L 98-112 low Not Available [address] [place] [address], [address], 11/05/2016 16:31:48 11/06/19 17 11/05/2016 CMP, serum or plasm a CO2 31 mEq/L 20-32 normal Not Available [address] [place] [address], [address], 11/05/2016 16:31:48 11/06/19 17 11/05/2016 CMP, serum or plasm a anion gap 5 mEq/L 5-15 normal Not Available [address] [place] [address], [address], 11/05/2016 16:31:48 11/06/19 17 11/05/2016 CBC WBC count 4.9 K/mm3 4.0-11 .0 normal Not Available [address] [place] [address], [address], 11/05/2016 16:57:33 11/06/19 17 11/05/2016 CBC red blood cell count 4.17 M/uL 4.00-5 .20 normal Not Available [address] [place] [address], [address], 11/05/2016 16:57:33 11/06/19 17 11/05/2016 CBC hemoglobin 13.2 gm/dL 12.0-1 6.0 normal Not Available [address] [place] [address], [place], [address], 11/05/2016 16:57:33 11/06/19 17 11/05/2016 CBC hematocrit 40.0 % 36.0-4 6.0 normal Not Available [address] [place] [address], [address], 11/05/2016 16:57:33 11/06/19 17 11/05/2016 CBC MCV 95.8 fL 86-99 normal Not Available [address] [place] [address], [address], 11/05/2016 16:57:33 11/06/19 17 11/05/2016 CBC RDW 12.2 % 11.5-1 6.0 normal Not Available [address] [place] [address], [address], 11/05/2016 16:57:33 11/06/19 17 11/05/2016 CBC plt count 251 K/uL 140-44 0 normal Not Available [address] [place] [address], 58[address], 11/05/2016 16:57:33 11/06/19 17 11/05/2016 CBC ne# 3.2 K/uL 1.5-7. 5 normal Not Available [address] [place] [address], [address], 11/05/2016 16:57:33 11/06/19 17 11/05/2016 CBC ly# 1.2 K/uL 1.0-4. 5 normal Not Available [address] [place] [address], [address], 11/05/2016 16:57:33 11/06/19 17 11/05/2016 CBC MO# 0.2 K/uL 0.0-0. 8 normal Not Available [address] [place] [address], [address], 11/05/2016 16:57:33 11/06/19 17 11/05/2016 CBC eo# 0.3 K/uL 0.0-0. 4 normal Not Available [address] [place] [address], [address], 11/05/2016 16:57:33 11/06/19 17 11/05/2016 CBC ba# 0.0 K/uL 0.0-0. 2 normal Not Available [address] [place] [address], [address], 11/05/2016 16:57:33 11/06/19 17 11/05/2016 CBC ne% 64.5 % normal Not Available [address] [place] [address], 17569, 11/05/2016 16:57:33 11/06/19 17 11/05/2016 CBC ly% 25.0 % normal Not Available [address] [place] [address], 118[address], 11/05/2016 16:57:33 11/06/19 17 11/05/2016 CBC MO% 4.9 % normal Not Available [address] [place] [address], 8[address], 11/05/2016 16:57:33 11/06/19 17 11/05/2016 CBC eo% 5.2 % normal Not Available [address] [place] [address], 706[address], 11/05/2016 16:57:33 11/06/19 17 11/05/2016 CBC ba% 0.5 % normal Not Available [address] [place] [address], 037[address], 11/05/2016 16:57:33 12/08/19 17 12/07/2016 sodiu m, urine sodium, random urine 21 mEq/L normal Not Available [address] [place] [address], 6[address], 12/07/2016 14:17:24 12/08/19 17 12/07/2016 BMP, serum or plasm a glucose 83 mg/dL 70-109 normal Not Available [address] [place] [address], 0[address], 12/07/2016 14:33:32 12/08/19 17 12/07/2016 BMP, serum or plasm a BUN 19 mg/dL 6-23 normal Not Available [address] [place] [address], 18[address], 12/07/2016 14:33:32 12/08/19 17 12/07/2016 BMP, serum or plasm a creatinine 1.17 mg/dL 0.0-1. 3 normal Not Available [address] [place] [address], 623[address], 12/07/2016 14:33:32 12/08/19 17 12/07/2016 BMP, serum [...] G5 (kidn ey failu re). Not Available [address] [place] [address], 01346, 12/07/2016 14:33:32 12/08/19 17 12/07/2016 BMP, serum or plasm a calcium 8.9 mg/dL 8.3-9. 9 normal Effec tive 5: Pleas e note the refer ence range for this test has perla ed. Not Available [address] [place] [address] [address] [place] [address], [address], 12/07/2016 14:33:32 12/08/19 17 12/07/2016 BMP, serum or plasm a sodium 135 mEq/L 135-14 5 normal Not Available [address] [place] [address], 589[address], 12/07/2016 14:33:32 12/08/19 17 12/07/2016 BMP, serum or plasm a potassium 4.4 mEq/L 3.5-5. 1 normal Not Available [address] [place] [address], 00575, 12/07/2016 14:33:32 12/08/19 17 12/07/2016 BMP, serum or plasm a chloride 97 mEq/L 98-112 low Not Available [address] [place] [address], 54904, 12/07/2016 14:33:32 12/08/1912/07/2016 BMP, serum or plasm a CO2 30 mEq/L 20-32 normal Not Available [address] [place] [address], 76732, 12/07/2016 14:33:32 12/08/1912/07/2016 BMP, serum or plasm a anion gap 8 mEq/L 5-15 normal Not Available [address] [place] [address], [address], 12/07/2016 14:33:32 12/08/1912/07/2016 TSH, serum or plasm a thyroid stimulating hormone 2.02 uIU/m L 0.36-3 .74 normal Effec tive 5: Laney nair note the refer ence range for this test has perla ed. Not Available [address] [place] [address], 81995, 12/07/2016 14:33:33 02/15/20 18 02/14/2018 CBC WBC count 5.0 K/mm3 4.0-11 .0 normal Not Available [address] [place] [address], [address], 02/14/2018 16:33:54 02/15/20 18 02/14/2018 CBC red blood cell count 4.24 M/uL 4.00-5 .50 normal Not Available [address] [place] [address], [address], 02/14/2018 16:33:54 02/15/20 18 02/14/2018 CBC hemoglobin 13.6 gm/dL 12.0-1 6.0 normal Not Available [address] [place] [address], [address], 02/14/2018 16:33:54 02/15/20 18 02/14/2018 CBC hematocrit 40.0 % 37.0-4 7.0 normal Not Available [address] [place] [address], 18405, 02/14/2018 16:33:54 02/15/20 18 02/14/2018 CBC MCV 94.3 fL 80.0-1 00.0 normal Not Available [address] [place] [address], 485[address], 02/14/2018 16:33:54 02/15/20 18 02/14/2018 CBC RDW 12.1 % 11.5-1 6.0 normal Not Available [address] [place] [address], 55759, 02/14/2018 16:33:54 02/15/20 18 02/14/2018 CBC plt count 249 K/uL 140-40 0 normal Not Available [address] [place] [address], 33670, 02/14/2018 16:33:54 02/15/20 18 02/14/2018 CBC NRBC% 0.0 % 0.0-0. 7 normal Not Available [address] [place] [address], [address], 02/14/2018 16:33:54 02/15/20 18 02/14/2018 CBC ne# 2.74 K/uL 1.50-7 .50 normal Not Available [address] [place] [address] [address] [place] [address], 82352, 02/14/2018 16:33:54 02/15/20 18 02/14/2018 CBC ly# 1.28 K/uL 1.00-4 .50 normal Not Available [address] [place] [address] [address] [place] [address], 70319, 02/14/2018 16:33:54 02/15/20 18 02/14/2018 CBC MO# 0.41 K/uL 0.00-0 .80 normal Not Available [address] [place] [address] [address] [place] [address], 65356, 02/14/2018 16:33:54 02/15/20 18 02/14/2018 CBC eo# 0.51 K/uL 0.00-0 .40 high Not Available [address] [place] [address] [address] [place] [address], 64594, 02/14/2018 16:33:54 02/15/20 18 02/14/2018 CBC ba# 0.04 K/uL 0.00-0 .20 normal Not Available [address] [place] [address] [address] [place] [address], 57[address], 02/14/2018 16:33:54 02/15/20 18 02/14/2018 CBC Ig# 0.01 K/uL 0.00-0 .10 normal Not Available [address] [place] [address] [address] [place] [address], 11371, 02/14/2018 16:33:54 02/15/20 18 02/14/2018 CBC ne% 54.9 % normal Not Available [address] [place] [address] [address] [place] [address], 34803, 02/14/2018 16:33:54 02/15/20 18 02/14/2018 CBC ly% 25.7 % normal Not Available [address] [place] [address] [address] [place] [address], 85377, 02/14/2018 16:33:54 02/15/20 18 02/14/2018 CBC MO% 8.2 % normal Not Available [address] [place] [address], 72825, 02/14/2018 16:33:54 02/15/20 18 02/14/2018 CBC eo% 10.2 % normal Not Available [address] [place] [address], 21750, 02/14/2018 16:33:54 02/15/20 18 02/14/2018 CBC ba% 0.8 % normal Not Available [address] [place] [address], 67686, 02/14/2018 16:33:54 02/15/20 18 02/14/2018 CBC Ig% 0.2 % 0.0-1. 4 normal Not Available [address] [place] [address], 60319, 02/14/2018 16:33:54 02/15/20 18 02/14/2018 CMP, serum or plasm a glucose 91 mg/dL 70-100 normal Not Available [address] [place] [address], 93484, 02/14/2018 17:18:55 02/15/20 18 02/14/2018 CMP, serum or plasm a BUN 15 mg/dL 6-23 normal Not Available [address] [place] [address], 87640, 02/14/2018 17:18:55 02/15/20 18 02/14/2018 CMP, serum or plasm a creatinine 0.89 mg/dL 0.0-1. 3 normal Not Available [address] [place] [address], 25169, 02/14/2018 17:18:55 02/15/20 18 02/14/2018 CMP, serum [...] G5 (kidn ey failu re). Not Available [address] [place] [address], 56[address], 02/14/2018 17:18:55 02/15/20 18 02/14/2018 CMP, serum or plasm a calcium 9.7 mg/dL 8.3-9. 9 normal Not Available [address] [place] [address], 06715, 02/14/2018 17:18:55 02/15/2002/14/2018 CMP, serum or plasm a total protein 7.0 g/dL 5.9-7. 9 normal Exact pedia tric range s are not estab lishe d, but tend to be lower than adult range s. Not Available [address] [place] [address], 91488, 02/14/2018 17:18:55 02/15/20 18 02/14/2018 CMP, serum or plasm a albumin 4.5 g/dL 2.9-4. 7 normal Not Available [address] [place] [address], 04686, 02/14/2018 17:18:55 02/15/20 18 02/14/2018 CMP, serum or plasm a alkaline phosphatase 50 IU/L 18-210 normal Not Available [address] [place] [address], 34035, 02/14/2018 17:18:55 02/15/20 18 02/14/2018 CMP, serum or plasm a SGOT (AST) 30 IU/L 15-37 normal Not Available [address] [place] [address], 04023, 02/14/2018 17:18:55 02/15/20 18 02/14/2018 CMP, serum or plasm a bilirubin total 0.4 mg/dL 0.2-1. 3 normal Not Available [address] [place] [address], 77906, 02/14/2018 17:18:55 02/15/20 18 02/14/2018 CMP, serum or plasm a SGPT (ALT) 33 IU/L 13-56 normal Not Available [address] [place] [address], 91154, 02/14/2018 17:18:55 02/15/20 18 02/14/2018 CMP, serum or plasm a sodium 138 mEq/L 135-14 5 normal Not Available [address] [place] [address], 93444, 02/14/2018 17:18:55 02/15/20 18 02/14/2018 CMP, serum or plasm a potassium 4.9 mEq/L 3.5-5. 1 normal Not Available [address] [place] [address], 33193, 02/14/2018 17:18:55 02/15/20 18 02/14/2018 CMP, serum or plasm a chloride 100 mEq/L 98-112 normal Not Available [address] [place] [address], 83710, 02/14/2018 17:18:55 02/15/20 18 02/14/2018 CMP, serum or plasm a CO2 30 mEq/L 20-32 normal Not Available [address] [place] [address], 96845, 02/14/2018 17:18:55 02/15/20 18 02/14/2018 CMP, serum or plasm a anion gap 8 mEq/L 5-15 normal Not Available [address] [place] [address] Draw[address] [place] [address], 30386, 02/14/2018 17:18:55 02/15/20 18 02/14/2018 lipid panel , serum cholesterol 228 mg/dL normal BORDE RLINE HIGH <200 Rodolfo able 200-2 39 Borde rline High >=240 High Not Available [address] [place] [address], 27844, 02/14/2018 17:18:57 02/15/20 18 02/14/2018 lipid panel , serum triglyceride 76 mg/dL normal YOLI L <=150 Yoli l 150-1 99 Borde rline High 200-4 99 High >=500 Very High Not Available [address] [place] [address], 01000, 02/14/2018 17:18:57 02/15/20 18 02/14/2018 lipid panel , serum HDL 88 mg/dL normal OPTIM AL <40 Low >=60 Optim al Not Available [address] [place] [address], 21620, 02/14/2018 17:18:57 02/15/20 18 02/14/2018 lipid panel , serum calculated LDL 125 mg/dL normal NEAR OPTIM AL <100 Optim al 100-1 29 Near optim al 130-1 59 Borde rline High 160-1 89 High >=190 Very High The above class ifica tions are based on the recom menda tions of the NCEP Exper t Panel , (ATP III, 2001) . Not Available [address] [place] [address], 108[address], 02/14/2018 17:18:57 02/22/20 18 02/21/2018 fecal occul t blood , immun oassa y, stool immuno fecal occult blood NEGATI VE negati ve normal Not Available [address] [place] [address], 82145, 02/21/2018 15:07:17 04/03/2004/03/2019 CBC WBC count 6.1 K/mm3 4.0-11 .0 normal Not Available [address] [place] [address], 00487, 04/03/2019 15:59:34 04/03/2004/03/2019 CBC red blood cell count 4.10 M/uL 4.00-5 .50 normal Not Available [address] [place] [address], 42096, 04/03/2019 15:59:34 04/03/2004/03/2019 CBC hemoglobin 13.0 gm/dL 12.0-1 6.0 normal Not Available [address] [place] [address], 40755, 04/03/2019 15:59:34 04/03/2004/03/2019 CBC hematocrit 39.7 % 37.0-4 7.0 normal Not Available [address] [place] [address], 31303, 04/03/2019 15:59:34 04/03/2004/03/2019 CBC MCV 96.8 fL 80.0-1 00.0 normal Not Available [address] [place] [address], 13833, 04/03/2019 15:59:34 04/03/2004/03/2019 CBC RDW 11.9 % 11.5-1 6.0 normal Not Available [address] [place] [address], 70147, 04/03/2019 15:59:34 04/03/2004/03/2019 CBC plt count 244 K/uL 140-40 0 normal Not Available [address] [place] [address], 48217, 04/03/2019 15:59:34 04/03/2004/03/2019 CBC mean platelet volume 10.5 fL 8.6-12 .5 normal Not Available [address] [place] [address], 22058, 04/03/2019 15:59:34 04/03/20 19 04/03/2019 CBC NRBC% 0.0 % 0.0-0. 7 normal Not Available [address] [place] [address] [address] [place] [address], 16230, 04/03/2019 15:59:34 04/03/20 19 04/03/2019 CBC ne# 3.89 K/uL 1.50-7 .50 normal Not Available [address] [place] [address], 00937, 04/03/2019 15:59:34 04/03/20 19 04/03/2019 CBC ly# 1.41 K/uL 1.00-4 .50 normal Not Available [address] [place] [address], 30419, 04/03/2019 15:59:34 04/03/20 19 04/03/2019 CBC MO# 0.41 K/uL 0.00-0 .80 normal Not Available [address] [place] [address], 78482, 04/03/2019 15:59:34 04/03/20 19 04/03/2019 CBC eo# 0.32 K/uL 0.00-0 .40 normal Not Available [address] [place] [address], 14415, 04/03/2019 15:59:34 04/03/20 19 04/03/2019 CBC ba# 0.05 K/uL 0.00-0 .20 normal Not Available [address] [place] [address], 56069, 04/03/2019 15:59:34 04/03/20 19 04/03/2019 CBC Ig# 0.01 K/uL 0.00-0 .10 normal Not Available [address] [place] [address], 83192, 04/03/2019 15:59:34 04/03/20 19 04/03/2019 CBC ne% 63.8 % normal Not Available [address] [place] [address], 15759, 04/03/2019 15:59:34 04/03/20 19 04/03/2019 CBC ly% 23.2 % normal Not Available [address] [place] [address], 90281, 04/03/2019 15:59:34 04/03/20 19 04/03/2019 CBC MO% 6.7 % normal Not Available [address] [place] [address], 33651, 04/03/2019 15:59:34 04/03/2004/03/2019 CBC eo% 5.3 % normal Not Available [address] [place] [address], 27797, 04/03/2019 15:59:34 04/03/2004/03/2019 CBC ba% 0.8 % normal Not Available [address] [place] [address], 87469, 04/03/2019 15:59:34 04/03/2004/03/2019 CBC Ig% 0.2 % 0.0-1. 4 normal Not Available [address] [place] [address], [id number], 04/03/2019 15:59:34 04/03/2004/03/2019 CMP, serum or plasm a glucose 91 mg/dL 70-100 normal Not Available [address] [place] [address], [id number], 04/03/2019 16:15:08 04/03/2004/03/2019 CMP, serum or plasm a BUN 24 mg/dL 6-23 high Not Available [address] [place] [address], [id number], 04/03/2019 16:15:08 04/03/2004/03/2019 CMP, serum or plasm a creatinine 0.82 mg/dL 0.0-1. 3 normal Not Available [address] [place] [address], [address], 04/03/2019 16:15:08 04/03/20 19 04/03/2019 CMP, serum [...] G5 (kidn ey failu re). Not Available [address] [place] [address], [address], 04/03/2019 16:15:08 04/03/20 19 04/03/2019 CMP, serum or plasm a calcium 9.7 mg/dL 8.1-10 .4 normal Not Available [address] [place] [address], [address], 04/03/2019 16:15:08 04/03/20 19 04/03/2019 CMP, serum or plasm a total protein 6.9 g/dL 5.9-7. 9 normal Not Available [address] [place] [address], [address], 04/03/2019 16:15:08 04/03/20 19 04/03/2019 CMP, serum or plasm a albumin 4.2 g/dL 2.9-4. 7 normal Not Available [address] [place] [address] [place], [address], 04/03/2019 16:15:08 04/03/20 19 04/03/2019 CMP, serum or plasm a alkaline phosphatase 44 IU/L 18-210 normal Not Available [address] [place] [address], [address], 04/03/2019 16:15:08 04/03/20 19 04/03/2019 CMP, serum or plasm a SGOT (AST) 25 IU/L 15-37 normal Not Available [address] [place] [address], [address], 04/03/2019 16:15:08 04/03/20 19 04/03/2019 CMP, serum or plasm a bilirubin total 0.5 mg/dL 0.2-1. 3 normal Not Available [address] [place] [address], [address], 04/03/2019 16:15:08 04/03/20 19 04/03/2019 CMP, serum or plasm a SGPT (ALT) 31 IU/L 13-56 normal Not Available [address] [place] [address], [address], 04/03/2019 16:15:08 04/03/20 19 04/03/2019 CMP, serum or plasm a sodium 133 mEq/L 135-14 5 low Not Available [address] [place] [address], [address], 04/03/2019 16:15:08 04/03/20 19 04/03/2019 CMP, serum or plasm a potassium 4.5 mEq/L 3.5-5. 1 normal Not Available [address] [place] [address], [address], 04/03/2019 16:15:08 04/03/20 19 04/03/2019 CMP, serum or plasm a chloride 97 mEq/L 98-112 low Not Available [address] [place] [address], [address], 04/03/2019 16:15:08 04/03/20 19 04/03/2019 CMP, serum or plasm a CO2 28 mEq/L 20-32 normal Not Available [address] [place] [address] [address] [place] [address], [address], 04/03/2019 16:15:08 04/03/20 19 04/03/2019 CMP, serum or plasm a anion gap 8 mEq/L 5-15 normal Not Available [address] [place] [address] [facility] [address] [place] [address], [address], 04/03/2019 16:15:08 04/03/20 19 04/03/2019 rafa stero l, total , serum cholesterol 234 mg/dL normal BORDE RLINE HIGH <200 Rodolfo able 200-2 39 Borde rline High >=240 High The above class ifica tions are based on the recom menda tions of the NCEP Exper t Panel , (ATP III, 2001) . Not Available [address] [place] [address], [address], 04/03/2019 16:15:09 04/03/20 19 04/03/2019 HDL rafa stero l, serum HDL 80 mg/dL normal OPTIM AL <40 Low >=60 Optim al The above class ifica tions are based on the recom menda tions of the NCEP Exper t Panel , (ATP III, 2001) . Not Available [address] [place] [address], 42928, 04/03/2019 16:15:10 04/03/20 19 04/03/2019 TSH, serum or plasm a thyroid stimulating hormone 2.88 uIU/m L 0.36-3 .74 normal Not Available [address] [place] [address] [place] [address], 27[address], 04/03/2019 16:15:11 04/03/20 19 04/03/2019 glyco hemog lobin , total , blood glycohemoglo bin (A1C) 5.5 % 4.2-6. 3 normal Recen t trans fusio n will affec t hemog lobin A1c resul ts. Not Available [address] [place] [address], [address], 04/03/2019 17:36:33 09/30/19 16 09/27/2015 MAMMO , scree lance, digit al, bilat tommyl [facility] DEPART [address] kaitlin kumar [place].0 1201-4 [phone] Patien t: MP VELEZ Phone: Exam Date:0 6 Exam: Dig Mammo Screen ing [place] [facility]end [facility] M.D.:ANDREAS MARIE MD :10/02 Age/Se x: 59/F Robert beltran M.D.: CHUY LARSEN MD EEsperanza [facility] M.D.: Francis Lam: BRANDI LARSEN MD X-Ray #: [id number] Locati on: RAD.WC Other Locati on: Clinic al Histor y: ROUTIN E #[id number] 64.001 - DIG MAMMO SCREEN ING [place] BILATE RAL DIGITA L SCREEN ING MAMMOG TYRA WITH CAD: 09/30/19 16 Compar basil is made to exams dated: 015 mammog tyra, 014 mammog tyra, and 06/29/19 13 mammog tyra - [facility] . The tissue of both breast [...] mail. This exam was interp reted at [facility] . Lisa. Seymour haley l/penr ad:09/29 15:17: 56 Imagin g Techno logist : Hope cárdenas RT R M, [facility] letter sent: A1 Mammog bindu Normal Mammog tyra BI-RAD S: 2 Benign Access ion Number : [id number] Transc ribed by: MONTEZ Haddadp reting Physic rg: CARINA SANDOVAL MD Rec'd in [facility] on : 1531 Electr onical ly Signed by: CARINA SANDOVAL MD on 1517 Techno logist : SK Exam CPT #: G0202, Order #: [id number] Report #: [id number] Med Rec#:[id number] Report Status : Signed [facility] (Radiology) [address] [place] [address], [address], 09/30/2015 17:23:16 10/06/19 17 09/30/2016 MAMMO , scree lance, digit al, bilat eral [facility]n [facility] Center DIAGNO STIC IMAGIN G DEPART [facility] DEPART [address]0 1201-4 [phone] Patien t: MP VELEZ Phone: Exam Date:0 7 Exam: Dig Mammo Screen ing [place] Attend francis M.DShruthi:ANDREAS MARIE MD :10/02 Age/Se x: 61/F Robert beltran M.D.: CHUY LARSEN MD, E.D. Attend francis M.DShruthi: Primes y Tyler MEsperanza: BRANDI LARSEN MD X-Ray #: [id number] Locati on: RAD.WC Other Locati on: Clinic al Histor y: ROUTIN E #[id number] 08.001 - DIG MAMMO SCREEN ING [place] BILATE RAL DIGITA L SCREEN ING MAMMOG TYRA WITH CAD: 017 Compar basil is made to exams dated: 09/30/19 16 mammog tyra, 015 mammog tyra, 014 mammog tyra, 06/29/2012 mammog tyra, and 012 mammog tyra - [facility] . The tissue of both breast [...] mail. This exam was interp reted at [facility] . Gerhard lopez MD ek/pen rad: 7 12:05: 37 [facility] Techno logist : Rogerio De La O , [facility] letter sent: A1 Mammog bindu Normal Mammog tyra BI-RAD S: 2 Benign Access ion Number : [id number] Transc ribed by: GA Interp reting Physic rg: GERHARD WYATT MD Rec'd in [facility] on : 1407 Electr onical ly Signed by: ROMI WYATT MD on 1205 Techno logist : KL Exam CPT #: G0202, Order #: [id number] Report #: [id number] Med Rec#:[id number] Report Status : Signed [facility] (Radiology) [address] [place], [address], 10/05/2016 14:21:16 10/06/19 17 10/05/2016 MAMMO , grabiele lance, digit al, bilat eral No observ ation record ed. [facility] ([facility]) [address], [place], [address], 10/05/2016 18:08:22 10/30/19 18 10/27/2017 MAMMO , scree lance, digit al, bilat eral [facility] DIAGNO STIC IMAGIN G DEPART [facility] G [address],[facility] kaitlin kumar [place].0 [phone] Patien t: PM VELEZ Phone: Exam Date:0 8 Exam: Dig Mammo Screen ing [place] Attend [facility] M.D.:ANDREAS MARIE MD :10/02 Age/Se x: 62/F Ordernarendra beltran M.D.: CHUY LARSEN MD EEsperanza Attend [facility] M.D.: Primar y Care M.D.: BRANDI LARSEN MD X-Ray #: [id number] Locati on: RAD.WC Other Locati on: Clinic al Histor y: ROUTIN E #[id number] 98.001 - DIG MAMMO SCREEN ING KAVON [...] mail. This exam was interp reted at [facility] . Gladys Trejo M.D. cl/:10/28/2017 16:42: [facility] Techno logist : Surekha John do RT , [facility] letter sent: A1 Mammog bindu Normal Mammog tyra BI-RAD S: 2 Benign Access ion Number : [id number] [id number] Transc ribed by: GA Interp reting Physic rg: GLADYS TREJO MD Rec'd in [facility] on : 1642 Electr onical ly Signed by: GLADYS TREJO MD on 164 Techno logist : YAYA Exam CPT #: 53858, Order #: [id number] Report #: [id number] [facility] Rec#:M [id number] Report Status : Signed [facility] (Radiology) [address] [place], [address], 10/30/2017 06:48:19 04/04/20 19 08/01/2018 US, echo ardio gram No observ ation record ed. BARCODE Not Available 2018 12:54:21 11/20/19 20 MAMMkelli Xiong digit al, bilat eral No observ ation record ed. [facility] (Central Scheduling) [address] [facility], [place], [address], 11/20/2019 16:08:59 10/03/19 21 2020 kelli [place] bilat eral [facility] Diagno stic Imagin g [facility] [address] [place] [address] Mammog bindu Report Signed Patien t: Mp Velez 2793 : [address]: Aquilino stewart EMR ID: [id number] Age/Se x: 65/F E.D. Attend ing: Acct: [id number] Loc: RAD.WC PCP: Aquilino stewart MD Admit/ Svc Date: Orderi ng Physic rg: Aquilino stewart MD Date of Servic e: Proced ure(s) : MM screen ing mammo BI Reason for Exam: Routin e Access ion Number (s): [id number] Fax to: cc: Aquilino stewart MD #[id number] - MM SCREEN ING MAMMO BI EXAM: BILATE RAL DIGITA L SCREEN ING MAMMOG TYRA 3D/2D WITH CAD: 021 COMPAR ISONS: Compar basil is made to exams dated: 020 mammog tyra, 10/28/19 18 mammog tyra, and 017 mammog tyra - [facility] Imagin [facility] . TECHNI QUE: Digita l mammog [...] Carina Sandoval MD ll/pen rad: 15:08: 52 [facility] Techno logist (s): Tyrell katz RT(R)( M), [facility] letter sent: A1 Mammog bindu Normal Mammog tyra BI-RAD S: 1 Negati ve Electr onical ly signed on at 1508 by Carina Sandoval MD. PKRUTI AK [facility] (Radiology) [address] [place] [address], [address], 2020 20:59:56 12/07/1906/19/2019 MAMMO , grabiele lance, bilat eral No observ ation record ed. [email or web address] Not Available 2020 16:44:45 Result Notes None recorded. Problems Name Problem SNOMED Code Status Onset Date Resolution Date Notes Provider Name and Address Organization Details Recorded Time Pain of multiple joints 10056236 Completed 06/17/[address], [address], [facility] [employer] [facility] 6 13:37:41 Cervical radiculo kelly 69343815 Active [address], [address], [facility] [employer] [facility] 6 13:37:41 Scoliosi s deformit y of spine 536175474 Active [address], [address], [facility] [employer] [facility] 6 13:37:41 Asthma 560352971 Active [address], [address], [facility] [employer] [facility] 6 13:37:41 Mass of body structur e 329068005 Completed 06/17/[address], [address], [facility] [employer] [facility] 6 13:37:41 Shoulder joint painful on movement 144479901 Completed 04/03/2019 Teresa Holland MD [address] [place] [address], [address], [facility] [employer] 9 10:34:03 Menopaus al symptom 00067265 Completed 06/17/2015 Felicity Dialloaag Anp [address] [place] [address], [address], [facility] [employer] 6 13:37:41 Acute sinusiti s 67066276 Completed 06/17/2015 Felicity Dialloaag Anp [address] [place] [address], [address], [facility] [employer] 6 13:37:41 Primary fibromya lgia syndrome 03721189 Completed 04/03/2019 Teresa Holland MD [address] [place] [address], [address], [facility] [employer] 9 10:33:42 Disorder of rotator cuff 191739228 Completed 04/03/2019 Teresa Holland MD [address] [place] [address], [address], [facility] [employer] 9 10:34:16 Electroc ardiogra m abnormal 371204121 Active Felicityterry Adame [address], [address], [facility] [employer] 6 14:32:49 Aortic valve regurgit ation 19827182 Active Felicityterry Adame [address], [address], [facility] [employer] 6 14:17:50 Atopic dermatit is 12636562 Completed 201604/03/2019 Teresa Holland MD [address] [place] [address], [address], [facility] [employer] 9 10:34:37 Biceps tendinit is 330614326 Active 2016 s/p right shoulder surgery 2015 Teresa Holland MD [address] [place] [address], [address], [facility] [employer] [facility] [employer] 9 10:36:26 Acquired trigger finger 8207441 Active 2016 Felicity Adame Anp [address] [place] [address], [address], [facility] [employer] 7 10:57:59 Insomnia 841970281 Completed 201604/03/2019 Teresa Holland MD [address] [place] [address], [address], [facility] [employer] 9 10:34:27 Difficul ty swallowi ng 919393185 Active 2016 Felicity Guzman [address] [place] [address], [address], [facility] [employer] 7 10:58:03 Problem Notes None recorded. Procedures Surgical History Date Name Laterality Status Provider Name and Address Organization Details Recorded Time 06/24/19 16 Orthopedic Surgery completed Missy Zacarias [facility] [employer] 07/24/2015 13:51:16 05/24/19 07 Colonoscopy completed Misys Zacarias [facility] [employer] [facility] 07/24/2015 13:51:32 05/24/19 02 Hysterectomy completed DHIRAJ Rivas [address] [place] [address], [address], [facility] [employer] 02/07/2014 11:37:39 08/22/18 60 Tonsillectomy completed DHIRAJ Rivas [address] [place] [address], [address], [facility] [employer] 12/07/2012 11:33:04 Imaging Results Imaging Date Name Status LastModified by Organization Details LastModified Time 09/27/2015 MAMMO, screening, digital, bilateral completed [facility] (Radiology) [address] [place] [address], [address], 09/30/2015 17:23:16 09/30/2016 MAMMO, screening, digital, bilateral completed [facility] (Radiology) [address] [place] [address], [address], 10/05/2016 14:21:16 10/05/2016 MAMMO, screening, digital, bilateral completed [email or web address] [facility] ([facility]) [address] [place] [address], [address], 10/05/2016 18:08:22 10/27/2017 MAMMO, screening, digital, bilateral completed [facility] (Radiology) [address] [place], [address], 10/30/2017 06:48:19 08/01/2018 US, echocardiogram completed BAR[facility] Inform ation not available 04/04/2019 12:54:21 11/20/2019 MAMMO, screening, digital, bilateral completed [facility] (Central Scheduling) [address] [place] [address], [address], 11/20/2019 16:08:59 2020 MAMMO, screening, bilateral completed [facility] (Radiology) [address] [place] [address], [address], 2020 20:59:56 06/19/2019 MAMMO, screening, bilateral completed [...] 114 mm[Hg] 72 mm[Hg] Missy Hernandez in [facility] [employer] 07/24/2015 13:50:06 Date Recorded Body height Body mass index (BMI) Body weight Heart rate Respiratory rate Systolic blood pressure Diastolic blood pressure Provider Name and Address Organization Details Last Updated DateTime 7 146.05 cm 24.7 kg/m2 05202.7 1 g 68 /min 16 /min 120 mm[Hg] 80 mm[Hg] Kate Gusman LPN [facility] 7 10:16:41 Date Recorded Body height Body temperature Oxygen saturation Oxygen saturation in Arterial blood by Pulse oximetry Heart rate Systolic blood pressure Diastolic blood pressure Provider Name and Address Organization Details Last Updated DateTime 8 146.05 cm 99.2 [degF] 97 % 97 % 74 /min 118 mm[Hg] 84 mm[Hg] Batsheva Harrell [facility] 8 11:03:35 Date Recorded Body height Body mass index (BMI) Body weight Heart rate Systolic blood pressure Diastolic blood pressure Provider Name and Address Organization Details Last Updated DateTime 8 146.05 cm 24.7 kg/m2 83660.7 1 g 72 /min 116 mm[Hg] 80 mm[Hg] Lety Baron [facility] 8 09:29:36 Date Recorded Body weight Body mass index (BMI) Body height Heart rate Systolic blood pressure Diastolic blood pressure Provider Name and Address Organization Details Last Updated DateTime 9 10085.9 g 25.1 kg/m2 146.05 cm 64 /min 110 mm[Hg] 68 mm[Hg] Lety Baron [facility] 9 10:12:12 Social History Question Answer Notes LastModified by Organizat ion Details LastModified Time Tobacco Smoking Status Former Smoker 1 pdd x 5-8 years Quit 1978 Missy Tiwari, [address], [address] 02/07/2014 11:38:26 Do You Have An [...] Information not available 07/06/2012 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 No [email or web address] Information not available 01/16/2015 Have You Ever Experienced Any Trauma Such As A Sexual Assault, Domestic Violence, Combat Experience, A Sudden Of A Loved One, Or Anything That Made You Excessively Afraid? No Information not available 12/07/2012 Language Bhutanese Information not available 12/07/2012 Country Of Origin [facility] Information not available 12/07/2012 Dietary Specific [...] Sister Problem 59 breast cancer at 47 [email or web address] Not available 07/24/2015 13:51:16 Brother Problem 52 well [email or web address] Not availabl e 07/24/2015 13:51:16 Brother Problem 60 pancre atic cancer [email or web address] Not available 07/24/2015 13:51:16 Sister Problem 64 well [email or web address] Not available 07/24/2015 13:51:16 Father Problem 84 CVA Not available 07/24/2015 13:51:16 Mother Problem 89 well [email or web address] Not available 07/24/2015 13:51:16 Medical History Condition Response Asthma, COPD, Breathing or Lung Disorder Y Anxiety/Depression N Gout N Cardiac History, Heart Murmur, DC N Eye or Vision Problems N Gynecologic [...] preservative free, adsorbed 7 completed Not Available [facility] 06/24/2019 02:16:57 Td (adult), 2 Lf tetanus toxoid, preservative free, adsorbed 3 completed Not Available [facility] 06/24/2019 02:16:57 Tdap 2 completed Not Available [facility] 06/24/2019 02:16:57 Past Encounters Encounter ID Performer Location Encounter Start Date Encounter Closed Date Diagnosis/Indication Diagnosis SNOMED-CT Code Diagnosis ICD10 Code Diagnosis Note [id number] Renee Zacarias M.D [address] [address] 07/06/2012 09:47:42 07/06/2012 10:34:14 [id number] Missy Tiwari [employer] B[employer]ER [address] [address] 12/07/2012 10:39:33 12/07/2012 12:13:16 [id number] DHIRAJ Rivas [address] [address] 02/07/2014 10:39:26 02/07/2014 10:53:41 [id number] DHIRAJ Rivas [address] [address] 02/07/2014 11:05:26 02/07/2014 11:58:00 Adult health examination [id number] [id number] Felicity Guzman [address] [address] 04/13/2014 11:17:25 04/13/2014 12:18:25 Pain of multiple joints 85193212 [id number] Felicity Guzman [address] [address] 04/18/2014 08:51:25 04/18/2014 09:42:28 Cervical radiculopathy 46401972 [id number] DHIRAJ Rivas [address] [address] 11/07/2014 08:57:07 11/07/2014 10:20:16 Cervical radiculopathy 75838577 Scoliosis deformity of spine 329890993 Asthma 387885304 Adult [facility] th examination [id number] Jaden Taylor MD [address] [address] 01/16/2015 09:24:09 01/16/2015 10:11:54 Mass of body structure 465181928 Right lateral superior knee [id number] Teresa Holland MD [address] [address] 03/06/2015 12:19:16 03/06/2015 12:56:20 Shoulder joint painful on movement 623894405 M25.519 [id number] Jaden Taylor MD [address] [address] 06/17/2015 12:50:30 06/17/2015 13:58:38 Disorder of rotator cuff 519286446 M75.81 Electrocar diogram abnormal 348519714 R94.31 [id number] Jaden Taylor MD [address] [address] 07/24/2015 13:40:32 07/24/2015 14:22:46 Aortic valve regurgitation 83782340 I35.1 [id number] Jaden Taylor MD [address] [address] 11/05/2016 09:50:55 11/05/2016 11:06:32 Adult health examination 087455125 Z00.00 Atopic dermatitis 375380 01 L20.9 of eyelids Neck pain 57799818 M54.2 right. S/P rotator cuff surgery Biceps tendinitis 112599 007 M75.21 Right. S/p surgery with Dr Ilana neal finger 4873028 M65.30 Insomnia 618240070 G47.0 0 Difficulty swallowing 28 9683402 R13.10 Screening for malignant neoplasm of colon 798379766 Z12.11 Scoliosis deformity of spine 369188479 M41.9 Has been worked up Aortic edi ve regurgitation 73956144 I35.[address] Yuval lemon [id number] Teresa Holland MD [address] [address] 07/07/2017 10:48:38 07/07/2017 11:46:44 Pneumonia 635412319 J18.9 [id number] Teresa Holland MD [address] [address] 02/14/2018 09:20:09 02/14/2018 10:21:42 Adult health examination 145433024 Z00.00 Aortic edi ve regurgitation 84039425 I35.[address] Yuval lemon Acquired t production operations engineer finger 7311323 M65.30 Difficulty swallowing 28 7810597 R13.10 declines referral Screening for malignant neoplasm of colon 378000742 Z12.11 [id number] Teresa Holland MD [address] [address] 04/03/2019 09:50:51 04/03/2019 10:55:10 Adult health examination 943375133 Z00.00 does yoga and weights , will get cologuard / mammo utd, repeat bone density Screening for malignant neoplasm of colon 081798725 Z12.11 Z12.12 Menopause present 617215 006 N95.1 Aortic edi ve regurgitation 58655580 I35.1 gets echo every few years Asthma 789267530 J45.90 9 very rarely use inhaler Health [...] 07/24/2015 2 [employer] [place] [id number] [place] 07/24/2015 1 [facility] [employer] (MEDICAID HMO) [place] [id number] [place] 11/05/2016 1 [facility] (MEDICAID HMO) [place] [id number] [place] 07/07/2017 1 [facility] (HMO) Ese [place] Preet [id number] [place] 04/03/2019 1 [facility] [id number] [place]se [place] [id number] [place] Notes Date Note Type Note [...] and she has no pain.? Felicity Guzman [address] [place] [address], [address], [employer] 07/24/2015 14:18:22 11/05/2016 text/html Patient is here [...] c/o left middle finger contraction. Felicity Guzman [address] [place] [address], [place], [address], [facility] [employer] 11/05/2016 10:59:49 07/07/2017 text/html Patient is here for a 8 day history of sinus pressure, chest pressure, cough and low-grade fever and SOB. She denies myalgias.She has been drinking soup and tea. Felicity Guzman [address] [place] [address], [address], [employer] 07/07/2017 11:45:45 02/14/2018 text/html Patient is here [...] in 2011.Declines flu vaccine. Felicity Guzman [address] [place], [address], [employer] 02/21/2018 22:29:33 04/03/2019 text/html here for pe, wor ks at [employer] , has back problems and needs to wear sneakers, lost to pancreatic cancer, has grandchildren and helps with elderly mom in care home, asthma under control Teresa Holland MD [address] [place], [address], [employer] 04/03/2019 10:53:03 OBGyn Episode No OBEpisode recorded.
== END 2024-09-20 09:35 | disposition home or self-care (01) ==
LOC: HO.PMC 09:03
PROVIDERS: Visit Provider Internal Medicine
DX: M54.16 Radiculopathy, lumbar region (principal); M43.16 Spondylolisthesis, lumbar region; M96.1 Postlaminectomy syndrome, not elsewhere classified
CPT/HCPCS: 99213

== ENCOUNTER → 2024-09-20 09:03 | Outpatient (BNVA) | payer MEDICARE, SELFPAY | PROVIDERS: Visit Provider Internal Medicine | DX: M54.16 Radiculopathy, lumbar region (principal); M43.16 Spondylolisthesis, lumbar region; M96.1 Postlaminectomy syndrome, not elsewhere classified | CPT/HCPCS: 99212 ==